=== PATIENT | female | born 1960 | race Hispanic/Latino ===

== ENCOUNTER 2017-04-22 12:45 | Inpatient (IN) | payer BC ==
--- NOTE | 2017-04-22 13:27 | ED PDOC ---
Arrival/HPI - General Chief Complaint: Cough, Cold, Congestion Time Seen by Provider: 04/22/17 13:17 Historian: Patient - History of Present Illness Narrative History of Present Illness (Text): 04/22/17 13:24 57yo female with no PMHx referred to ED from for abnormal EKG. Patient notes 3days history of brownish productive cough and nasal congestion. States she was taking OTC antitussive and had palpation last night. She went to today for her cold symptoms and EKG was abnormal. she however denies chest pain, SOB, diaphoresis, fever, chills, nausea, vomiting, LE edema, GARBER, PND, dizziness, any other complaint. Past Medical History - Provider Review Nursing Documentation Reviewed: Yes - Infectious Disease Hx of Infectious Diseases: None - Psychiatric Hx Substance Use: No - Anesthesia Hx Anesthesia: No Family/Social History - Physician Review Nursing Documentation Reviewed: Yes Family/Social History: Unknown Family HX Smoking Status: Never Smoked Hx Alcohol Use: No Hx Substance Use: No Allergies/Home Meds Allergies/Adverse Reactions: Allergies No Known Allergies Allergy (Verified 04/22/17 13:16) Home Medications: Home Meds Medication Instructions Recorded Confirmed No Known Home Med 04/22/17 04/22/17 Review of Systems - Physician Review All systems were reviewed & negative as marked: Yes - Review of Systems Constitutional: Normal Eyes: Normal ENT: Rhinorrhea, Sinus Congestion Respiratory: Cough, Sputum. absent: Wheezing Cardiovascular: Normal Gastrointestinal: Normal Genitourinary Female: Normal Musculoskeletal: Normal Skin: Normal Neurological: Normal Endocrine: Normal Hemo/Lymphatic: Normal Psychiatric: Normal Physical Exam Vital Signs Reviewed: Yes Vital Signs Temp Pulse Resp BP Pulse Ox 04/22/17 17:11 98.6 F 99 H 20 129/53 L 98 04/22/17 16:46 98 F 97 H 20 129/72 99 04/22/17 15:22 98 F 75 19 119/72 98 04/22/17 13:16 99.2 F 127 H 18 145/88 95 Temperature: Afebrile Blood Pressure: Normal Pulse: Tachycardic Respiratory Rate: Normal Appearance: Positive for: Well-Appearing, Non-Toxic, Comfortable Pain Distress: None Mental Status: Positive for: Alert and Oriented X 3 - Systems Exam Head: Present: Atraumatic, Normocephalic Pupils: Present: PERRL Extroacular Muscles: Present: EOMI Conjunctiva: Present: Normal Mouth: Present: Moist Mucous Membranes Neck: Present: Normal Range of Motion Respiratory/Chest: Present: Clear to Auscultation, Good Air Exchange, Rales. No : Respiratory Distress, Accessory Muscle Use, Decreased Breath Sounds, Retracting, Rhonchi, Tachypneic Cardiovascular: Present: Regular Rate and Rhythm, Normal S1, S2. No: Murmurs Abdomen: Present: Normal Bowel Sounds. No: Tenderness, Distention, Peritoneal Signs Back: Present: Normal Inspection Upper Extremity: Present: Normal Inspection. No: Cyanosis, Edema Lower Extremity: Present: Normal Inspection. No: Edema Neurological: Present: GCS=15, CN II-XII Intact, Speech Normal Skin: Present: Warm, Dry, Normal Color. No: Rashes Psychiatric: Present: Alert, Oriented x 3, Normal Insight, Normal Concentration Medical Decision Making ED Course and Treatment: 04/22/17 19:49 Pt presented for stated history. She was sinus tachy with PVC @121bpm on the EKG. She had leukocytosis. Increase BS was also noted. PT have not seen a doctor and likely a new onset Diabetics Chest xray IMPRESSION: The interstitial markings are increased and quite coarsened with scattered peribronchial cuffing changes. Changes exhibit more confluent appearance in the lower lung zones Findings could represent sequela of reactive/inflammatory airway disease, viral illness and/or interstitial pneumonia. Rule out developing pulmonary edema Cardiomegaly. Blood culutre pending. Zitho and Rocephine given Pt will be admitted for better induction of diabetes medications and education and IV abx. Case was DW Dr. Morgan and he accepted pt. Result and plan was DW the pt and she agreed. - Lab Interpretations Lab Results: 04/22/17 14:30 04/22/17 14:30 Lab Results 04/22/17 14:30: Influenza Typ A,B (EIA) Negative for flu a/b 04/22/17 14:30: Sodium 135, Potassium 4.0, Chloride 96 L, Carbon Dioxide 24, Anion Gap 19, BUN 9, Creatinine 0.6 L, Est GFR ( Amer) > 60, Est GFR (Non -Af Amer) > 60, Random Glucose 290 H, Calcium 9.5, Magnesium 1.9, Total Bilirubin 0.8, AST 27, ALT 32, Alkaline Phosphatase 112, Lactate Dehydrogenase 649, Total Creatine Kinase 62, Troponin I 0.03, Total Protein 8.4 H, Albumin 4.5 , Globulin 3.9, Albumin/Globulin Ratio 1.2 04/22/17 14:30: Urine Color Yellow, Urine Appearance Clear, Urine pH 6.0, Ur Specific [place] 1.020, Urine Protein 30 H, Urine Glucose (UA) >=1000, Urine Ketones Negative, Urine Blood Trace-intact H, Urine Nitrate Negative, Urine Bilirubin Negative, Urine Urobilinogen 0.2, Ur Leukocyte Esterase Negative, Urine RBC Negative, Urine WBC 1 - 3, Ur Epithelial Cells 1 - 3, Urine Bacteria Few 04/22/17 14:30: PT 13.9 H, INR 1.27 H, APTT 27.7 04/22/17 14:30: WBC 13.3 H, RBC 4.46, Hgb 14.2, Hct 41.5, MCV 93.0, MCH 31.8, MCHC 34.2, RDW 12.6, Plt Count 160, MPV 11.5 H, Gran % 78.5 H, Lymph % (Auto) 15.2 L, [place] % (Auto) 6.0, Eos % (Auto) 0.1 L, Baso % (Auto) 0.2, Gran # 10.42 H , Lymph # 2.0, [place] # 0.8 H, Eos # 0.0, Baso # 0.03 - RAD Interpretation Radiology Orders: 04/22/17 13:17 CHEST TWO VIEWS (PA/LAT) [RAD] Stat - Medication Orders Current Medication Orders: Acetaminophen (Tylenol 325mg Tab) 650 mg PO Q6H PRN PRN Reason: Fever >100.4 F Albuterol/Ipratropium (Duoneb 3 Mg/0.5 Mg (3 Ml) Ud) 3 ml IH QID [facility] Stop: 04/23/17 10:01 Doxycycline Hyclate (Doryx) 100 mg PO Q12 [facility] PRN Reason: Protocol Enoxaparin Sodium (Lovenox) 40 mg SC DAILY [facility] PRN Reason: Protocol Last Admin: 04/22/17 16:41 Dose: 40 mg MAR aPTT Document 04/22/17 16:41 GMI (Rec: 04/22/17 16:41 GMI [id number]) aPTT aPTT (secs) 27.7 Subcutaneous Administrations Document 04/22/17 16:41 GMI (Rec: 04/22/17 16:41 GMI [id number]) Injection Site MAR Injection Site Right Abdomen Charges for Administration # of Subcutaneous Administrations 1 Sodium Chloride (Sodium Chloride 0.45%) 1,000 mls @ 75 mls/hr IV .[id number] [facility] Ceftriaxone Sodium (Rocephin 1 Gram Ivpb) 1 gm in 100 mls @ 100 mls/hr IVPB 1600 [facility] PRN Reason: Protocol Azithromycin (Zithromax 500mg In Ns) 500 mg in 250 mls @ 167 mls/hr IVPB 1700 [facility] PRN Reason: Protocol Methylprednisolone (Solu-Medrol) 40 mg IVP Q8 [facility] Nicotine (Nicoderm Cq) 1 patch TD DAILY [facility] Pantoprazole Sodium (Protonix Ec Tab) 40 mg PO 0600 G[facility] Discontinued Medications Sodium Chloride (Sodium Chloride 0.9%) 1,000 mls @ 999 mls/hr IV .Q1H1M STA Stop: 04/22/17 15:09 Last Admin: 04/22/17 14:54 Dose: 999 mls/hr eMAR Start Stop Document 04/22/17 14:54 SE (Rec: 04/22/17 14:54 SE [id number]) Intravenous Solution Start Date 04/22/17 Start Time 14:54 End Date 04/22/17 End time 15:54 Total Infusion Time 60 Ceftriaxone Sodium (Rocephin 1 Gram Ivpb) 1 gm in 100 mls @ 200 mls/hr IVPB STAT STA PRN Reason: Protocol Stop: 04/22/17 16:13 Last Admin: 04/22/17 16:14 Dose: 200 mls/hr eMAR Start Stop Document 04/22/17 16:14 GMI (Rec: 04/22/17 16:16 GMI [id number]) Intravenous Solution Start Date 04/22/17 Start Time 15:30 End Date 04/22/17 End time 16:47 Total Infusion Time 77 Azithromycin (Zithromax 500mg In Ns) 500 mg in 250 mls @ 167 mls/hr IVPB STAT STA PRN Reason: Protocol Stop: 04/22/17 17:14 Last Admin: 04/22/17 16:48 Dose: 167 mls/hr eMAR Start Stop Document 04/22/17 16:48 GMI (Rec: 04/22/17 16:49 GMI [id number]) Intravenous Solution Start Date 04/22/17 Start Time 16:49 Promethazine HCl/Codeine (Phenergan/Codeine Oral Syrup) 5 ml PO STAT STA Stop: 04/22/17 16:53 Last Admin: 04/22/17 17:11 Dose: 5 ml Disposition/Present on Arrival - Present on Arrival Any Indicators Present on Arrival: No History of DVT/PE: No History of Uncontrolled Diabetes: No Urinary Catheter: No History of Decub. Ulcer: No History Surgical Site Infection Following: None - Disposition Have Diagnosis and Disposition been Completed?: Yes Diagnosis: New onset type 2 diabetes mellitus, Pneumonia Disposition: HOSPITALIZED Disposition Time: 16:10 Patient Plan: Admission Condition: FAIR
[2017-04-22] MEDS ORDERED: Sodium Chloride 0.9% 1,000 ML IV STA (14:09)
[2017-04-22 14:45] LABS: URINE BILIRUBIN NEGATIVE (NEGATIVE); URINE BLOOD TRACE-INTACT (NEGATIVE); URINE GLUCOSE (UA) >=1000 mg/dL (NEGATIVE); URINE LEUKOCYTE ESTERASE NEGATIVE Leu/uL (NEGATIVE); URINE NITRATE NEGATIVE (NEGATIVE); URINE PROTEIN 30 mg/dL (<30 mg/dL); URINE UROBILINOGEN 0.2 E.U./dL (<1 E.U./dL)
[2017-04-22 14:52] LABS: URINE APPEARANCE CLEAR (CLEAR); URINE COLOR YELLOW (YELLOW)
[2017-04-22 14:58] LABS: BASO # 0.03 K/mm3 (0.0-2.0); BASO % 0.2 % (0.0-3.0); EOS % 0.1 % (1.5-5.0); GRAN # 10.42 (1.4-6.5); GRAN % 78.5 % (50.0-68.0); HEMOGLOBIN 14.2 g/dL (12.0-16.0); LYMPH % 15.2 % (22.0-35.0); MEAN CORPUSCULAR HEMOGLOBIN 31.8 pg (25.0-35.0); MEAN CORPUSCULAR HGB CONC 34.2 g/dl (31.0-37.0); MEAN PLATELET VOLUME 11.5 fl (7.0-11.0); MONO # 0.8 (0.1-0.6); RBC 4.46 10^6/uL (3.5-6.1); RED CELL DISTRIBUTION WIDTH 12.6 % (11.5-14.5); WHITE BLOOD COUNT 13.3 10^3/ul (4.5-11.0)
[2017-04-22 15:05] LABS: URINE BACTERIA FEW (NEG); URINE RBC NEGATIVE /hpf (0-2)
[2017-04-22 15:12] LABS: INR 1.27 (0.93-1.08); PARTIAL THROMBOPLASTIN TIME 27.7 Seconds (25.1-36.5); PROTHROMBIN TIME 13.9 SECONDS (9.4-12.5)
[2017-04-22 15:18] LABS: TROPONIN I 0.03 ng/mL
--- NOTE | 2017-04-22 15:21 | CARD ---
APPROVED REPORT EKG Measurement Heart [id number] <Conclusion> Sinus tachycardia with frequent premature ventricular complexes Possible Inferior infarct, age undetermined Anterior infarct, age undetermined Abnormal ECG
[2017-04-22 15:26] LABS: ALB/GLOB RATIO 1.2 (1.1-1.8); ALBUMIN 4.5 g/dL (3.0-4.8); ALT/SGPT 32 U/L (7-56); AST/SGOT 27 U/L (14-36); BLOOD UREA NITROGEN 9 mg/dL (7-21); CALCIUM 9.5 mg/dL (8.4-10.5); GFR AFRICAN-AMERICAN > 60; GFR NON-AFRICAN AMERICAN > 60; MAGNESIUM 1.9 mg/dL (1.7-2.2)
[2017-04-22] MEDS ORDERED: cefTRIAXone 1 gm 1 GM/100 ML BAG IVPB STA (15:44)
[2017-04-22] MEDS ORDERED: Azithromycin 500MG/NS 250ml 500 MG/250 ML BAG IVPB STA (15:45)
[2017-04-22] MEDS: Enoxaparin 40 mg Syringe SC SCH (16:41)
[2017-04-22] MEDS ORDERED: Promethazine/Cod 6.25mg-10mg/5ml Syr UD PO STA (16:52)
--- NOTE | 2017-04-22 17:20 | RAD ---
HISTORY: cough COMPARISON: No prior. TECHNIQUE: Chest PA and lateral FINDINGS: LUNGS: The interstitial markings are increased and quite coarsened with scattered peribronchial cuffing changes. Changes exhibit more confluent appearance in the lower lung zones Findings could represent sequela of reactive/inflammatory airway disease, viral illness and/or interstitial pneumonia. Rule out developing pulmonary edema PLEURA: No significant pleural effusion identified. No pneumothorax apparent. CARDIOVASCULAR: Cardiomegaly. OSSEOUS STRUCTURES: Mild multilevel degenerative spondylosis of the thoracic spine. VISUALIZED UPPER ABDOMEN: Normal. OTHER FINDINGS: None. IMPRESSION: The interstitial markings are increased and quite coarsened with scattered peribronchial cuffing changes. Changes exhibit more confluent appearance in the lower lung zones Findings could represent sequela of reactive/inflammatory airway disease, viral illness and/or interstitial pneumonia. Rule out developing pulmonary edema Cardiomegaly. Note this report was placed in PA review folder for followup.
[2017-04-22] MEDS: Albuterol-Ipratrop 3 mg / 0.5 (3 ml) UD IH SCH (20:24)
[2017-04-22 21:36] VITALS: BMI 27.4
[2017-04-23] MEDS: Pantoprazole 40 mg EC Tab PO SCH (06:05)
[2017-04-23] MEDS: Sodium Chloride 0.45% 1,000 ML IV SCH (08:12)
[2017-04-23] MEDS: Albuterol-Ipratrop 3 mg / 0.5 (3 ml) UD IH SCH ×2 (09:15→19:30)
[2017-04-23] MEDS: Enoxaparin 40 mg Syringe SC SCH (09:40)
[2017-04-23] MEDS: cefTRIAXone 1 gm 1 GM/100 ML BAG IVPB SCH (15:56)
[2017-04-23] MEDS: Azithromycin 500MG/NS 250ml 500 MG/250 ML BAG IVPB SCH (17:17)
[2017-04-23] MEDS: Insulin Reg-LOW-Coverage SC SCH (17:18)
--- NOTE | 2017-04-23 19:57 | CON ---
DATE: 04/23/2017 The patient seen earlier today in 366, bed 3. CHIEF COMPLAINT: Cough times several days. HISTORY OF PRESENT ILLNESS: This is a 57-year-old female who has been having cough with nasal congestion. She states that she denies any chest pain. She is having fevers. No abdominal pain, diarrhea or constipation. No bright red blood per rectum. No headaches or blurred vision. PAST MEDICAL HISTORY: Significant for chronic obstructive lung disease. The patient is a longtime active smoker. She states she quit smoking yesterday and she is having fevers here. PAST SURGICAL HISTORY: Noncontributory. ALLERGIES: THE PATIENT HAS NO KNOWN ALLERGIES. SOCIAL HISTORY: She has no travel history. She does have cats and no associated tuberculosis. PHYSICAL EXAMINATION: GENERAL: The patient is in bed, appearing chronically ill. She appears much older than her stated age of 57. VITAL SIGNS: Temperature of 102.7, heart rate of 99 was up to 127, blood pressure is 120/50, respiratory rate of 20, oxygen saturation at 95%. HEENT: Unremarkable. NECK: Supple. LUNGS: Have decreased breath sounds. HEART: Normal S1, S2. ABDOMEN: Soft and nontender. LABORATORY EXAMINATION: Reveals a white count of 13,300, hemoglobin of 14, platelets of 160 and coagulation is noted. Chemistries reveals a BUN of 9, creatinine 0.6, glucose is 290 and urinalysis is noted 1 to 3 WBCs. The patient's influenza is negative. The patient had a chest x-ray, which showed a interstitial markings increased and Dr. Luke Leslie's reading may represent sequelae of reactive inflammatory airway disease and viral illness, interstitial pneumonia, inflammatory disease, reactive disease, rule out developing pulmonary edema. Her peribronchial cuffing is quite course and scattered interstitial markings. Review of the chest x-ray, the x-ray itself reveals significant lower lobe findings and the patient's EKG assessment reveals a QTC of 434, heart rate of 121, sinus tachycardia, premature ventricular complicated complexes and possible inferior infarct. ASSESSMENT AND PLAN: This is a 57-year-old female, long-time active smoker who is admitted with a fever of 102.7, heart rate of 127, positive infiltrate and continues to be a smoker with number one is sepsis with what appears to be a bilateral community-acquired pneumonia and order blood cultures x2, urine cultures, sputum culture, urine for Legionella antigen, HIV test, procalcitonin, hemoglobin A1c and the patient is on doxycycline by Dr. Denny. The patient is placed on azithromycin by Dr. Morgan. The patient is placed on ceftriaxone by Dr. Morgan. We will treat the patient with ceftriaxone and azithromycin, discontinue the doxycycline and pending yan-culture and initial workup results. We will follow with you. Bobo Bess MD
[2017-04-23 22:52] LABS: URINE BILIRUBIN NEGATIVE (NEGATIVE); URINE BLOOD TRACE-INTACT (NEGATIVE); URINE GLUCOSE (UA) >=1000 mg/dL (NEGATIVE); URINE LEUKOCYTE ESTERASE NEGATIVE Leu/uL (NEGATIVE); URINE NITRATE NEGATIVE (NEGATIVE); URINE PROTEIN NEGATIVE mg/dL (<30 mg/dL); URINE UROBILINOGEN 0.2 E.U./dL (<1 E.U./dL)
[2017-04-23 23:01] LABS: URINE APPEARANCE CLEAR (CLEAR); URINE COLOR YELLOW (YELLOW)
[2017-04-23 23:08] LABS: URINE BACTERIA NEG (NEG); URINE RBC 0 - 2 /hpf (0-2)
--- NOTE | 2017-04-23 23:44 | HP ---
The patient was seen in Emergency Room. REASON FOR COMING TO THE ER: Short of breath, coughing, and fever. HISTORY OF PRESENT ILLNESS: Kim is a 57-year-old female. She does not go to any doctor. She feels healthy, but she does smoke a pack a day; otherwise, there is no history of medical problem except what brought her here with coughing, phlegm, and not getting better for the last week or two or 10 days. She is not feeling well, she is short of breath, and she feels sick, and she came to the ER for evaluation. The patient denied any use of any medications. Denied any nausea, vomiting, or diarrhea. PAST MEDICAL HISTORY: As I mentioned negative; none. ALLERGIES: NO KNOWN ALLERGY. FAMILY HISTORY: Positive for CVA, stroke, cardiac events, coronary artery disease, and one person had a brain cancer uncle, otherwise negative. SOCIAL HISTORY: She smokes for years. Alcohol; none and substance abuse is none. PHYSICAL EXAMINATION: VITAL SIGNS: Temperature 102.7, heart rate is 113, respirations 18, cannula 2 L, blood pressure 148/82, and saturation is 98% on room air. HEAD AND NECK: Normal. No JVD. No thyromegaly. CHEST: Reveals a few crackles on the left base, clear right lung. CARDIAC: First sound and second sound normal. ABDOMEN: Soft and nontender. EXTREMITIES: No edema. NEUROLOGIC: Normal. LABORATORY DATA: White count 16.3, hemoglobin 14.2, hematocrit 41.5, and platelets 160. Chemistry noted for sodium 135, potassium 4, chloride 96, bicarbonate 24, BUN 9, and creatinine 0.6. Blood sugar 290. Liver enzymes are normal. Albumin and globulin is normal. Chest x-rays shows pneumonia. Chest x-ray on admission shows increased interstitial marking, scattered cuffing changes, more confluent in the left lower lung zone and pneumonia. IMPRESSION AND PLAN: 1. A 57-year-old female came in with respiratory symptoms, coughing, and short of breath. X-rays shows pneumonia. We will admit the patient with acute community-acquired pneumonia and put the patient on Rocephin and Zithromax. We will get a Pulmonary consult and ID consult. 2. Smoking, continue Nicoderm. 3. The patient seems having possible diabetes. We will give her insulin coverage plus we will get a hemoglobin A1c and we will follow up clinically. We will continue giving the IV fluids for now. DVT and GI prophylaxis. Follow up clinically. Luke Morgan MD
[2017-04-24] MEDS: Acetylcysteine 20% Inhal Soln (4ml) IH SCH ×3 (00:05→19:59)
[2017-04-24] MEDS: Insulin Reg-LOW-Coverage SC SCH ×5 (00:05→22:23)
[2017-04-24] MEDS: Albuterol-Ipratrop 3 mg / 0.5 (3 ml) UD IH SCH ×5 (00:07→20:00)
[2017-04-24] MEDS: Sodium Chloride 0.45% 1,000 ML IV SCH (00:07)
--- NOTE | 2017-04-24 00:18 | PN ---
DATE: 04/23/2017 PULMONARY PROGRESS NOTE REFERRING PHYSICIAN: Luke Morgan MD SUBJECTIVE: She is sitting up in a bed, feels better. Still cough and shortness of breath. No nausea. No vomiting, diarrhea, leg pain, or leg swelling. OBJECTIVE: GENERAL: In no acute distress. VITAL SIGNS: Temperature is 98, T-max was 102.7, heart rate is 102, respiratory rate is 20, blood pressure is 121/81, and pulse ox is 93% on 2 L nasal cannula. HEENT: Moist mucous membrane. Crowded airway. Mallampati score is IV. NECK: Supple. No JVD. LUNGS: Has a crackles and rhonchi. HEART: S1 and S2. ABDOMEN: Soft and nontender. No organomegaly. EXTREMITIES: There is no edema. NEUROLOGIC: Awake and alert, and follow simple commands. MEDICATIONS: She is on DuoNeb four times a day., Ecotrin 81 mg daily, insulin coverage, Januvia 100 mg daily, Lovenox 40 mg daily, Nicoderm patch daily, Protonix 40 mg daily, Ceftin 1 g daily, Solu-Medrol 40 mg q. 8 hours, Tylenol p.r.n., Zithromax 500 mg daily. LABORATORY DATA: Reviewed. Blood sugar this morning 276, hemoglobin A1c is 10.5, procalcitonin was 0.08. Influenza A and B is negative. IMPRESSION AND PLAN: Bilateral pulmonary infiltrate, chronic obstructive lung disease, still have a fever. The patient is urged to stop smoking. We will watch another day or so, if fever does not get better. We will need CT of the chest. Her procalcitonin is normal, something else happening in the lung parenchyma like interstitial disease. Human immunodeficiency virus antibodies already requested. Legionella antigen is ordered. Thank you and we will follow with you. Louie Denny MD
--- NOTE | 2017-04-24 01:16 | PN ---
DATE: SUBJECTIVE: A 57-year-old female came into the hospital with diagnosis of pneumonia. The patient feels better with nebulizer treatment. She feels better somehow from treatment given nebulizer. She was less dyspneic and less coughing. PHYSICAL EXAMINATION: VITAL SIGNS: As follows; temperature 97.8, heart rate 102, blood pressure 121/81, respirations 21, and saturation 93% on 2 L. HEAD AND NECK: Normal. No JVD. No thyromegaly. CHEST: There is basal crackles on both sides. CARDIAC: First sound and second sound normal. ABDOMEN: Soft and nontender. EXTREMITIES: No edema. NEUROLOGIC: Normal. IMPRESSION AND PLAN: 1. Acute community-acquired pneumonia. Continue IV Rocephin and Zithromax. 2. Chronic obstructive pulmonary disease exacerbation. Continue steroids as . We will continue nebulizer treatment and make it as four times daily and q.4 hours p.r.n. Continue current therapy. 3. Diabetes. Her sugar is elevated. We will repeat lab in the morning. We will do insulin coverage. Hemoglobin A1c came back to 10.5, which is elevated, diabetic education given and starting therapy. We will add metformin to diabetes and we will get a CT of the lung for further evaluation. Continue current therapy. Luke Morgan MD
[2017-04-24] MEDS: Pantoprazole 40 mg EC Tab PO SCH (06:33)
[2017-04-24 07:40] LABS: BLOOD UREA NITROGEN 16 mg/dL (7-21); CALCIUM 9.7 mg/dL (8.4-10.5); GFR AFRICAN-AMERICAN > 60; GFR NON-AFRICAN AMERICAN > 60; HDL CHOLESTEROL 28 mg/dL (29-60); LDL CHOLESTEROL 140 mg/dL (0-129)
[2017-04-24] MEDS ORDERED: Iohexol 350 MG/100 ML VIAL ONE (08:34)
--- NOTE | 2017-04-24 09:04 | CON ---
DATE: 04/22/2017 REFERRING PHYSICIAN: Luke Morgan MD REASON FOR CONSULT: Cough, shortness of breath. HISTORY OF PRESENT ILLNESS: This is a 57-year-old female with past medical history significant for probably chronic lung disease. She is active smoker. From the last few days has been having rhinitis, postnasal drip, cough, and shortness of breath. Failed over the counter medications, came into ER where she is admitted for further workup. She admitted to have snoring, daytime sleepy, and tired. There is no hemoptysis. No nausea, vomiting, diarrhea, leg pain, leg swelling. PAST MEDICAL HISTORY: There is suspected COPD. SOCIAL HISTORY: She is active smoker. No alcohol abuse. FAMILY HISTORY: Positive for sleep apnea syndrome. ALLERGIES: NONE KNOWN. MEDICATIONS: She received DuoNeb q.i.d., Lovenox 40 mg given, Rocephin 1 g IV was given, also Phenergan with Codeine one dose given. REVIEW OF SYSTEMS: Has some headache, facial discomfort, cough, shortness of breath. No chest pain, no nausea, no vomiting. No leg pain, leg swelling. PHYSICAL EXAMINATION: GENERAL: Lying in the bed, [id number] distress due to cough and shortness of breath. VITAL SIGNS: Temperature is 98, heart rate is 99, respiratory rate is 20, blood pressure 129/53, pulse ox 98% on room air. HEENT: Moist mucous membrane. Crowded airway. Mallampati score is 4. NECK: Supple. No JVD. LUNGS: Bilateral wheezing. HEART: S1 and S2. ABDOMEN: Soft, nontender. No organomegaly. EXTREMITIES: There is no edema. NEUROLOGIC: Awake and follows simple commands. LABORATORY DATA: Shows hemoglobin 14.2, hematocrit 41.5, WBC 13.3, platelet count is 160. INR 1.27, PTT is 28. Sodium 135, potassium 4.0, chloride 96, bicarbonate 24, BUN 9, creatinine 0.6, glucose of 290, calcium 9.5, magnesium 1.9. AST 27, ALT 32, alk phos is 112. LDH 649. Troponin 0.03, albumin 4.5. Urinalysis shows wbc 1 to 3, rbc 1 to 3. Influenza A and B negative. Chest x-ray done in ER shows bilateral interstitial infiltrate, peribronchial cuffing changes, also has cardiomegaly. IMPRESSION AND PLAN: Exacerbation of chronic obstructive lung disease, may have pneumonia. The patient urged to stop smoking. We will place her on Nicoderm patch, Solu-Medrol, doxycycline. We will get procalcitonin, ProBNP in the morning. Gastric prophylaxis, DVT prophylaxis. May have a component of sleep apnea syndrome. Avoid sedation. We will recommend sleep study upon discharge as outpatient. Thank you and we will follow with you. Louie Denny MD
--- NOTE | 2017-04-24 09:40 | CT ---
PROCEDURE: CT Chest with and without contrast HISTORY: pnemonia. COMPARISON: None. TECHNIQUE: Contiguous axial images were obtained through the chest with intravenous contrast enhancement. Sagittal and coronal reconstructions were performed. IV contrast: 100 cc of Omni 350 Radiation dose (DLP): 850 mGy-cm. This CT exam was performed using one or more of the following dose reduction techniques: Automated exposure control, adjustment of the mA and/or kV according to patient size, and/or use of iterative reconstruction technique. FINDINGS: LUNGS: There is a diffuse alveolar infiltrate with air bronchograms especially in the upper lobes and superior segments of the lower lobes. The findings are consistent with the clinical history of pneumonia. However pulmonary edema can have a similar appearance MEDIASTINUM: Unremarkable thoracic aorta. No aneurysm or dissection. Normal sized heart. Main pulmonary artery unremarkable. No vascular congestion. There are some enlarged mediastinal lymph nodes the largest measuring 12 x 30 mm in the anterior mediastinum. These could represent reactive nodes. PLEURA: Small left effusion BONES: No fracture. No destructive lesion. UPPER ABDOMEN: Multiple gallstones. The gallbladder is contracted. OTHER FINDINGS: None. IMPRESSION: There is a diffuse alveolar infiltrate with air bronchograms especially in the upper lobes and superior segments of the lower lobes. The findings are consistent with the clinical history of pneumonia. However pulmonary edema can have a similar appearance
[2017-04-24] MEDS: Enoxaparin 40 mg Syringe SC SCH (10:16)
--- NOTE | 2017-04-24 13:03 | CP.PCM.PN ---
Subjective - Date & Time of Evaluation Date of Evaluation: 04/24/17 Time of Evaluation: 10:55 - Subjective Subjective: Patient is feeling better, no fevers overnight, not in distress, breathing better. Objective - Vital Signs/Intake and Output Vital Signs (last 24 hours): Temp Pulse Resp BP Pulse Ox 97.8 F 102 H 20 124/86 93 L 04/24/17 08:21 04/24/17 08:21 04/24/17 08:21 04/24/17 08:21 04/23/17 16:30 Intake and Output: 04/24/17 04/24/17 06:59 18:59 Intake Total 420 Balance 420 - Medications Medications: Current Medications Acetaminophen (Tylenol 325mg Tab) 650 mg PO Q6H PRN PRN Reason: Fever >100.4 F Last Admin: 04/22/17 20:21 Dose: 650 mg Acetylcysteine (Acetylcysteine 20%) 3 ml IH BIDRESP [facility] Last Admin: 04/24/17 07:46 Dose: 3 ml Albuterol/Ipratropium (Duoneb 3 Mg/0.5 Mg (3 Ml) Ud) 3 ml IH QIDRESP [facility] Last Admin: 04/24/17 07:46 Dose: 3 ml Aspirin (Ecotrin) 81 mg PO DAILY [facility] Last Admin: 04/24/17 10:16 Dose: 81 mg Enoxaparin Sodium (Lovenox) 40 mg SC DAILY [facility] PRN Reason: Protocol Last Admin: 04/24/17 10:16 Dose: 40 mg Ceftriaxone Sodium (Rocephin 1 Gram Ivpb) 1 gm in 100 mls @ 100 mls/hr IVPB 1600 [facility] PRN Reason: Protocol Last Admin: 04/23/17 15:56 Dose: 100 mls/hr Azithromycin (Zithromax 500mg In Ns) 500 mg in 250 mls @ 167 mls/hr IVPB 1700 [facility] PRN Reason: Protocol Last Admin: 04/23/17 17:17 Dose: 167 mls/hr Insulin Human Regular (Humulin R Low) 0 units SC ACHS [facility] PRN Reason: Protocol Last Admin: 04/24/17 12:02 Dose: 4 units Metformin HCl (Glucophage) 500 mg PO BID [facility] Last Admin: 04/24/17 10:16 Dose: 500 mg Methylprednisolone (Solu-Medrol) 40 mg IVP Q8 [facility] Last Admin: 04/24/17 06:33 Dose: 40 mg Nicotine (Nicoderm Cq) 1 patch TD DAILY [facility] Last Admin: 04/24/17 10:24 Dose: Not Given Pantoprazole Sodium (Protonix Ec Tab) 40 mg PO 0600 [facility] Last Admin: 04/24/17 06:33 Dose: 40 mg Sitagliptin Phosphate (Januvia) 100 mg PO DAILY [facility] Last Admin: 04/24/17 10:16 Dose: 100 mg - Labs Labs: 04/24/17 06:30 PT 13.9 SECONDS (9.4-12.5) H 04/22/17 14:30 INR 1.27 (0.93-1.08) H 04/22/17 14:30 APTT 27.7 Seconds (25.1-36.5) 04/22/17 14:30 - Constitutional Appears: Non-toxic - Head Exam Head Exam: NORMAL INSPECTION - ENT Exam ENT Exam: Mucous Membranes Moist - Neck Exam Neck Exam: absent: Lymphadenopathy, Meningismus - Respiratory Exam Respiratory Exam: Decreased Breath Sounds, Rales (scattered) - Cardiovascular Exam Cardiovascular Exam: +S1, +S2 - GI/Abdominal Exam GI & Abdominal Exam: Soft. absent: Tenderness Assessment and Plan - Assessment and Plan (Free Text) Plan: Assessment Sepsis due to bilateral community-acquired pneumonia COPD significant smoking history Plan Continue Rocephin and Zithromax to complete 5-7 days of therapy will monitor clinically
[2017-04-24 13:57] LABS: HEMOGLOBIN 13.9 g/dL (12.0-16.0); MEAN CELL VOLUME 91.2 fl (80.0-105.0); MEAN CORPUSCULAR HEMOGLOBIN 31.4 pg (25.0-35.0); MEAN CORPUSCULAR HGB CONC 34.5 g/dl (31.0-37.0); MEAN PLATELET VOLUME 11.3 fl (7.0-11.0); RBC 4.42 10^6/uL (3.5-6.1); RED CELL DISTRIBUTION WIDTH 12.5 % (11.5-14.5); WHITE BLOOD COUNT 22.2 10^3/ul (4.5-11.0)
[2017-04-24] MEDS: cefTRIAXone 1 gm 1 GM/100 ML BAG IVPB SCH (15:33)
[2017-04-24] MEDS: Azithromycin 500MG/NS 250ml 500 MG/250 ML BAG IVPB SCH (19:08)
--- NOTE | 2017-04-24 19:47 | PN ---
PULMONARY PROGRESS NOTE DATE: 04/24/2017 REFERRING PHYSICIAN: Luke Morgan MD SUBJECTIVE: She is sitting up in a bed. Family is at bedside. Feels better. Still have cough and shortness of breath. No nausea. No vomiting, diarrhea, leg pain, or leg swelling. OBJECTIVE: GENERAL: In no acute distress. VITAL SIGNS: Temperature is 98, heart rate is 102, respiratory rate is 20, blood pressure is 132/86, and pulse ox is 93% on 2 L nasal cannula. HEENT: Moist mucous membrane. Crowded airway. NECK: Supple. No JVD. LUNGS: Has a crackles and rhonchi. HEART: S1 and S2. ABDOMEN: Soft and nontender. No organomegaly. EXTREMITIES: There is no edema. NEUROLOGIC: Awake and alert, and follow simple commands. MEDICATIONS: She is on Mucomyst 20% inhaled twice a day, DuoNeb q.6 hours, Ecotrin 81 mg daily, metformin 500 mg twice a day, insulin coverage, Januvia 100 mg daily, Lovenox 40 mg daily, Nicoderm patch daily, which she is taking it, Protonix 40 mg daily, Rocephin 1 g daily, Solu-Medrol 40 mg q.8 hours, Tylenol p.r.n., and Zithromax 500 mg daily. LABORATORY DATA: Shows hemoglobin 13.9, hematocrit 40.3, WBC 22,000, and platelet that is 194. Sodium 138, potassium 4.2, chloride 100, bicarbonate 24, BUN 16, creatinine 0.5, glucose of 296, calcium 9.7, proBNP is 1060, and cholesterol is 176. Has a CAT scan of the chest done yesterday evening, which shows diffuse alveolar infiltrate with air bronchogram especially in the upper lobe and superior segment of the lower lobe. The findings are consistent that there is clinical history of pneumonia; however, pulmonary edema cannot be excluded. IMPRESSION AND PLAN: Bilateral pulmonary infiltrate, chronic obstructive lung disease, active smoker, admitted with fever, most likely pneumonia, interstitial disease, but bothersome. Her procalcitonin is normal. We will continue antibiotics. Continue IV and inhaled bronchodilator. We will get echocardiogram to assess right ventricular and left ventricular function. Also being followed by Infectious Disease. Thank you and we will follow with you. Louie Denny MD [facility] # [id number]
[2017-04-25] MEDS: Pantoprazole 40 mg EC Tab PO SCH (05:35)
--- NOTE | 2017-04-25 06:00 | PN ---
DATE: 04/24/2017 SUBJECTIVE: The patient is feeling better. Less coughing. Less short of breath. The nebulizer treatment helped a lot. Blood sugars are being managed through his medications and insulin coverage. PHYSICAL EXAMINATION: VITAL SIGNS: Temperature 98, heart rate 102, blood pressure 124/86, and respirations 20, on 2 L of O2. HEAD AND NECK: Normal. No JVD. No thyromegaly. CHEST: Diminished breath sounds in the bases, associated with crepitation on both sides, and rhonchi. CARDIAC: First and second sounds are normal. ABDOMEN: Soft, nontender. EXTREMITIES: No edema. NEUROLOGIC: Normal. DIAGNOSTIC DATA: Blood cultures x2, negative. Gram stain was negative, and also, urine culture was negative. The patient also had a CT scan of her chest, which shows the following report: There were infiltrates with a bronchogram, consistent with pneumonia, in the upper lobes and superior segment of lower lobes. LABORATORY DATA: For 04/24/2017, white count 22.2, hemoglobin 16.9, hematocrit 48.3, and platelets 194. Chemistry: Blood sugar running in the 200-300 range, probably steroids-related. Sodium 138, potassium 4.2, chloride 100, bicarbonate 24, BUN 16, creatinine 0.5, blood sugar 296, calcium 9.7. Also noted, ProBNP is 1060. LDL is 140. HDL 28. IMPRESSION AND PLAN: 1. Multilobular pneumonia - community-acquired. Continue IV antibiotics. Dr. Bess and Dr. Guerrero - Infectious Disease consultation have seen the patient, and also Dr. Denny - Pulmonary consult has seen the patient. Currently, the patient is getting antibiotics which is Rocephin 1 g IV daily and Zithromax 500 mg IV daily. She was also given Solu-Medrol Plus inhaled bronchodilators. 2. Diabetes, new onset. Diabetic education, metformin, and Januvia. We will continue followup on that and we will follow up clinically. 3. We will add hypercholesterolemia medication Lipitor, and we will follow up. Continue current therapy. Luke Morgan MD
[2017-04-25] MEDS: Albuterol-Ipratrop 3 mg / 0.5 (3 ml) UD IH SCH ×4 (08:31→19:52)
[2017-04-25] MEDS: Acetylcysteine 20% Inhal Soln (4ml) IH SCH ×2 (08:31→19:52)
[2017-04-25] MEDS: Insulin Reg-LOW-Coverage SC SCH (08:55)
[2017-04-25] MEDS ORDERED: Insulin Detemir 100 units/ml Vial (Levemir) SC SCH (10:00)
[2017-04-25] MEDS: Enoxaparin 40 mg Syringe SC SCH (10:39)
[2017-04-25] MEDS: Insulin Reg-MEDIUM-Coverage SC SCH ×3 (12:51→22:07)
--- NOTE | 2017-04-25 15:08 | CARD ---
APPROVED REPORT EKG Measurement Heart [id number] <Conclusion> Sinus tachycardia Possible Inferior infarct, age undetermined Abnormal ECG
--- NOTE | 2017-04-25 16:34 | CP.PCM.PN ---
Subjective - Date & Time of Evaluation Date of Evaluation: 04/25/17 Time of Evaluation: 11:00 - Subjective Subjective: Patient still having bouts of hypoxia but is feeling better, less cough. No fevers. Objective - Vital Signs/Intake and Output Vital Signs (last 24 hours): Temp Pulse Resp BP Pulse Ox 98 F 127 H 22 132/86 90 L 04/24/17 16:00 04/24/17 16:00 04/24/17 16:00 04/24/17 16:00 04/24/17 16:00 Intake and Output: 04/25/17 04/25/17 06:59 18:59 Intake Total 600 Balance 600 - Medications Medications: Current Medications Acetaminophen (Tylenol 325mg Tab) 650 mg PO Q6H PRN PRN Reason: Fever >100.4 F Last Admin: 04/22/17 20:21 Dose: 650 mg Acetylcysteine (Acetylcysteine 20%) 3 ml IH BIDRESP [facility] Last Admin: 04/25/17 08:31 Dose: 3 ml Albuterol/Ipratropium (Duoneb 3 Mg/0.5 Mg (3 Ml) Ud) 3 ml IH QIDRESP [facility] Last Admin: 04/25/17 08:31 Dose: 3 ml Aspirin (Ecotrin) 81 mg PO DAILY [facility] Last Admin: 04/24/17 10:16 Dose: 81 mg Enoxaparin Sodium (Lovenox) 40 mg SC DAILY [facility] PRN Reason: Protocol Last Admin: 04/24/17 10:16 Dose: 40 mg Ceftriaxone Sodium (Rocephin 1 Gram Ivpb) 1 gm in 100 mls @ 100 mls/hr IVPB 1600 [facility] PRN Reason: Protocol Last Admin: 04/24/17 15:33 Dose: 100 mls/hr Azithromycin (Zithromax 500mg In Ns) 500 mg in 250 mls @ 167 mls/hr IVPB 1700 [facility] PRN Reason: Protocol Last Admin: 04/24/17 19:08 Dose: 167 mls/hr Insulin Detemir (Levemir) 10 unit SC QAM [facility] Insulin Human Regular (Humulin R Low) 0 units SC ACHS [facility] PRN Reason: Protocol Last Admin: 04/25/17 08:55 Dose: 3 units Metformin HCl (Glucophage) 500 mg PO BID [facility] Last Admin: 04/24/17 17:27 Dose: 500 mg Methylprednisolone (Solu-Medrol) 40 mg IVP Q8 [facility] Last Admin: 04/25/17 05:35 Dose: 40 mg Nicotine (Nicoderm Cq) 1 patch TD DAILY [facility] Last Admin: 04/24/17 10:24 Dose: Not Given Pantoprazole Sodium (Protonix Ec Tab) 40 mg PO 0600 [facility] Last Admin: 04/25/17 05:35 Dose: 40 mg Sitagliptin Phosphate (Januvia) 100 mg PO DAILY [facility] Last Admin: 04/24/17 10:16 Dose: 100 mg - Labs Labs: 04/24/17 13:45 04/24/17 06:30 PT 13.9 SECONDS (9.4-12.5) H 04/22/17 14:30 INR 1.27 (0.93-1.08) H 04/22/17 14:30 APTT 27.7 Seconds (25.1-36.5) 04/22/17 14:30 - Constitutional Appears: Chronically Ill - Head Exam Head Exam: NORMAL INSPECTION - Neck Exam Neck Exam: absent: Meningismus - Respiratory Exam Respiratory Exam: Decreased Breath Sounds - Cardiovascular Exam Cardiovascular Exam: +S1, +S2 - GI/Abdominal Exam GI & Abdominal Exam: Soft. absent: Tenderness Assessment and Plan - Assessment and Plan (Free Text) Plan: Assessment Sepsis due to bilateral community-acquired pneumonia COPD significant smoking history Plan Continue Rocephin and Zithromax to complete 5-7 days of therapy (Day 3 today) will continue to monitor clinically
[2017-04-25] MEDS: cefTRIAXone 1 gm 1 GM/100 ML BAG IVPB SCH (16:53)
[2017-04-25] MEDS: Azithromycin 500MG/NS 250ml 500 MG/250 ML BAG IVPB SCH (17:38)
--- NOTE | 2017-04-25 19:06 | CARD ---
APPROVED REPORT EXAM: Two-dimensional and M-mode echocardiogram with Doppler and color Doppler. INDICATION Congestive Heart Failure 2D DIMENSIONS Left Atrium (2D)4.3 (1.6-4.0cm)IVSd1.1 (0.7-1.1cm) LVDd5.6 (3.9-5.9cm)PWd1.1 (0.7-1.1cm) LVDs4.9 (2.5-4.0cm)FS (%) 13.4 % LVEF (%)27.9 (>50%) M-Mode DIMENSIONS Aortic Root2.70 (2.2-3.7cm)Aortic Cusp Exc.1.80 (1.5-2.0cm) Aortic Valve AoV Peak Fnugsaxp642.0cm/Bell Peak GR.8mmHg Mitral Valve E/A ratio0.0 TDI E/Lateral E'0.0E/Medial E'0.0 Tricuspid Valve TR Peak [id number] [id number] Peak Gr.34mmHg [id number] LEFT VENTRICLE The Left Ventricle is mildly dilated. There is normal left ventricular wall thickness. The systolic function is severely impaired.EF-25-30% There is normal LV segmental wall motion. The left ventricular diastolic function is normal. No left ventricle thrombus noted on this study. There is no ventricular septal defect visualized. There is no left ventricular aneurysm. There is no mass noted in the left ventricle. RIGHT VENTRICLE The right ventricle is normal size. There is normal right ventricular wall thickness. The right ventricular systolic function is normal. ATRIA The left atrium is mildly dilated. The right atrium size is normal. The interatrial septum is intact with no evidence for an atrial septal defect. AORTIC VALVE The aortic valve is normal in structure. No aortic regurgitation is present. There is no aortic valvular stenosis. There is no aortic valvular vegetation. MITRAL VALVE The mitral valve is thickened but opens well. Mitral regurgitation is severe. There is no mitral valve stenosis. There is no evidence of mitral valve prolapse. TRICUSPID VALVE The tricuspid valve leaflets are thickened , but open well. There is mild tricuspid regurgitation.RVSP-44 mmof Hg There is no tricuspid valve stenosis. There is no tricuspid valve prolapse or vegetation. PULMONIC VALVE The pulmonary valve is normal in structure. There is no pulmonic valvular regurgitation. There is no pulmonic valvular stenosis. GREAT VESSELS The aortic root is normal in size. The ascending aorta is normal in size. The pulmonary artery is normal. The IVC is dilated. PERICARDIAL EFFUSION There is no pleural effusion. There is no pericardial effusion. <Conclusion> The Left Ventricle is mildly dilated. There is normal left ventricular wall thickness. The systolic function is severely impaired.EF-25-30% Mitral regurgitation is severe. There is mild tricuspid regurgitation.RVSP-44 mmof Hg The IVC is dilated. There is no pericardial effusion.
--- NOTE | 2017-04-25 21:16 | CON ---
DATE: 04/25/2017 REASON FOR CONSULTATION: Cardiac evaluation, abnormal EKG, elevated BNP, admitted with pneumonia, bilateral. SUBJECTIVE: This is a 57 year old, nonsmoker, female, admitted here with bilateral pneumonia, complaining of shortness of breath after he go sick. Patient denies any episode of chest pain prior to this sickness episode of shortness of breath or dyspnea on exertion. PAST MEDICAL HISTORY: No history of hypertension or coronary artery disease. FAMILY HISTORY: Significant for coronary artery disease, one sister in a stent, secondary sister with congestive heart failure with 3 stents and ultimately she . Mother had a stent. ALLERGIES: NO KNOWN DRUG ALLERGIES. CURRENT MEDICATIONS: At home, none. SOCIAL HISTORY: Denies any history of alcohol abuse. Denies any history of substance abuse. PHYSICAL EXAMINATION VITAL SIGNS: As follows; temperature afebrile, heart rate 102, blood pressure 124/86. HEENT: PERRLA. Extraocular muscles intact. NECK: Supple. No carotid bruits or thyromegaly. CHEST: Clear to auscultation. HEART: S1 and S2, regular. ABDOMEN: Soft. EXTREMITIES: Clubbing and cyanosis negative. LABORATORY DATA: Blood workup as follows, WBC 22.2, hemoglobin 13.9, hematocrit 40.3, platelet count 194. Chemistry shows sodium 130, potassium 4.2, chloride 100, carbon dioxide 24, anion gap of 18, BUN 16, creatinine 0.5. Triglycerides 134, cholesterol 176, LDL 140, HDL 28, BNP 1060, hemoglobin A1c 10.6. IMPRESSION: This is a 57-year-old female with no significant past medical history admitted with pneumonia, elevated BNP, multilobar pneumonia, shortness of breath, elevated BNP. EKG showed normal sinus with deep Q wave in lead 3, possible inferior wall myocardial infarction of undetermined age. RECOMMENDATION: We will get echo to assess the LV function. Consider stress test because of strong family history of coronary artery disease and abnormal EKG and multiple risk factors including patient was diabetic, unaware of, hemoglobin A1C of 10.9, suggest stress test in 4 weeks'. Arrangements have been made as outpatient stress test in 4 weeks'. Interim, we will continue broad spectrum antibiotics. Continue gentle diuretics. Echo to assess LV function. Further recommendation after the echo. We will follow with you. We will get the DVT prophylaxis also. Continue baby aspirin. Repeat chest x-ray in the morning. We will get TSH also in the morning. Repeat CBC and complete profile. Thank you Dr. Morgan for providing us the opportunity in taking care of the patient Shaila. Louie Harding MD
--- NOTE | 2017-04-26 01:16 | PN ---
DATE: 04/25/2017 PULMONARY PROGRESS NOTE REFERRING PHYSICIAN: Luke Morgan MD SUBJECTIVE: She is sitting up in a bed, events noted and requiring higher concentration of oxygen. Clinically, she feels better. Still have a cough and shortness of breath. No nausea. No vomiting, diarrhea, leg pain, or leg swelling. OBJECTIVE: GENERAL: In no acute distress. VITAL SIGNS: Temperature is 98, heart rate 120, respiratory rate is 22, blood pressure is 138/88, and pulse oximetry is 90% on Venturi mask. HEENT: Moist mucous membrane. Crowded airway. NECK: Supple. No JVD. LUNGS: Have a crackles on the both lung hardin. HEART: S1 and S2. ABDOMEN: Soft and nontender. No organomegaly. EXTREMITIES: There is no edema. NEUROLOGIC: Awake and alert, and follow simple commands. MEDICATIONS: She is on Mucomyst 20% inhaled twice a day, Coreg 3.125 mg twice a day, DuoNeb q.i.d., Ecotrin 81 mg daily, metformin 500 mg twice a day, insulin coverage, Januvia 100 mg daily, Lasix 40 mg daily, Levemir 10 units subcutaneous a.m., Lovenox 40 mg daily, Nicoderm patch daily, which she refused, Protonix 40 mg daily, Rocephin 1 g daily, Solu-Medrol 40 mg q. 8 hours, Tylenol p.r.n., Zestril 2.5 mg daily, and Zithromax 500 mg daily. LABORATORY DATA: Shows blood sugar this morning 234. Urine legionella and pneumoniae antigen is negative. HIV is negative. Influenza antibody is negative. Microbiology: Blood culture and sputum culture is negative. Urine culture is negative. DIAGNOSTIC DATA: Echocardiogram done today which shows right ventricular systolic pressure is 44, left ventricle is mildly dilated, normal left ventricle wall thickness, diastolic function is severely reduced to 25% to 30%, and mild tricuspid regurgitation. IMPRESSION AND PLAN: Bilateral pulmonary infiltrate, chronic obstructive lung disease, and active smoker, so found to have a severe cardiomyopathy with left ventricular ejection fraction of 20%, so this probably is a pulmonary edema. I agree with diuretics and may need further cardiac workup. Can she benefit from pressor, for now cut down the steroids. Continue inhaled bronchodilator. Gastric prophylaxis and deep venous thrombosis prophylaxis. Thank you and we will follow with you. Louie Denny MD [facility] # [id number]
[2017-04-26] MEDS ORDERED: MethylPREDNISolone 40 mg Vial IVP SCH (06:00)
[2017-04-26] MEDS: Pantoprazole 40 mg EC Tab PO SCH (06:02)
[2017-04-26 06:33] LABS: BASO # 0.06 K/mm3 (0.0-2.0); BASO % 0.2 % (0.0-3.0); GRAN # 20.57 (1.4-6.5); GRAN % 84.2 % (50.0-68.0); HEMOGLOBIN 13.9 g/dL (12.0-16.0); LYMPH # 2.4 (1.2-3.4); MEAN CELL VOLUME 91.6 fl (80.0-105.0); MEAN CORPUSCULAR HEMOGLOBIN 31.7 pg (25.0-35.0); MEAN CORPUSCULAR HGB CONC 34.6 g/dl (31.0-37.0); MEAN PLATELET VOLUME 11.3 fl (7.0-11.0); MONO # 1.4 (0.1-0.6); MONO % 5.6 % (1.0-6.0); RBC 4.39 10^6/uL (3.5-6.1); RED CELL DISTRIBUTION WIDTH 12.6 % (11.5-14.5); WHITE BLOOD COUNT 24.4 10^3/ul (4.5-11.0)
[2017-04-26 07:27] LABS: ALBUMIN 3.9 g/dL (3.0-4.8); ALT/SGPT 55 U/L (7-56); AST/SGOT 87 U/L (14-36); BLOOD UREA NITROGEN 20 mg/dL (7-21); CALCIUM 9.5 mg/dL (8.4-10.5); GFR AFRICAN-AMERICAN > 60; GFR NON-AFRICAN AMERICAN > 60; MAGNESIUM 2.2 mg/dL (1.7-2.2)
[2017-04-26] MEDS: Acetylcysteine 20% Inhal Soln (4ml) IH SCH ×2 (07:36→21:30)
[2017-04-26] MEDS: Albuterol-Ipratrop 3 mg / 0.5 (3 ml) UD IH SCH ×3 (07:36→21:30)
[2017-04-26 07:54] LABS: TROPONIN I 2.58 ng/mL
[2017-04-26] MEDS: Insulin Reg-MEDIUM-Coverage SC SCH ×4 (08:13→22:10)
[2017-04-26] MEDS: Insulin Detemir 100 units/ml Vial (Levemir) SC SCH ×2 (09:13→17:29)
--- NOTE | 2017-04-26 09:32 | PN ---
DATE: 04/25/2017 SUBJECTIVE: The patient noted that she has some dyspnea overnight. Her oxygen saturation was down to 90%. We gave her Ventimask and nebulizer treatment and improved. The patient denied any chest pain. She feel better, but she is requiring more oxygen and clinically seems stable, but needs more work. PHYSICAL EXAMINATION: VITAL SIGNS: At the time, temperature is 98.1, heart rate 78, blood pressure 138/88, saturating on 50% was 86. HEAD AND NECK: Normal. No JVD. No thyromegaly. CHEST: Clear. Good air entry. LUNGS: Reveals bilateral crepitations, both lungs. CARDIAC: First and second sound normal. ABDOMEN: Soft, obese, nontender. EXTREMITIES: No edema. NEUROLOGIC: Normal. LABORATORY DATA: Her laboratory study shows her white count 22,000, hemoglobin 13.9, hematocrit 40, platelets 104. Chemistry; blood sugar running in the 300s. IMPRESSION AND PLAN: 1. Acute respiratory distress secondary to multilobular community-acquired pneumonia. 2. The patient has high BNP which raise suspicion of the left ventricular dysfunction. Echocardiogram was done, which shows decreased [id number] left ventricular dysfunction global with eccentric, pybzhmmf-bf-[id number] mitral regurgitation, with based on my readings to the echo and we will see Dr. Denny, give Lasix and Cardiology, Dr. Harding, seen the patient. He put on a small dose beta-braulio, SHAWNA inhibitors and maintain Lasix. We will continue current therapy. We will follow up clinically. The patient will need further workup including cardiac catheterization, when she is stabilized more. 3. Diabetes. The patient has uncontrolled diabetes secondary to insulin. We will increase her insulin medications and we will follow up clinically. 4. Obesity, possible obstructive sleep apnea. The patient needs further workup as an outpatient. The patient had never seen a doctor for almost 5-10 years. She is unaware of diabetes or any medical problems, but at this time continue current therapy. We will monitor her pulmonary status, cardiac status closely. Luke Morgan MD
--- NOTE | 2017-04-26 10:02 | RAD ---
HISTORY: pneumonia COMPARISON: 04/22/2017 TECHNIQUE: Chest PA and lateral FINDINGS: LUNGS: There is an increasing diffuse infiltrate. This is consistent with pneumonia. Pulmonary edema can have a similar appearance PLEURA: No significant pleural effusion identified. No pneumothorax apparent. CARDIOVASCULAR: Mild cardiomegaly OSSEOUS STRUCTURES: No significant abnormalities. VISUALIZED UPPER ABDOMEN: Normal. OTHER FINDINGS: None. IMPRESSION: There is an increasing diffuse infiltrate. This is consistent with pneumonia. Pulmonary edema can have a similar appearance
[2017-04-26] MEDS ORDERED: Lidocaine 2% Inj (20ml) ONE (11:36)
[2017-04-26] MEDS ORDERED: HEPARIN SODIUM/NS 2,000 ML IV ONE (11:37)
[2017-04-26] MEDS ORDERED: Iodixanol 320 MG/ML 200 ML BOTTLE IV ONE (11:37)
[2017-04-26] MEDS ORDERED: Nitroglycerin 50mg in D5W 50 MG/250 ML BOTTLE IV ONE (11:37)
[2017-04-26] MEDS ORDERED: Phenylephrine 10 mg/ml Inj ONE (11:48)
[2017-04-26] MEDS ORDERED: Midazolam 2 MG/2 ML VIAL ONE (12:24)
--- NOTE | 2017-04-26 12:48 | CP.PCM.PN ---
Subjective - Date & Time of Evaluation Date of Evaluation: 04/26/17 Time of Evaluation: 11:10 - Subjective Subjective: Patient still has occasional shortness of breath but no fevers overnight, less cough. Objective - Vital Signs/Intake and Output Vital Signs (last 24 hours): Temp Pulse Resp BP Pulse Ox 97.8 F 127 H 22 126/89 86 L 04/26/17 08:15 04/26/17 09:12 04/26/17 08:15 04/26/17 09:13 04/25/17 16:00 Intake and Output: 04/26/17 04/26/17 06:59 18:59 Intake Total 1020 Balance 1020 - Medications Medications: Current Medications Acetaminophen (Tylenol 325mg Tab) 650 mg PO Q6H PRN PRN Reason: Fever >100.4 F Last Admin: 04/25/17 10:48 Dose: 650 mg Acetylcysteine (Acetylcysteine 20%) 3 ml IH BIDRESP [facility] Last Admin: 04/26/17 07:36 Dose: 3 ml Albuterol/Ipratropium (Duoneb 3 Mg/0.5 Mg (3 Ml) Ud) 3 ml IH QIDRESP [facility] Last Admin: 04/26/17 07:36 Dose: 3 ml Aspirin (Ecotrin) 81 mg PO DAILY [facility] Last Admin: 04/26/17 09:12 Dose: 81 mg Carvedilol (Coreg) 3.125 mg PO BID [facility] Last Admin: 04/26/17 09:12 Dose: 3.125 mg Enoxaparin Sodium (Lovenox) 40 mg SC DAILY [facility] PRN Reason: Protocol Last Admin: 04/25/17 10:39 Dose: 40 mg Furosemide (Lasix) 40 mg IV DAILY [facility] Last Admin: 04/26/17 09:13 Dose: 40 mg Ceftriaxone Sodium (Rocephin 1 Gram Ivpb) 1 gm in 100 mls @ 100 mls/hr IVPB 1600 [facility] PRN Reason: Protocol Last Admin: 04/25/17 16:53 Dose: 100 mls/hr Azithromycin (Zithromax 500mg In Ns) 500 mg in 250 mls @ 167 mls/hr IVPB 1700 [facility] PRN Reason: Protocol Last Admin: 04/25/17 17:38 Dose: 167 mls/hr Insulin Detemir (Levemir) 15 unit SC BID [facility] Last Admin: 04/26/17 09:13 Dose: Not Given Insulin Human Regular (Humulin R Med) 0 units SC ACHS [facility] PRN Reason: Protocol Last Admin: 04/26/17 08:13 Dose: Not Given Lisinopril (Zestril) 2.5 mg PO DAILY [facility] Last Admin: 04/26/17 09:12 Dose: 2.5 mg Metformin HCl (Glucophage) 500 mg PO BID [facility] Last Admin: 04/25/17 17:28 Dose: 500 mg Methylprednisolone (Solu-Medrol) 20 mg IVP Q8 [facility] Last Admin: 04/26/17 06:02 Dose: 20 mg Nicotine (Nicoderm Cq) 1 patch TD DAILY [facility] Last Admin: 04/26/17 09:13 Dose: Not Given Pantoprazole Sodium (Protonix Ec Tab) 40 mg PO 0600 [facility] Last Admin: 04/26/17 06:02 Dose: 40 mg Sitagliptin Phosphate (Januvia) 100 mg PO DAILY [facility] Last Admin: 04/26/17 09:12 Dose: 100 mg - Labs Labs: 04/26/17 06:00 04/26/17 06:00 PT 13.9 SECONDS (9.4-12.5) H 04/22/17 14:30 INR 1.27 (0.93-1.08) H 04/22/17 14:30 APTT 27.7 Seconds (25.1-36.5) 04/22/17 14:30 - Constitutional Appears: Non-toxic - Head Exam Head Exam: NORMAL INSPECTION - ENT Exam ENT Exam: Mucous Membranes Moist - Neck Exam Neck Exam: absent: Meningismus - Respiratory Exam Respiratory Exam: Decreased Breath Sounds - Cardiovascular Exam Cardiovascular Exam: +S1, +S2 - GI/Abdominal Exam GI & Abdominal Exam: Soft. absent: Tenderness Assessment and Plan - Assessment and Plan (Free Text) Plan: Assessment Sepsis due to bilateral community-acquired pneumonia COPD significant smoking history Plan Continue Rocephin and Zithromax to complete 5-7 days of therapy (Day 4 today) will continue to monitor clinically
[2017-04-26] MEDS ORDERED: Eptifibatide 20 mg/10mL Inj IVP ONE (12:51)
[2017-04-26] MEDS ORDERED: HEPARIN SODIUM/NS 1,000 ML IV ONE ×2 (13:19→13:53)
[2017-04-26] MEDS ORDERED: Eptifibatide 0.75 mg/ml 75 MG/100 ML BOTTLE IV ONE (13:19)
[2017-04-26] MEDS ORDERED: Albuterol-Ipratrop 3 mg / 0.5 (3 ml) UD IH PRN (13:32)
[2017-04-26] MEDS ORDERED: Iodixanol 320 mg/ml 150 ml Bottle IV ONE (13:47)
[2017-04-26] MEDS ORDERED: DOPamine 400mg/250ml D5W 400 MG/250 ML BAG IV ONE (14:42)
[2017-04-26] MEDS ORDERED: Heparin25000 units/250ml 1/2NS 25,000 UNITS/250 ML BAG IV ONE (15:05)
[2017-04-26] MEDS: Eptifibatide 0.75 mg/ml 75 MG/100 ML BOTTLE IV SCH ×2 (16:00→21:23)
[2017-04-26] MEDS ORDERED: Sodium Chloride 0.9% 1,000 ML IV SCH (16:00)
[2017-04-26] MEDS ORDERED: Heparin25000 units/250ml 1/2NS 25,000 UNITS/250 ML BAG IV SCH ×2 (16:00→23:15)
[2017-04-26 16:43] LABS: BASO # 0.05 K/mm3 (0.0-2.0); BASO % 0.2 % (0.0-3.0); GRAN # 18.3 (1.4-6.5); GRAN % 83.9 % (50.0-68.0); HEMOGLOBIN 12.6 g/dL (12.0-16.0); LYMPH # 2.4 (1.2-3.4); LYMPH % 11.1 % (22.0-35.0); MEAN CELL VOLUME 92.8 fl (80.0-105.0); MEAN CORPUSCULAR HEMOGLOBIN 31.4 pg (25.0-35.0); MEAN CORPUSCULAR HGB CONC 33.9 g/dl (31.0-37.0); MEAN PLATELET VOLUME 11.2 fl (7.0-11.0); MONO % 4.8 % (1.0-6.0); RBC 4.01 10^6/uL (3.5-6.1); RED CELL DISTRIBUTION WIDTH 12.6 % (11.5-14.5); WHITE BLOOD COUNT 21.8 10^3/ul (4.5-11.0)
[2017-04-26] MEDS: cefTRIAXone 1 gm 1 GM/100 ML BAG IVPB SCH (16:57)
[2017-04-26] MEDS: Azithromycin 500MG/NS 250ml 500 MG/250 ML BAG IVPB SCH (16:58)
[2017-04-26 17:05] LABS: BLOOD UREA NITROGEN 22 mg/dL (7-21); GFR AFRICAN-AMERICAN > 60; GFR NON-AFRICAN AMERICAN > 60
--- NOTE | 2017-04-26 17:52 | PN ---
DATE: 04/26/2017 REASON FOR CONSULTATION: Cardiac evaluation, abnormal EKG, elevated BNP, possible [id number] myocardial infarction, troponin 2.58. SUBJECTIVE: The patient is complaining of shortness of breath sitting. OBJECTIVE: Mild respiratory distress. PHYSICAL EXAMINATION: VITAL SIGNS: Temperature afebrile, heart rate 100, blood pressure 126/89. HEENT: PERRLA intact. NECK: Supple. No carotid bruit or thyromegaly. CHEST: Clear to auscultation. HEART: S1 and S2 regular. ABDOMEN: Soft. EXTREMITIES: Clubbing and cyanosis negative. LABORATORY DATA: Blood workup as follows: WBC 24.4, hemoglobin 13.9, hematocrit 40.2, platelet count 228. Chemistry shows sodium 130, potassium 4.5, chloride 99, carbon dioxide is 25, anion gap of 19, BUN 20, creatinine 0.6. IMPRESSION: A 57-year-old female with no significant past medical history admitted with pneumonia bilaterally , elevated BNP. This morning troponin is 2.6. Echo yesterday shows significantly decreased left ventricular function, ejection fraction 25% to 30%, severe mitral regurgitation, mild tricuspid regurgitation, right ventricular systolic pressure of 44. RECOMMENDATIONS: In view of progressively worsening shortness of breath, troponin positive, MR, will benefit with cardiac catheterization. Risks, benefits, and alternatives were discussed with the patient. The patient agreed to proceed for cardiac catheterization. We will give 300 mg of Plavix and load with aspirin. Further recommendation after the cardiac catheterization. We will follow with you. Thank you Dr. Morgan for providing us the opportunity in taking care of the patient, Shaila Alvarez. Louei Harding MD
--- NOTE | 2017-04-26 18:02 | PN ---
DATE: 04/26/2017 PULMONARY PROGRESS NOTE REFERRING PHYSICIAN: SUBJECTIVE: She is sitting up in bed on Venturi mask. Feels a little better than last night. Breathing is well improved. Still has a cough. No nausea, vomiting, diarrhea, leg pain, or leg swelling. OBJECTIVE: GENERAL: In no acute distress. VITAL SIGNS: Temperature is 98, heart rate is 120 to 127, respiratory rate is 20, blood pressure 126/89, and pulse ox is 90% on Venturi mask. HEENT: Moist mucous membranes. No ulcer or thrush noted. NECK: Supple. No JVD. LUNGS: Has a bilateral crackles and rhonchi. HEART: S1 and S2. ABDOMEN: Soft and nontender. No organomegaly. EXTREMITIES: There is no edema. NEUROLOGIC: Awake and alert. Follows simple commands. MEDICATIONS: Mucomyst 20% inhaled twice a day, Coreg 3.125 mg twice a day, DuoNeb q.i.d., Ecotrin 81 mg daily, metformin has been on hold, insulin coverage, Januvia 100 mg daily, Lasix 40 mg IV daily, Levemir 15 unit twice a day, Lovenox 40 mg daily, Nicoderm patch daily, Protonix 40 mg daily, Rocephin 1 gm daily, Solu-Medrol 20 mg q.8 hours, Tylenol p.r.n., Zestril 2.5 mg daily, and Zithromax 500 mg daily. LABORATORY DATA: Shows hemoglobin 13.9, hematocrit 40.2, WBC 24,000, and platelet is 228. Sodium 138, potassium 4.5, chloride 99, bicarbonate 25, BUN 20, creatinine 0.6, glucose is 251, calcium 9.5, phosphorus 4.0, magnesium 2.2, AST 87, ALT 55, alkaline phosphatase is 124, troponin is 2.58, albumin is 3.9. Microbiology, blood culture, urine culture, and sputum culture all are negative. Chest x-ray done this morning shows an increased diffuse infiltrate. IMPRESSION AND PLAN: Cardiomyopathy with pulmonary edema, also a component of chronic obstructive lung disease. The patient has negative procalcitonin. Scheduled for cardiac catheterization. Received diuretics and beta-braulio last night. We will decrease inhaled bronchodilator. Need EKG to assure there is no atrial fibrillation. Continue gastric prophylaxis and Cardiology follow up. Thank you and we will follow with you. Louie Denny MD
[2017-04-26 18:50] LABS: ARTERIAL BLOOD GAS O2 SAT 87.2 % (95-98); ARTERIAL BLOOD GAS PCO2 43 mm/Hg (35-45); ARTERIAL BLOOD GAS PH 7.39 (7.35-7.45); ARTERIAL BLOOD GAS TCO2 27.3 mmol.L (22-28)
[2017-04-26] MEDS ORDERED: NOREPINEPHRINE BIT/0.9 % NACL 4 MG/250 ML BAG IV PRN (19:21)
--- NOTE | 2017-04-26 19:41 | CARD ---
APPROVED REPORT Procedure(s) performed: Left Heart Catheterization IABP PTCA with Stenting of proximal and Distal RCA with LUIS ALBERTO PTCA with Stenting of proximal and Mid LAD with LUIS ALBERTO HISTORY 30%. (EF Method: Echocardiogram), chronic lung disease, tobacco history() : The patient is a current smoker . INDICATION The indication(s) include : non-STEMI , Cardiogenic Shock. CASE TECHNIQUE The left wrist was infiltrated with 2% Lidocaine subcutaneous anesthesia. A 6FR GLIDESHEATH ACCESS KIT sheath was inserted into the without difficulty. Coronary angiography was performed using coronary diagnostic catheters. The left coronary system was accessed and visualized with a Diagnostic ,5 Fr JL 4 catheter. The right coronary system was accessed and visualized with a Diagnostic ,5 Fr JR 4 catheter. The left ventricle was accessed and visualized with a 5 Fr Pigtail 145 (Angled) catheter. Left ventricular/Aortic Valve gradient assessed on pullback. Left ventriculogram was performed in MELARA projection. Closure device was deployed with a Fr TR Band (Regular) without any complications. The patient tolerated the procedure well and there were no complications associated with the procedure. Vessel Analysis The patient's coronary anatomy is right dominant. The left main coronary artery is a large size vessel without significant stenosis. The left main trifurcates to the left anterior descending, circumflex, and ramus. The left anterior descending artery is a large size vessel with diffuse calcification noted throughout this vessel and with significant stenosis. There is a 100% stenosis in the ostial segment. The circumflex artery is a medium size vessel with diffuse calcification noted throughout this vessel and with significant stenosis. There is a 99% stenosis in the distal segment. The first obtuse marginal branch is a medium size vessel with diffuse calcification noted throughout this vessel and without significant stenosis. The ramus intermedius artery is a medium size vessel with diffuse calcification noted throughout this vessel and without significant stenosis. The right coronary artery is a medium size vessel with diffuse calcification noted throughout this vessel and with significant stenosis. There is a 90% stenosis in the proximal segment. another 905stenosis in distal segment The right posterior descending artery is a medium size vessel with diffuse calcification noted throughout this vessel and without significant stenosis. Left Ventricle The left ventricle is moderately enlarged in size with moderately decreased contractility. The left ventricular ejection fraction is estimated to be 25%. PCI Technique Lesion Anticoagulation was achieved with Heparin. Percutaneous coronary intervention was performed on the distal right coronary artery. The lesion stenosis prior to intervention was 90% with FERNANDO 1 flow. A 6 Fr JR 3.5 Guide Catheter was used to engage the ostium. BALLOON DILATION A Balloon catheter 2.0 x 10 mm Sprinter RX was inserted and inflated up to 9.00atm for 13seconds. STENT DEPLOYMENT A drug-eluting stent 2.5 x 14 mm Resolute LUIS ALBERTO was inserted and inflated up to 12atm for 15seconds. Final angiography reveals 0 % stenosis with FERNANDO 3 flow. PCI Technique Lesion 2 Percutaneous Coronary Intervention was performed on the proximal right coronary artery. The lesion stenosis prior to intervention was 90% with FERNANDO 1 flow. A 6 Fr JR 3.5 Guide Catheter was used to engage the ostium. BALLOON DILATION A Balloon catheter 2.0 x 10 mm Sprinter RX was inserted and inflated up to 9.00atm for 9seconds. STENT DEPLOYMENT A drug-eluting stent 2.75 x 12 mm Resolute LUIS ALBERTO was inserted and inflated up to 14.00atm for 20seconds. Final angiography reveals 0 % stenosis with FERNANDO 3 flow. PCI Technique Lesion 3 Percutaneous Coronary Intervention was performed on the proximal left anterior descending artery segment. The lesion stenosis prior to intervention was 100% with FERNANDO 0 flow. A 6 Fr XB 3.5 Guide Catheter was used to engage the ostium. BALLOON DILATION A Balloon catheter 2.0 x 10 mm Sprinter RX was inserted and inflated up to 7.00atm for 18seconds. STENT DEPLOYMENT A drug-eluting stent 3.0 x 18 mm Resolute LUIS ALBERTO was inserted and inflated up to 14atm for 20seconds. POST STENT DEPLOYMENT BALLOON DILATION A Balloon catheter 3.5 x 12 mm Trek RX NC was inserted and inflated up to 14atm for 20seconds. Final angiography reveals 0 % stenosis with FERNANDO 3 flow. PCI Technique Lesion 4 Percutaneous Coronary Intervention was performed on the mid left anterior descending artery segment. The lesion stenosis prior to intervention was 95% with FERNANDO 0 flow. A 6 Fr XB 3.5 Guide Catheter was used to engage the ostium. BALLOON DILATION A Balloon catheter 2.0 x 10 mm Sprinter RX was inserted and inflated up to 8.00atm for 9seconds. STENT DEPLOYMENT A drug-eluting stent 2.75 x 26 mm Resolute LUIS ALBERTO was inserted and inflated up to 12atm for 20seconds. Final angiography reveals 0 % stenosis with FERNANDO 3 flow. Conclusion Severe triple Vessel CAD Cardiogenic Shock Successful PTCA with Luis Alberto Of LAD/RCA done Ideally Pt Could have gone for CABG but B/c Dayan Horvath and pt was melissa cardiogenic shock, opted to do Multivessel PTCA to save her life as a last ditch effort after putting her on IABP. during PTCA mechanoical failure of rn l and d room so rest of PTCA was done with Portale C arm. please see detailed dictated report. Recommendations Daily ASA with Plavix for at least one year Aggressive Medical Therapy Weight Loss Reduction Program continue IABP, integrellin, heparin, SHAWNA, Coreg Stage PTCA of Cx in 2-4 weeks as per clinical course. Please see detailed dictated report. CC; Dotty Robertson
--- NOTE | 2017-04-26 21:29 | PN ---
DATE: 04/26/2017 REASON FOR DICTATION: The patient underwent cardiac catheterization, found to be in cardiogenic shock, multivessel PTCA was done with intra-aortic balloon pump. After the catheterization, the patient was in shock and decreased LV function, systolic blood pressure was in the 80s, so intraaortic balloon pump was placed. Heavy snowing today, so unable to take the patient to [facility] for open heart surgery because of the road condition. We started to call the code STEMI and cardiogenic shock. In the view of the Cardiogenic shock, intra-aortic balloon pump was placed and multivessel angioplasty was done. Successfully PTCA with two drug-eluting stent and RCA was done, then LAD was total proximal, then rest of the PTCA was completed with C-arm portable. The patient tolerated the procedure well and returned to the floor in stable condition. PLAN: Plan is to continue intra-aortic balloon pump 24 to 48 hours depending upon the clinical situation. Continue IV heparin 1000 units an hour, continue Integrilin for 18 hours and then continue SHAWNA inhibitor, Coreg, clinical course. The patient made the PTCA of circumflex in a month. We will follow with you. Thank you Cathy for providing us the opportunity in taking care of the patient, Kim Linton. Louie Harding MD
[2017-04-26] MEDS: MethylPREDNISolone 40 mg Vial IVP SCH (22:11)
--- NOTE | 2017-04-27 00:28 | PN ---
DATE: 04/26/2017 SUBJECTIVE: The patient today had a cardiac cath, which showed triple vessel disease. Dr. Harding was able to do an LAD and right coronary with some improvement in her functions. She had a balloon angioplasty and four stents placed. 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 The patient was transferred to ICU for monitoring, stable. At this time, the patient had . PHYSICAL EXAMINATION: VITAL SIGNS: Temperature 97.6, heart rate 98, blood pressure 130/65, respiratory rate 25, saturating 94% on high flow. HEAD AND NECK: Normal. CHEST: Bilateral rales. CARDIAC: First and second sounds are normal. ABDOMEN: Soft and nontender. EXTREMITIES: No edema. NEUROLOGIC: Normal. LABORATORY DATA: White count is 24,400, hemoglobin 13.9, hematocrit 40.2, platelets 228. Chemistry: Sodium 138, potassium 4.5, chloride 99, bicarbonate 25, BUN 20, creatinine 0.6. Her calcium, phosphorus, magnesium is normal. Her blood sugar is running 200-300. IMPRESSION: 1. Acute congestive heart failure. Continue intravenous Lasix. We do not know how long the patient really does have the heart failure. Echocardiogram shows ischemic cardiomyopathy, ejection fraction 20%-30%. The patient also had severe mitral regurgitation. It was eccentric, although ischemic in nature, status post cardiac cath with angioplasty. We will keep the patient in intensive care unit till becomes more stabilized. 2. Bilateral pneumonia. Continue intravenous antibiotics. 3. Leukocytosis, probably steroid-related. 4. Diabetes, uncontrolled. Continue Levemir. Continue insulin coverage, moderate scale. We will hold on metformin. 5. Chronic obstructive pulmonary disease. Continue nebulizer treatment, Mucomyst. We will follow up with the manager content. CURRENT MEDICATIONS: Right now, she has Mucomyst, Altace 1.25 mg daily, Coreg 3.125 mg b.i.d., nebulizer treatment, DuoNeb, metformin on hold, heparin, was given insulin medium coverage, Integrilin 75 in 100 mL, continue infusion, Januvia 100 mg p.o. daily, Lasix 40 mg IV daily, Levemir 15 units b.i.d. The patient also had Levophed initially, but seems better now, Nicoderm one patch daily, Plavix 75 mg daily, Protonix 40 mg daily, Rocephin 1 g daily, IV fluids 50 mL per hour, Solu-Medrol 20 IV b.i.d., Tylenol, and Zithromax 500 IV daily. We will discontinue Zithromax. We will put doxycycline because of the associated cardiomyopathy. Continue current therapy. Thank you. Luke Morgan MD
[2017-04-27] MEDS: Albuterol-Ipratrop 3 mg / 0.5 (3 ml) UD IH SCH ×3 (02:57→20:20)
--- NOTE | 2017-04-27 05:02 | CARDCATH ---
PROCEDURE DATE: 04/25/2017 CARDIAC CATH LABORATORY/ANGIOPLASTY PROCEDURES PERFORMED: 1. Complete left heart catheterization from the left radial approach. 2. Intraaortic balloon pump, right femoral artery. 3. Percutaneous transluminal coronary angioplasty with 2 drug-eluting stents in the proximal and distal right coronary artery. 4. Percutaneous transluminal coronary angioplasty with drug-eluting stent of totally occluded left anterior descending artery, proximal and mid 2 drug-eluting stents. BRIEF CLINICAL HISTORY: This is a 57-year-old female, nonsmoker, admitted with bilateral pneumonia, very short of breath. Echo showed significantly decreased LV function, ejection fraction 25%. This morning, troponin showed 2.48, so the patient was decided to take to the labour market economist. While the patient was in the labour market economist, she remained more hypotensive and found to be multivessel coronary artery disease and the patient was in cardiogenic shock. Also, it is heavy snowing outside, 6-8 inches, and very dangerous travel condition, and emergency state was declared. So, in view of above, it was decided to call the code STEMI, and because the patient is in cardiogenic shock, an intraaortic balloon pump was placed and then multivessel angioplasty was performed. CARDIAC CATHETERIZATION FINDINGS: The patient was brought to the labour market economist, prepped and draped in standard sterile fashion. Left radial approach was done, and with a Seldinger technique, a 6-Yakut arterial sheath was placed. Then left and right Beth catheter and pigtail catheter used for coronary angiography with findings as follows: Left main essentially free of significant disease. Trifurcating LAD circumflex and ramus intermedius. LAD is proximally totally occluded at the ostium and circumflex was very distally occluded, ramus intermedius, moderate caliber vessel, diffuse disease. Right coronary artery, dominant vessels, ostium, proximal, and 90% stenosis. Distally 90% stenosis noted. LV gram showed a large ventricle with ejection fraction 25%. Aortic pressure 80/60, LV 80/20. In view of the severely decreased LV function and triple vessel disease, open heart surgery was recommended. But because of heavy snow outside and a very dangerous traveling condition, the State of emergency, since the patient was in cardiogenic shock, decided to call the code STEMI, and intraaortic balloon was placed and then multivessel angioplasty was performed. First, RCA was handled; first 2500 units heparin was given at the beginning after the access of the left radial. Then 2000 more heparin was given. ACT was found to be 212 seconds. Then PTCA was done with RCA, and Beth right catheter was taken to engage the RCA and lesion was crossed with loose wire. 2.0 x 10 balloon was taken, and inflation was done at proximal and distal. After the patient dropped to 60, Yoandy-Synephrine was given and 2 drug-eluting stents were placed; distal 2.5 x 14 mm TOMASA and proximal 2.75 mm stent, and 12-mm in length was done. After that, LAD was handled and lesion crossed with loose wire in the diagonal, and then with [id number] balloon, injection was done, found to the LAD, and then LAD was crossed. Then, suction catheter was used to suck the blood clot. At that time, the camera broke and then the rest of the PTCA was done with the portable C-arm. Then 2.5 mm balloon, 15 mm in length multiple inflations were done in the LAD, and then a 2.75 mm x 26 mm stent was taken and deployed in mid-LAD, and another stent 3 mm in length and 15 mm was taken and deployed in the proximal ostial LAD. Then post coronary dilatation, 3.5 mm catheter was taken and inflated at 18 atmosphere with reduction of the stenosis from 100% to 0. FINDINGS: As follows: Pre-procedure RCA was 90% proximal, distal 90% with FERNANDO 1-2 flow. Postprocedure, reduction of stenosis to 0%, both proximal and distal, with FERNANDO-3 flow. Pre-procedure LAD, 100% stenosis, zero flow. Postprocedure, no residual stenosis, 0% stenosis, and FERNANDO-3 flow noted. The patient tolerated the procedure well, returned to floor in stable condition. PLAN: Plan is to continue intraaortic balloon pump for 24-48 hours. Continue Integrilin for 18 hours. Continue heparin until the patient's balloon pump, start SHAWNA inhibitor, Coreg, Lasix, and monitor closely. The patient may need PTCA of circumflex in [address] Morgan for providing us the opportunity in taking care of the patient, Kim Linton. Louie Harding MD cc: Luke Morgan MD [id number]
[2017-04-27] MEDS: Eptifibatide 0.75 mg/ml 75 MG/100 ML BOTTLE IV SCH (05:06)
[2017-04-27 07:05] LABS: HEMOGLOBIN 12.1 g/dL (12.0-16.0); MEAN CELL VOLUME 93.1 fl (80.0-105.0); MEAN CORPUSCULAR HEMOGLOBIN 31.1 pg (25.0-35.0); MEAN CORPUSCULAR HGB CONC 33.4 g/dl (31.0-37.0); MEAN PLATELET VOLUME 11.5 fl (7.0-11.0); RBC 3.89 10^6/uL (3.5-6.1); RED CELL DISTRIBUTION WIDTH 12.8 % (11.5-14.5); WHITE BLOOD COUNT 16.4 10^3/ul (4.5-11.0)
[2017-04-27 07:43] LABS: ALBUMIN 3.2 g/dL (3.0-4.8); ALT/SGPT 78 U/L (7-56); AST/SGOT 117 U/L (14-36); BLOOD UREA NITROGEN 23 mg/dL (7-21); CALCIUM 8.6 mg/dL (8.4-10.5); GFR AFRICAN-AMERICAN > 60; GFR NON-AFRICAN AMERICAN > 60; MAGNESIUM 2.1 mg/dL (1.7-2.2)
[2017-04-27] MEDS: Insulin Reg-MEDIUM-Coverage SC SCH ×4 (08:23→22:25)
[2017-04-27] MEDS: Acetylcysteine 20% Inhal Soln (4ml) IH SCH ×2 (09:00→20:19)
[2017-04-27] MEDS: Insulin Detemir 100 units/ml Vial (Levemir) SC SCH ×2 (09:53→18:26)
[2017-04-27] MEDS: Pantoprazole 40 mg EC Tab PO SCH (09:55)
[2017-04-27] MEDS: MethylPREDNISolone 40 mg Vial IVP SCH ×2 (09:56→22:37)
[2017-04-27 09:58] LABS: TROPONIN I 12.7 ng/mL
--- NOTE | 2017-04-27 09:59 | CARD ---
APPROVED REPORT EKG Measurement Heart [id number] <Conclusion> Normal sinus rhythm Nonspecific ST and T wave abnormality Prolonged QT Abnormal ECG
[2017-04-27 10:34] LABS: CK-MB 36.2 ng/mL (0.0-3.6)
--- NOTE | 2017-04-27 11:10 | CP.PCM.PN ---
Subjective - Date & Time of Evaluation Date of Evaluation: 04/27/17 Time of Evaluation: 10:20 - Subjective Subjective: Patient underwent cardiac cath yesterday with balloon angioplasty, no fevers overnight, breathing better. Objective - Vital Signs/Intake and Output Vital Signs (last 24 hours): Temp Pulse Resp BP Pulse Ox 98 F 79 20 136/60 95 04/26/17 23:00 04/27/17 09:51 04/27/17 06:00 04/27/17 09:52 04/27/17 06:00 Intake and Output: 04/27/17 04/27/17 06:59 18:59 Intake Total 1026 Output Total 1999 Balance -974 - Medications Medications: Current Medications Acetaminophen (Tylenol 325mg Tab) 650 mg PO Q6H PRN PRN Reason: Fever >100.4 F Last Admin: 04/25/17 10:48 Dose: 650 mg Acetylcysteine (Acetylcysteine 20%) 4 ml IH Q12 [facility] Last Admin: 04/26/17 21:30 Dose: 4 ml Albuterol/Ipratropium (Duoneb 3 Mg/0.5 Mg (3 Ml) Ud) 3 ml IH [id number] [facility] Last Admin: 04/27/17 02:57 Dose: 3 ml Albuterol/Ipratropium (Duoneb 3 Mg/0.5 Mg (3 Ml) Ud) 3 ml IH Q2H PRN PRN Reason: Shortness of Breath Aspirin (Ecotrin) 81 mg PO DAILY [facility] Last Admin: 04/27/17 09:51 Dose: 81 mg Atorvastatin Calcium (Lipitor) 80 mg PO DIN [facility] Carvedilol (Coreg) 3.125 mg PO BID [facility] Last Admin: 04/27/17 09:51 Dose: 3.125 mg Clopidogrel Bisulfate (Plavix) 75 mg PO DAILY [facility] Last Admin: 04/27/17 09:54 Dose: 75 mg Furosemide (Lasix) 40 mg IV DAILY [facility] Last Admin: 04/27/17 09:52 Dose: 40 mg Ceftriaxone Sodium (Rocephin 1 Gram Ivpb) 1 gm in 100 mls @ 100 mls/hr IVPB 1600 GADIEL PRN Reason: Protocol Last Admin: 04/26/17 16:57 Dose: 100 mls/hr Eptifibatide (Integrilin) 75 mg in 100 mls @ 12.338 mls/hr IV .Q8H7M GADIEL; 2 MCG /KG/MIN PRN Reason: Protocol Stop: 04/27/17 11:00 Last Admin: 04/27/17 05:06 Dose: 12.338 mls/hr NOREPINEPHRINE BIT/0.9 % NACL (Levophed 4 Mg/ 250 Ml Ns Premixed) 4 mg in 250 mls @ 15 mls/hr IV .[id number] PRN; Protocol; 4 MCG/MIN PRN Reason: TITRATE PER MD ORDER Doxycycline Hyclate 100 mg/ (Sodium Chloride) 100 mls @ 100 mls/hr IVPB Q12 GADIEL PRN Reason: Protocol Last Admin: 04/27/17 09:59 Dose: 100 mls/hr Heparin Sodium/Sodium Chloride (Heparin 44694 Units/250ml 1/2 Normal Saline) 25 ,000 units in 250 mls @ 9.253 mls/hr IV .Q24H GADIEL; 12 UNITS/KG/HR PRN Reason: Protocol Last Admin: 04/26/17 23:13 Dose: 14.97 units/kg/hr, 11.544 mls/hr Insulin Detemir (Levemir) 15 unit SC BID [facility] Last Admin: 04/27/17 09:53 Dose: 15 unit Insulin Human Regular (Humulin R Med) 0 units SC ACHS GADIEL PRN Reason: Protocol Last Admin: 04/27/17 08:23 Dose: 3 units Metformin HCl (Glucophage) 500 mg PO BID [facility] Last Admin: 04/25/17 17:28 Dose: 500 mg Methylprednisolone (Solu-Medrol) 20 mg IVP Q12 [facility] Last Admin: 04/27/17 09:56 Dose: 20 mg Nicotine (Nicoderm Cq) 1 patch TD DAILY [facility] Last Admin: 04/27/17 09:54 Dose: 1 patch Pantoprazole Sodium (Protonix Ec Tab) 40 mg PO 0600 [facility] Last Admin: 04/27/17 09:55 Dose: 40 mg Ramipril (Altace) 1.25 mg PO DAILY [facility] Sitagliptin Phosphate (Januvia) 100 mg PO DAILY [facility] Last Admin: 04/27/17 09:52 Dose: 100 mg - Labs Labs: 04/27/17 06:30 04/27/17 06:30 PT 13.9 SECONDS (9.4-12.5) H 04/22/17 14:30 INR 1.27 (0.93-1.08) H 04/22/17 14:30 APTT 44.7 Seconds (25.1-36.5) H 04/27/17 06:30 - Constitutional Appears: Chronically Ill - Head Exam Head Exam: NORMAL INSPECTION - ENT Exam ENT Exam: Mucous Membranes Moist - Neck Exam Neck Exam: absent: Meningismus - Respiratory Exam Respiratory Exam: Decreased Breath Sounds - Cardiovascular Exam Cardiovascular Exam: +S1, +S2 - GI/Abdominal Exam GI & Abdominal Exam: Soft. absent: Tenderness Assessment and Plan - Assessment and Plan (Free Text) Plan: Assessment Sepsis due to bilateral community-acquired pneumonia NSTEMI with CAD S/P PCI x 4 yesterday with intra-aortic balloon pump placement COPD significant smoking history Plan Continue Rocephin and Zithromax to complete 5-7 days of therapy (Day 5 today) will continue to monitor clinically follow up further recommendations of Cardiology
--- NOTE | 2017-04-27 13:25 | RAD ---
HISTORY: IABP check COMPARISON: 04/26/2017 FINDINGS: LUNGS: Interstitial congestion slightly improved PLEURA: No significant pleural effusion identified, no pneumothorax apparent. CARDIOVASCULAR: Mild cardiomegaly. The balloon tipped marker is seen just beneath the aortic arch. There are multiple overlying EKG leads. OSSEOUS STRUCTURES: No significant abnormalities. VISUALIZED UPPER ABDOMEN: Normal. OTHER FINDINGS: None. IMPRESSION: Mild cardiomegaly. The balloon tipped marker is seen just beneath the aortic arch. There are multiple overlying EKG leads.
[2017-04-27] MEDS ORDERED: Heparin25000 units/250ml 1/2NS 25,000 UNITS/250 ML BAG IV SCH (13:36)
--- NOTE | 2017-04-27 14:07 | PN ---
DATE: 04/27/2017 REASON FOR CONSULTATION AND FOLLOWUP: Bilateral pneumonia, non-STEMI, cardiogenic shock, multivessel PTCA. SUBJECTIVE: The patient denies any chest pain, feels a lot better, lying flat in the bed. Intraaortic balloon pump in place, on IV Integrilin, IV heparin and IV fluid. OBJECTIVE: GENERAL: Not in apparent distress, lying flat in the bed. VITAL SIGNS: As follows; temperature is afebrile, heart rate 70, and blood pressure 129/85. HEENT: PERRLA. Extraocular muscles intact. NECK: Supple. No carotid bruits or thyromegaly. CHEST: Clear to auscultation. HEART: S1 and S2, regular. ABDOMEN: Soft. EXTREMITIES: Clubbing and cyanosis negative. LABORATORY DATA: Blood workup as follows; WBC 16.4, hemoglobin 12.8, hematocrit 36.2, platelet count 200. Chemistry shows sodium 140, potassium 4.2, chloride 102, carbon dioxide 29, anion gap of 13, BUN of 23, and creatinine 0.5. Total protein 6.2, albumin 3.2, and albumin-globulin ratio 1. IMPRESSION: Poorly controlled diabetes, hyperlipidemia, hypertension, severe cardiomyopathy, ischemic triple vessel disease, status post cardiogenic shock, status post multivessel angioplasty of left anterior descending and right coronary artery, on intraaortic balloon pump. RECOMMENDATION: Continue balloon pump for next 24 to 48 hours depend upon the clinical situation. Continue heart failure therapy including SHAWNA inhibitors, Coreg, aspirin, Plavix, resume back metformin, broad spectrum antibiotics as per ID and Pulmonary. Continue gentle diuretics. Monitored strictly I's and O's. Integrilin to be finished at 11 a.m., then continue heparin for next 24 hours until the patient is on balloon pump. Continue gentle hydration, supplement electrolytes and monitor closely. We will follow with you. We will give high doses of atorvastatin. Overall, the patient's condition is critical. Prognosis is guarded, but trend of the patient improving significantly high, and the patient appears much better after the revascularization. We will follow with you. We will get ECG. Thank you Dr. Morgan for providing us the opportunity in taking care of the patient, Kim Linton. Louie Harding MD [facility] # [id number]
--- NOTE | 2017-04-27 15:14 | PN ---
DATE: 04/27/2017 SUBJECTIVE: The patient is seen and examined at bedside. She is comfortable. She talks in full sentences. She is not in respiratory or otherwise distress. She is on high-flow with FiO2 of 50% and f per minute flow with oxygen saturation 91%. She reports that her shortness of breath has substantially improved. OBJECTIVE: VITAL SIGNS: Heart rate 86, respiratory rate 28, oxygen saturation 91% to 93% on high flow oxygen, and blood pressure 132/102. ENT: Head and neck atraumatic. LUNGS: Clear to auscultation bilaterally. Few crackles bilaterally. HEART: Regular rate and rhythm. S1 and S2 normal. ABDOMEN: Soft, nontender, and nondistended. MUSCULOSKELETAL: Trace bilateral pedal and ankle edema. There is a 2+ palpable pulse on DP on the left side and 1+ palpable pulse on DP on the right side. There is no expanding hematoma in the groin area where at the site of balloon pump. There is mild oozing. Both lower extremities/feet are warm. No paresthesia. No neurological deficit. SKIN: Moist. PSYCHIATRIC: The patient is alert and oriented x3. LABORATORY DATA: WBC 16.4, hemoglobin 12.1, and platelet count 200. Sodium 140, potassium 4.2, chloride 102, carbon dioxide 29, BUN 23, creatinine 0.5, glucose 228, AST 117, ALT 78, and total bilirubin 0.8. PTT 44.7. MEDICATIONS: Tylenol p.r.n., acetylcysteine, albuterol/ipratropium p.r.n., DuoNeb every 6 hours, Xanax 0.5 mg p.o. at bedtime p.r.n., aspirin, Lipitor, Coreg, Plavix, doxycycline, Lasix 40 mg IV daily, heparin drip, Levemir, Solu-Medrol 20 mg IV q.12 hours, nicotine patch, Protonix, ramipril, and Januvia. Chest x-ray is pending. ASSESSMENT AND PLAN: This is a 57-year-old lady who presented to ICU with cardiogenic shock, which appears to be resolved now. At present time, the patient is hemodynamically and respiratory marvin stable. Intra-aortic balloon pump hopefully will be removed tomorrow morning as per Cardiology Service. She does not require any medicamentose ionotropic support. We will continue with conservative fluid management with gentle diuresis. We will continue with afterload reduction with SHAWNA inhibitors. The patient is on aspirin, Plavix, therapeutic anticoagulation with heparin and beta-blockers. We will continue to target euvolemia, euglycemia, normothermia and oxygen saturation more than 90%. We will continue with GI prophylaxis. ccm time 40 min Easton Pantoja MD [facility]
--- NOTE | 2017-04-27 15:39 | CARD ---
APPROVED REPORT EKG Measurement Heart [id number] <Conclusion> Sinus tachycardia Cannot rule out Inferior infarct, age undetermined T wave abnormality, consider anterior ischemia Abnormal ECG
[2017-04-27] MEDS: cefTRIAXone 1 gm 1 GM/100 ML BAG IVPB SCH (18:29)
--- NOTE | 2017-04-27 19:08 | PN ---
DATE: 04/27/2017 REFERRING PHYSICIAN: Luke Morgan MD. SUBJECTIVE: She is lying in the bed, has a right lower extremity approach of intraaortic balloon. Yesterday events noted, had a cardiac cath, multivessel disease requiring multiple stents. Feels better, she is on high-flow nasal cannula oxygen in the Intensive Care Unit, not much cough, no sputum production. No nausea. No vomiting. No diarrhea. PHYSICAL EXAMINATION: GENERAL: No acute distress. VITAL SIGNS: Temperature is 98, heart rate is 86, respiratory rate is 28, blood pressure 116/46, pulse 73% on high-flow nasal cannula. HEENT: Moist mucous membranes. Crowded airway. Mallampati score is IV. NECK: Supple. No JVD. LUNGS: Have bilateral crackles. HEART: S1 and S2. ABDOMEN: Soft and nontender. No organomegaly. EXTREMITIES: No edema. NEUROLOGIC: Awake and alert. Follow simple commands. MEDICATIONS: She is on Mucomyst 4 mL q. 12 hours, Altace 1.25 mg daily, Coreg 3.125 mg twice a day, doxycycline 100 mg twice a day, DuoNeb q.6 hours, Ecotrin 81 mg daily, metformin 500 mg twice a day, IV heparin weight-based protocol, Januvia 100 mg daily, Lasix 40 mg daily, Levemir 50 units subcu twice a day, she is on Levophed, Lipitor 80 mg daily, Nicoderm patch daily, Plavix 75 mg daily, Protonix 40 mg daily, Rocephin 1 g IV daily, Solu-Medrol 20 mg q. 12 hours, Tylenol p.r.n., Xanax 0.5 mg at bedtime p.r.n. LABORATORY DATA: Shows hemoglobin 12.1, hematocrit 36.2, WBC 16.4, and platelet is 200. PTT is 45. Sodium 140, potassium 4.2, chloride 102, bicarbonate 29, BUN 23, creatinine 0.5, glucose 228, calcium 8.6, magnesium 2.1, AST is 117, ALT 78, alkaline phosphatase is 104, LDH is 3139, troponin 12.7. Chest x-ray done today shows cardiomegaly, intraaortic balloon tip brandie is seen just beneath the aortic arch. IMPRESSION AND PLAN: Chronic obstructive lung disease, diffuse pulmonary infiltrate, multivessel coronary artery disease, cardiomyopathy, status post multiple coronary stents, has intraaortic balloon pump at present time, respiratory failure requiring high-flow nasal cannula oxygen. Case discussed with the patient and family at bedside. All the questions answered. Continue p.o. IV, and inhaled bronchodilator. Continue high-flow oxygen, anticoagulation, antiplatelet. Cardiology followup. Critical care time more than 35 minutes. Thank you and we will follow with you. Louie Denny MD
--- NOTE | 2017-04-27 22:32 | CON ---
DATE: 04/26/2017 HISTORY OF PRESENT ILLNESS: This is a 57-year-old lady, who initially presented to [facility] on 04/22/2017 with complaints suggestive of community-acquired pneumonia. The patient had shortness of breath, infiltrate on CAT scan and chest x-ray, and was treated accordingly. At some point, echocardiogram was done which revealed moderate left ventricular systolic function and despite initial negative troponin, subsequent cardiac workup revealed acute TX when the second troponin came back elevated. The patient had coronary angiography/PCI performed on 04/26 which revealed atherosclerotic coronary disease necessitating stent placement which was done. Unfortunately, during the procedure, the patient developed cardiogenic shock and intraaortic balloon pump had to be placed. The patient regained hemodynamic stability and was transferred to ICU for further management and monitoring while on therapeutic anticoagulation with heparin and Integrilin. No fever. No chills. No sweats. No nausea. No vomiting. No diarrhea. No constipation. PAST MEDICAL HISTORY: Coronary artery disease, left ventricular systolic dysfunction. ALLERGIES: NKDA. FAMILY HISTORY: Noncontributory. SOCIAL HISTORY: The patient is active smoker and has been smoking for years. No alcohol or illicit drug abuse. REVIEW OF SYSTEMS: Review of 12-organ system other than mentioned in history of present illness is negative. PHYSICAL EXAMINATION: VITAL SIGNS: Heart rate 100, blood pressure 139/76, respiratory rate 30, and oxygen saturation 93% on partial nonrebreather. HEENT: Head and neck atraumatic. LUNGS: Few crackles bilaterally. HEART: Regular rate and rhythm. S1, S2 normal. ABDOMEN: Soft, nontender, nondistended. MUSCULOSKELETAL: Trace bilateral pedal and ankle edema. Both lower extremities are warm without paresthesia, without neurological deficit. 2+ palpable pulses on both DPA. SKIN: Moist. PSYCH: The patient is alert and oriented x3. LABORATORY DATA: Sodium 138, potassium 4.6, chloride 104, carbon dioxide 25, BUN 22, creatinine 0.5, glucose 249. WBC 21.8, hemoglobin 12.6, platelet count 215. MEDICATIONS: Mucomyst, DuoNeb every 6 hours, aspirin, Lipitor, Coreg, Plavix, doxycycline, Lasix, heparin drip, Levemir 15 units subcu b.i.d., Solu-Medrol 20 mg IV q.12, Protonix, ramipril, ceftriaxone, Januvia. ASSESSMENT AND PLAN: This is a 57-year-old lady, who presented to ICU with cardiogenic shock, status post intraaortic balloon pump, percutaneous coronary intervention with 2 stents placed. At the present time, the patient is alert, awake, oriented. She is hemodynamically stable. No avert complications related to aortic balloon pump. The patient is continued to be on antibiotics, low-dose steroids and bronchodilator. We will try high-flow oxygen to maintain oxygen saturation more than 92%. We will continue with conservative fluid and oxygen management. We will continue with deep venous thrombosis prophylaxis. The patient will be on Integrilin and therapeutic anticoagulation with heparin. We will continue with aspirin, Plavix,beta-braulio, statins. We will continue with n.p.o. for now, gastrointestinal prophylaxis. Integrilin will be weaned off within 18 hours. Balloon pump will be weaned off within in a day or two, the present time is one to one. ccm time 40 min Easton Pantoja MD [facility]
[2017-04-28] MEDS: Albuterol-Ipratrop 3 mg / 0.5 (3 ml) UD IH SCH ×5 (01:27→20:15)
--- NOTE | 2017-04-28 03:53 | PN ---
DATE: SUBJECTIVE: The patient in ICU, comfortable. She has still has a balloon pump. Blood pressure is stable. No respiratory distress. PHYSICAL EXAMINATION: VITAL SIGNS: Temperature 98, heart rate 86, blood pressure 116/46, and respirations 20, saturating 96%. HEAD AND NECK: Normal. No JVD. CHEST: Few crackles in the base. CARDIAC: First sound and second sound normal. Balloon pump sounding. ABDOMEN: Soft, nontender. EXTREMITIES: No edema. NEUROLOGIC: Normal. LABORATORY DATA: White count 16.4, hemoglobin 12.1, hematocrit 36.2, platelets 200. Chemistry noted for sodium 140, potassium 4.2, chloride 102, bicarb 29. BUN 23, creatinine 0.5, blood sugar 228. Liver enzymes normal. AST is 117, ALT 78. Patient also had troponin, which is elevated 2.5 and then 12.7. IMPRESSION AND PLAN: 1. Bilateral multilobar pneumonia, upper and lower lobes. Continue intravenous therapy. Continue doxycycline intravenous and Rocephin intravenous also for pneumonia, 1 g intravenous daily. 2. Chronic obstructive pulmonary disease, history of smoking. Continue Solu-Medrol, inhaled bronchodilator. 3. Status post cardiac catheterization. Patient has a Code Heart. Patient had balloon pump inserted in two vessels according to Dr. Harding done with four stents. Patient has also positive troponin. Continue current therapy. Follow up clinically. 4. Diabetes type 2. Continue Levemir, continue Januvia. Patient has new-onset diabetes. We will monitor her clinically. She got diabetic education. She is probably going to need more followup on the diabetes and all other medical conditions. Here hemoglobin A1c 10.5. 5. Continue current therapy. Continue intravenous heparin, aspirin. Probably, she will be off the pump. Her blood pressure seems stable. Patient clinically seems stable. Luke Morgan MD
[2017-04-28 05:23] LABS: BASO # 0.02 K/mm3 (0.0-2.0); BASO % 0.1 % (0.0-3.0); EOS # 0.2 (0.0-0.7); EOS % 1.3 % (1.5-5.0); GRAN # 13.68 (1.4-6.5); GRAN % 79.7 % (50.0-68.0); HEMOGLOBIN 12.5 g/dL (12.0-16.0); LYMPH # 2.7 (1.2-3.4); LYMPH % 15.8 % (22.0-35.0); MEAN CELL VOLUME 94.6 fl (80.0-105.0); MEAN CORPUSCULAR HEMOGLOBIN 30.7 pg (25.0-35.0); MEAN CORPUSCULAR HGB CONC 32.5 g/dl (31.0-37.0); MEAN PLATELET VOLUME 12.3 fl (7.0-11.0); MONO # 0.5 (0.1-0.6); MONO % 3.1 % (1.0-6.0); RBC 4.07 10^6/uL (3.5-6.1); RED CELL DISTRIBUTION WIDTH 12.8 % (11.5-14.5); WHITE BLOOD COUNT 17.2 10^3/ul (4.5-11.0)
[2017-04-28 06:19] LABS: ALB/GLOB RATIO 0.9 (1.1-1.8); ALBUMIN 3.3 g/dL (3.0-4.8); ALT/SGPT 69 U/L (7-56); AST/SGOT 67 U/L (14-36); BLOOD UREA NITROGEN 17 mg/dL (7-21); CALCIUM 9.2 mg/dL (8.4-10.5); GFR AFRICAN-AMERICAN > 60; GFR NON-AFRICAN AMERICAN > 60; MAGNESIUM 2.2 mg/dL (1.7-2.2); TROPONIN I 6.54 ng/mL
[2017-04-28] MEDS: Pantoprazole 40 mg EC Tab PO SCH (06:30)
[2017-04-28 07:02] LABS: CK MB% 2.5 % (2.5-3.0); CK-MB 13.9 ng/mL (0.0-3.6)
[2017-04-28] MEDS: Acetylcysteine 20% Inhal Soln (4ml) IH SCH ×2 (08:31→20:15)
[2017-04-28] MEDS: MethylPREDNISolone 40 mg Vial IVP SCH ×2 (10:41→23:00)
[2017-04-28] MEDS: Insulin Detemir 100 units/ml Vial (Levemir) SC SCH ×2 (10:46→17:51)
[2017-04-28] MEDS: Insulin Reg-MEDIUM-Coverage SC SCH ×4 (10:54→22:59)
--- NOTE | 2017-04-28 11:08 | CP.PCM.PN ---
Subjective - Date & Time of Evaluation Date of Evaluation: 04/28/17 Time of Evaluation: 10:10 - Subjective Subjective: Comfortable in bed, no fevers overnight, still with IABP but will be removed today. Objective - Vital Signs/Intake and Output Vital Signs (last 24 hours): Temp Pulse Resp BP Pulse Ox 98.3 F 75 20 126/46 L 96 04/28/17 00:00 04/28/17 05:00 04/28/17 05:00 04/28/17 05:00 04/28/17 05:00 - Medications Medications: Current Medications Acetaminophen (Tylenol 325mg Tab) 650 mg PO Q6H PRN PRN Reason: Fever >100.4 F Last Admin: 04/25/17 10:48 Dose: 650 mg Acetylcysteine (Acetylcysteine 20%) 4 ml IH Q12 ON LICENSE OF [facility] Last Admin: 04/27/17 20:19 Dose: 4 ml Albuterol/Ipratropium (Duoneb 3 Mg/0.5 Mg (3 Ml) Ud) 3 ml IH [id number] ON LICENSE OF [facility] Last Admin: 04/28/17 01:27 Dose: 3 ml Albuterol/Ipratropium (Duoneb 3 Mg/0.5 Mg (3 Ml) Ud) 3 ml IH Q2H PRN PRN Reason: Shortness of Breath Alprazolam (Xanax) 0.5 mg PO HS PRN; Protocol PRN Reason: Anxiety Aspirin (Ecotrin) 81 mg PO DAILY ON LICENSE OF [facility] Last Admin: 04/27/17 09:51 Dose: 81 mg Atorvastatin Calcium (Lipitor) 80 mg PO DIN ON LICENSE OF [facility] Last Admin: 04/27/17 18:28 Dose: 80 mg Carvedilol (Coreg) 3.125 mg PO BID ON LICENSE OF [facility] Last Admin: 04/27/17 18:27 Dose: 3.125 mg Clopidogrel Bisulfate (Plavix) 75 mg PO DAILY ON LICENSE OF [facility] Last Admin: 04/27/17 09:54 Dose: 75 mg Furosemide (Lasix) 40 mg IV DAILY ON LICENSE OF [facility] Last Admin: 04/27/17 09:52 Dose: 40 mg Ceftriaxone Sodium (Rocephin 1 Gram Ivpb) 1 gm in 100 mls @ 100 mls/hr IVPB 1600 GADIEL PRN Reason: Protocol Last Admin: 04/27/17 18:29 Dose: 100 mls/hr NOREPINEPHRINE BIT/0.9 % NACL (Levophed 4 Mg/ 250 Ml Ns Premixed) 4 mg in 250 mls @ 15 mls/hr IV .[id number] PRN; Protocol; 4 MCG/MIN PRN Reason: TITRATE PER MD ORDER Doxycycline Hyclate 100 mg/ (Sodium Chloride) 100 mls @ 100 mls/hr IVPB Q12 GADIEL PRN Reason: Protocol Last Admin: 04/27/17 22:45 Dose: 100 mls/hr Heparin Sodium/Sodium Chloride (Heparin 51596 Units/250ml 1/2 Normal Saline) 25 ,000 units in 250 mls @ 12.338 mls/hr IV .[id number] GADIEL; 16 UNITS/KG/HR PRN Reason: Protocol Last Admin: 04/27/17 13:50 Dose: 16 units/kg/hr, 12.338 mls/hr Insulin Detemir (Levemir) 15 unit SC BID ON LICENSE OF [facility] Last Admin: 04/27/17 18:26 Dose: 15 unit Insulin Human Regular (Humulin R Med) 0 units SC ACHS GADIEL PRN Reason: Protocol Last Admin: 04/27/17 22:25 Dose: Not Given Metformin HCl (Glucophage) 500 mg PO BID ON LICENSE OF [facility] Last Admin: 04/25/17 17:28 Dose: 500 mg Methylprednisolone (Solu-Medrol) 20 mg IVP Q12 ON LICENSE OF [facility] Last Admin: 04/27/17 22:37 Dose: 20 mg Nicotine (Nicoderm Cq) 1 patch TD DAILY ON LICENSE OF [facility] Last Admin: 04/27/17 09:54 Dose: 1 patch Pantoprazole Sodium (Protonix Ec Tab) 40 mg PO 0600 ON LICENSE OF [facility] Last Admin: 04/28/17 06:30 Dose: 40 mg Ramipril (Altace) 1.25 mg PO DAILY ON LICENSE OF [facility] Last Admin: 04/27/17 12:25 Dose: 1.25 mg Sitagliptin Phosphate (Januvia) 100 mg PO DAILY ON LICENSE OF [facility] Last Admin: 04/27/17 09:52 Dose: 100 mg - Labs Labs: 04/28/17 05:00 04/28/17 05:00 PT 13.9 SECONDS (9.4-12.5) H 04/22/17 14:30 INR 1.27 (0.93-1.08) H 04/22/17 14:30 APTT 71.9 Seconds (25.1-36.5) H 04/28/17 02:20 - Constitutional Appears: Chronically Ill - Head Exam Head Exam: NORMAL INSPECTION - Neck Exam Neck Exam: absent: Meningismus - Respiratory Exam Respiratory Exam: Decreased Breath Sounds - Cardiovascular Exam Cardiovascular Exam: +S1, +S2 - GI/Abdominal Exam GI & Abdominal Exam: Soft. absent: Tenderness Assessment and Plan - Assessment and Plan (Free Text) Plan: Assessment Sepsis due to bilateral community-acquired pneumonia NSTEMI with CAD S/P PCI x 4 yesterday with intra-aortic balloon pump placement COPD significant smoking history Plan Continue Rocephin and Zithromax to complete 5-7 days of therapy (Day 6 today) - will d/c antibiotics tomorrow will continue to monitor clinically
--- NOTE | 2017-04-28 11:50 | CARD ---
APPROVED REPORT EKG Measurement Heart [id number] [id number] <Conclusion> Normal sinus rhythm Inferior infarct, age undetermined Abnormal ECG
[2017-04-28] MEDS: cefTRIAXone 1 gm 1 GM/100 ML BAG IVPB SCH (16:14)
--- NOTE | 2017-04-28 16:45 | PN ---
DATE: REASON FOR CONSULTATION AND FOLLOWUP: Bilateral pneumonia, non-STEMI, cardiogenic shock, multivessel PTCA on intraaortic balloon pump. SUBJECTIVE: Patient denies any chest pain, shortness of breath, any palpitation on intraaortic balloon pump. Heparin was stopped at 7 a.m. for preparation to discontinue balloon pump. Hemodynamically stable. PHYSICAL EXAMINATION GENERAL: Not in apparent distress, lying flat in the bed, feels a lot better. VITAL SIGNS: As follows, temperature afebrile, heart rate 87, blood pressure 133/79. HEENT: PERRLA intact. NECK: Supple. No carotid bruit or thyromegaly. CHEST: Clear to auscultation. HEART: S1 and S2, regular. ABDOMEN: Soft. EXTREMITIES: Clubbing and cyanosis negative. LABORATORY DATA: WBC 17.8, hemoglobin 12.5, hematocrit 38.5, platelet count 171. Chemistry shows sodium 130, potassium 4.4, chloride 99, carbon dioxide 32, anion gap of 30, BUN 17, creatinine of 0.7. Troponin 6.57, maximum troponin was 12.7, it was yesterday. IMPRESSION: Cardiogenic shock, multivessel coronary artery disease, decreased left ventricular function, multilobar pneumonia. She is status post complex percutaneous transluminal coronary angioplasty of right coronary artery proximal and distal, is status post complex percutaneous transluminal coronary angioplasty of totally occluded left anterior descending. Cardiogenic shock, intraaortic balloon pump. RECOMMENDATION: Off heparin since 7 a.m. We will repeat stat ACT. If ACT is below 150, we will discontinue balloon pump, put the balloon pump 1:1. Continue aspirin, Plavix, Lasix. Further recommendation after discontinuing the balloon pump. Discussed with the patient, patient is comfortable. Further recommendation depending upon discontinuing the balloon pump. Louie Harding MD
--- NOTE | 2017-04-28 18:44 | PN ---
DATE: 04/28/2017 SUBJECTIVE: The patient seen and examined at bedside. She is subjectively and objectively substantially improved. Aortic balloon pump was removed. She is on 40% FIO2 with oxygen saturation varies between 97-98%. She talks full sentences. She is definitely not in respiratory or otherwise distress. PHYSICAL EXAMINATION VITAL SIGNS: Heart rate 86 blood pressure 134/86, respiratory rate 19, oxygen saturation 98% on 40% FIO2. ENT: Head and neck atraumatic. LUNGS: Clear auscultation bilaterally. HEART: Regular rate and rhythm, S1 and S2 normal. ABDOMEN: Soft, nontender, nondistended. MUSCULOSKELETAL: No C/C/C. There is a palpable 2+ pulses on both DP. NEUROLOGIC: The patient moves all extremities spontaneously. SKIN: Moist. PSYCH: The patient is alert and oriented x3. LABORATORY DATA: WBC 17.2, hemoglobin 12.5, platelet count 171. Sodium 139, potassium 4.4, chloride 99, carbon dioxide 32, BUN 17, creatinine 0.6, glucose 116, troponin 6.54, AST 67, ALT 69, lactate dehydrogenase is 2178. MEDICATIONS: Tylenol p.r.n., acetylcysteine inhaled, DuoNeb every 6 hours, Xanax p.r.n., aspirin, Lipitor, Coreg, Plavix, doxycycline, Lasix daily, Levemir, metformin, Solu-Medrol 20 mg IV q. 12, Nicotine patch, Protonix, ramipril Januvia and ceftriaxone. ASSESSMENT: This is 57-year-old lady who presented to ICU with cardiogenic shock necessitating aortic balloon pump placement. At present time, she is hemodynamically stable. Her respiratory status substantially improved. Her FIO2 requirement decreased. She is not in respiratory or otherwise distress. She has an aortic balloon pump removed. In 6 hours, she will be allowed to sit down in the chair as per Cardiology service. If she tolerates out of bed to chair well and oral nutrition she will be transferred to telemetry. We will continue target euvolemia, euglycemia, normothermia and oxygen saturation of more than 90%. We will continue cardiac regimen according to Cardiology service., ccm time 40 min Easton Pantoja MD [facility]
--- NOTE | 2017-04-29 01:43 | PN ---
PULMONARY PROGRESS NOTE DATE: 04/28/2017 REFERRING PHYSICIAN: Luke Morgan MD SUBJECTIVE: She is lying in the bed, family is at bedside. Feels better. Still on high-flow nasal cannula oxygen. Intraaortic balloon being removed. Cough and shortness of breath is better. No nausea. No vomiting. No diarrhea. OBJECTIVE: GENERAL: No acute distress. VITAL SIGNS: Temperature is 98, heart rate 90, respiratory rate is 12, pulse oximetry 100% on high-flow nasal cannula, and blood pressure 103/69. HEENT: Moist mucous membranes. No ulcer or thrush. NECK: Supple. No JVD. LUNGS: Has a crackles in both lung hardin. HEART: S1 and S2. ABDOMEN: Soft and nontender. No organomegaly. EXTREMITIES: There is no edema. NEUROLOGIC: Awake and alert. Follow simple commands. MEDICATIONS: She is on Mucomyst 20% inhaled twice a day, Altace 1.25 mg daily, Coreg 3.125 mg twice a day, doxycycline 100 mg twice a day, DuoNeb q. 2 hours p.r.n. and q. 6 hours around the clock, Ecotrin 81 mg daily, metformin 500 mg twice a day which is on hold, insulin coverage, Januvia 100 mg daily, Lasix 40 mg daily, Levemir units subcu twice a day, she is on Levophed, Lipitor 80 mg daily, Nicoderm patch daily, Plavix 75 mg daily, Protonix 40 mg daily, Rocephin 1 g IV daily, Solu-Medrol 20 mg q. 12 hours, Tylenol p.r.n., and Xanax 0.5 mg at bedtime p.r.n. LABORATORY DATA: Shows hemoglobin 12.5, hematocrit 38.5, WBC 17.2, and platelet is 171. PTT is 72. Sodium 139, potassium 4.4, chloride 99, bicarbonate 32, BUN 17, creatinine 0.6, glucose 116, calcium 9.2, phosphorous 3.5, magnesium 2.2, AST 67, ALT 69, alkaline phosphatase is 107, troponin 6.54 and albumin is 3.3. IMPRESSION AND PLAN: Cardiomyopathy and multivessel coronary artery disease, status post coronary stent, pulmonary edema, chronic obstructive lung disease. Case discussed with nursing staff. Spoke to family, all the questions answered. May wean off high-flow oxygen to nasal cannula. Keep pulse oximetry 92% and better. Continue IV steroids, bronchodilator, antibiotics, beta-braulio afterload can inspector. Follow up CBC, CMP and chest x-ray in the morning. Thank you and we will follow with you. oLuie Denny MD
[2017-04-29 05:47] LABS: BASO # 0.01 K/mm3 (0.0-2.0); BASO % 0.1 % (0.0-3.0); EOS % 0.1 % (1.5-5.0); GRAN # 14.91 (1.4-6.5); GRAN % 85.2 % (50.0-68.0); HEMOGLOBIN 13.3 g/dL (12.0-16.0); LYMPH # 1.8 (1.2-3.4); LYMPH % 10.5 % (22.0-35.0); MEAN CELL VOLUME 91.8 fl (80.0-105.0); MEAN CORPUSCULAR HEMOGLOBIN 31.3 pg (25.0-35.0); MEAN CORPUSCULAR HGB CONC 34.1 g/dl (31.0-37.0); MONO # 0.7 (0.1-0.6); MONO % 4.1 % (1.0-6.0); RBC 4.25 10^6/uL (3.5-6.1); RED CELL DISTRIBUTION WIDTH 12.6 % (11.5-14.5); WHITE BLOOD COUNT 17.5 10^3/ul (4.5-11.0)
[2017-04-29 06:19] LABS: ALB/GLOB RATIO 0.9 (1.1-1.8); ALBUMIN 3.2 g/dL (3.0-4.8); ALT/SGPT 60 U/L (7-56); AST/SGOT 45 U/L (14-36); BLOOD UREA NITROGEN 16 mg/dL (7-21); CALCIUM 8.9 mg/dL (8.4-10.5); GFR AFRICAN-AMERICAN > 60; GFR NON-AFRICAN AMERICAN > 60
[2017-04-29 06:54] LABS: CK MB% 1.3 % (2.5-3.0); CK-MB 5.5 ng/mL (0.0-3.6); TROPONIN I 2.79 ng/mL
[2017-04-29] MEDS: Pantoprazole 40 mg EC Tab PO SCH (07:04)
[2017-04-29] MEDS: Acetylcysteine 20% Inhal Soln (4ml) IH SCH ×2 (07:10→21:15)
[2017-04-29] MEDS: Albuterol-Ipratrop 3 mg / 0.5 (3 ml) UD IH SCH (07:10)
--- NOTE | 2017-04-29 08:31 | RAD ---
PROCEDURE: CHEST RADIOGRAPH, 1 VIEW HISTORY: infiltrate COMPARISON: None available. FINDINGS: LUNGS: Bilateral interstitial changes. PLEURA: No pneumothorax or pleural fluid seen. CARDIOVASCULAR: Normal. OSSEOUS STRUCTURES: No significant abnormalities. VISUALIZED UPPER ABDOMEN: Normal. OTHER FINDINGS: None. IMPRESSION: Bilateral interstitial changes.
[2017-04-29] MEDS: MethylPREDNISolone 40 mg Vial IVP SCH ×2 (09:18→22:54)
[2017-04-29] MEDS: Insulin Detemir 100 units/ml Vial (Levemir) SC SCH ×2 (09:19→18:14)
[2017-04-29] MEDS: Insulin Reg-MEDIUM-Coverage SC SCH ×3 (09:19→22:52)
--- NOTE | 2017-04-29 10:31 | CP.PCM.PN ---
Subjective - Date & Time of Evaluation Date of Evaluation: 04/29/17 Time of Evaluation: 09:30 - Subjective Subjective: IABP has been removed, breathing better, less cough, no fevers overnight. Objective - Vital Signs/Intake and Output Vital Signs (last 24 hours): Temp Pulse Resp BP Pulse Ox 97.4 F L 92 H 21 108/70 100 04/29/17 00:01 04/29/17 07:20 04/29/17 07:20 04/29/17 07:00 04/29/17 07:20 - Medications Medications: Current Medications Acetaminophen (Tylenol 325mg Tab) 650 mg PO Q6H PRN PRN Reason: Fever >100.4 F Last Admin: 04/25/17 10:48 Dose: 650 mg Acetylcysteine (Acetylcysteine 20%) 4 ml IH Q12 [facility] Last Admin: 04/29/17 07:10 Dose: 4 ml Albuterol/Ipratropium (Duoneb 3 Mg/0.5 Mg (3 Ml) Ud) 3 ml IH [id number] [facility] Last Admin: 04/29/17 07:10 Dose: 3 ml Albuterol/Ipratropium (Duoneb 3 Mg/0.5 Mg (3 Ml) Ud) 3 ml IH Q2H PRN PRN Reason: Shortness of Breath Alprazolam (Xanax) 0.5 mg PO HS PRN; Protocol PRN Reason: Anxiety Aspirin (Ecotrin) 81 mg PO DAILY [facility] Last Admin: 04/27/17 09:51 Dose: 81 mg Atorvastatin Calcium (Lipitor) 80 mg PO DIN [facility] Last Admin: 04/28/17 17:50 Dose: 80 mg Carvedilol (Coreg) 3.125 mg PO BID [facility] Last Admin: 04/28/17 17:51 Dose: 3.125 mg Clopidogrel Bisulfate (Plavix) 75 mg PO DAILY [facility] Last Admin: 04/28/17 11:35 Dose: 75 mg Furosemide (Lasix) 40 mg IV DAILY [facility] Stop: 04/29/17 23:59 Last Admin: 04/28/17 11:34 Dose: 40 mg Furosemide (Lasix) 40 mg PO DAILY [facility] Ceftriaxone Sodium (Rocephin 1 Gram Ivpb) 1 gm in 100 mls @ 100 mls/hr IVPB 1600 GADIEL PRN Reason: Protocol Last Admin: 04/28/17 16:14 Dose: 100 mls/hr NOREPINEPHRINE BIT/0.9 % NACL (Levophed 4 Mg/ 250 Ml Ns Premixed) 4 mg in 250 mls @ 15 mls/hr IV .[id number] PRN; Protocol; 4 MCG/MIN PRN Reason: TITRATE PER MD ORDER Doxycycline Hyclate 100 mg/ (Sodium Chloride) 100 mls @ 100 mls/hr IVPB Q12 GADIEL PRN Reason: Protocol Last Admin: 04/28/17 23:00 Dose: 100 mls/hr Insulin Detemir (Levemir) 15 unit SC BID [facility] Last Admin: 04/28/17 17:51 Dose: 15 unit Insulin Human Regular (Humulin R Med) 0 units SC ACHS GADIEL PRN Reason: Protocol Last Admin: 04/28/17 22:59 Dose: Not Given Metformin HCl (Glucophage) 500 mg PO BID [facility] Last Admin: 04/25/17 17:28 Dose: 500 mg Methylprednisolone (Solu-Medrol) 20 mg IVP Q12 [facility] Last Admin: 04/28/17 23:00 Dose: 20 mg Nicotine (Nicoderm Cq) 1 patch TD DAILY [facility] Last Admin: 04/28/17 10:55 Dose: Not Given Pantoprazole Sodium (Protonix Ec Tab) 40 mg PO 0600 [facility] Last Admin: 04/29/17 07:04 Dose: 40 mg Ramipril (Altace) 1.25 mg PO DAILY [facility] Last Admin: 04/28/17 11:35 Dose: 1.25 mg Sitagliptin Phosphate (Januvia) 100 mg PO DAILY [facility] Last Admin: 04/28/17 10:47 Dose: 100 mg - Labs Labs: 04/29/17 05:30 04/29/17 05:30 PT 13.9 SECONDS (9.4-12.5) H 04/22/17 14:30 INR 1.27 (0.93-1.08) H 04/22/17 14:30 APTT 71.9 Seconds (25.1-36.5) H 04/28/17 02:20 - Constitutional Appears: Chronically Ill - Head Exam Head Exam: NORMAL INSPECTION - ENT Exam ENT Exam: Normal Oropharynx - Neck Exam Neck Exam: absent: Meningismus - Respiratory Exam Respiratory Exam: Decreased Breath Sounds, Rales (scattered) - Cardiovascular Exam Cardiovascular Exam: +S1, +S2 - GI/Abdominal Exam GI & Abdominal Exam: Soft. absent: Tenderness Assessment and Plan - Assessment and Plan (Free Text) Plan: Assessment Sepsis due to bilateral community-acquired pneumonia, clinically improving NSTEMI with CAD S/P PCI x 4 yesterday with intra-aortic balloon pump placement COPD significant smoking history Plan Continue Rocephin and doxycycline to complete 5-7 days of therapy (Day 7 today) - will d/c antibiotics today will continue to monitor clinically
--- NOTE | 2017-04-29 12:01 | CARD ---
APPROVED REPORT EKG Measurement Heart [id number] <Conclusion> Normal sinus rhythm Normal ECG
--- NOTE | 2017-04-29 15:51 | PN ---
DATE: REASON FOR CONSULTATION AND FOLLOWUP: Bilateral pneumonia, [id number] myocardial infarction, cardiogenic shock, multivessel PTCA, he is status post removal of the balloon pump. SUBJECTIVE: The patient is sitting at the bed, feels a lot better on 2 L nasal cannula, not in respiratory distress. Intraaortic balloon pump discontinued yesterday. OBJECTIVE: GENERAL: Not in distress, sitting and eating the breakfast, and texting to the family. VITAL SIGNS: As follows: Temperature afebrile, heart rate 91, and blood pressure 112/62. HEENT: PERRLA. Extraocular muscles intact. NECK: Supple. No carotid bruits or thyromegaly. CHEST: Clear to auscultation. HEART: S1 and S2 regular. ABDOMEN: Soft. EXTREMITIES: Clubbing and cyanosis negative. LABORATORY DATA: WBC 17.5, hemoglobin 13.3, hematocrit 39, and platelet count 235. Chemistry shows sodium 137, potassium 4.3, chloride 95, carbon dioxide 36, anion gap of 10, BUN 16, creatinine 0.6, troponin trended down to 2.79, magnesium 2, and phosphorus 4.9. IMPRESSION: Cardiogenic shock, dho-LA-wabychi myocardial infarction, multivessel coronary artery disease, he is status post multivessel percutaneous transluminal coronary angioplasty, residual circumflex stenosis untouched yet, cardiomyopathy ischemic, left anterior descending artery totally occluded, right coronary artery high grade stenosis, status post multivessel angioplasty, status post intraaortic balloon pump, status post removal of intraaortic balloon pump, diabetes, hypertension, hyperlipidemia, and bilateral pneumonia. RECOMMENDATIONS: We will discontinue Duo-nebulizer treatment, changed to Xopenex to prevent tachycardia. Continue SHAWNA inhibitor. Continue Coreg. Continue gentle diuretics. Change to p.o. from tomorrow. Get the MUGA scan and transfer out to Telemetry depending upon further clinical course. Consider PTCA of the circumflex probably by the end of the week and discussed with the patient. Continue atorvastatin. Repeat MUGA scan tomorrow. Discussed with . labor and employment paralegal. We will repeat another echo to see how much ejection fraction, as well as MR improved. Thank you Dr. Morgan for providing us the opportunity in taking care of the patient, Kim Linton. Louie Harding MD
--- NOTE | 2017-04-29 18:19 | PN ---
DATE: 04/29/2017 SUBJECTIVE: The patient is seen and examined at bedside. She is comfortable. She talks full sentences. She is not in respiratory or otherwise distress. PHYSICAL EXAMINATION VITAL SIGNS: Temperature 97.7, heart rate 92, blood pressure 117/77, respiratory 20, saturation 100% on nasal cannula. ENT: Head and neck atraumatic. LUNGS: Clear auscultation bilaterally. HEART: Regular rate and rhythm. S1 and S2 normal. ABDOMEN: Soft, nontender, nondistended. MUSCULOSKELETAL: No C/C/E. Trace bilateral pedal and ankle edema. NEURO: The patient moves all extremities spontaneously. SKIN: Moist. PSYCH: The patient is alert and oriented x3. LABORATORY DATA: WBC 17.5, hemoglobin 13.3, platelet count 235. Sodium 137, potassium 0.3, chloride 95, carbon dioxide 36, BUN 16, creatinine 0.6, glucose 266, AST 45, ALT 16. MEDICATION: Tylenol p.r.n., Mucomyst, DuoNeb p.r.n., Xanax p.r.n., aspirin, Lipitor, Coreg, Plavix, doxycycline, Lasix daily, Levemir, metformin, Solu-Medrol, Nicotine patch, norepinephrine, Protonix, Altace and Januvia. ASSESSMENT: This 57-year-old lady who presented initially to ICU with cardiogenic shock status post intraaortic balloon pump placement. Cardiogenic shock resolved. Hemodynamic stability achieved. Aortic balloon pump removed. Conservative fluid management instituted. Aspirin, Plavix, beta-blockers, statins are initiated. The patient's FIO2 requirement substantially decreased. She was transferred to nasal cannula. She is hemodynamically and respiratory marvin stable. Okay to downgrade to telemetry. ccm time 40 min Easton Pantoja MD JOSEY
[2017-04-29] MEDS: Albuterol-Ipratrop 3 mg / 0.5 (3 ml) UD IH PRN (21:15)
--- NOTE | 2017-04-29 23:13 | PN ---
DATE: 04/29/2017 PULMONARY PROGRESS NOTE REFERRING PHYSICIAN: Luke Morgan MD SUBJECTIVE: She is moved out of ICU, lying in the bed, feels okay, still have cough and shortness of breath. No nausea. No vomiting. No diarrhea. No leg pain or leg swelling. OBJECTIVE: GENERAL: In no acute distress. VITAL SIGNS: Temperature is 98, heart rate is 92, respiratory rate is 20, blood pressure 117/77, pulse oximetry 100% on nasal cannula. HEENT: Moist mucous membranes. Crowded airway. NECK: Supple. No JVD. LUNGS: Have bilateral crackles, but better airflow. HEART: S1 and S2. ABDOMEN: Soft and nontender. No organomegaly. EXTREMITIES: There is no edema. NEUROLOGIC: Awake and alert. Follows simple commands. MEDICATIONS: She is on Mucomyst 20% inhaled twice a day, Altace 1.25 mg daily, Coreg 3.125 mg twice a day, doxycycline 100 mg twice a day, DuoNeb q. 2 hours p.r.n., Ecotrin 81 mg daily, metformin 500 mg twice a day, insulin coverage, Januvia 100 mg daily, Lasix 40 mg daily, Levemir 15 units subcu twice a day, Lipitor 80 mg daily, Nicoderm patch daily, Plavix 75 mg daily, Protonix 40 mg daily, Solu-Medrol 20 mg q.12 hours, Tylenol p.r.n., and Xanax 0.5 mg at bedtime p.r.n., Xopenex inhaled q. 6 hours p.r.n. LABORATORY DATA: Shows hemoglobin 13.3, hematocrit 39.0, WBC 17.5, platelet count is 235. Sodium 137, potassium 4.3, chloride 95, bicarbonate 36, BUN 16, creatinine 0.6, glucose 222, calcium is 8.9, phosphorous 4.9, magnesium 2.0, AST 45, ALT 60, alkaline phosphatase is 88, albumin is 3.2, troponin 2.79. Microbiology; blood culture, sputum culture, urine culture, nasal, all unremarkable. Chest x-ray done today still shows residual infiltrates. IMPRESSION AND PLAN: Cardiomyopathy with multivessel coronary artery disease, status post coronary stent; pulmonary edema, slowly improving; chronic obstructive lung disease. I doubt there is any pneumonia, it is all from chronic passive congestion calling interstitial edema on the chest x-ray. May benefit from TICU type services before further coronary intervention. Continue bronchodilator. Will benefit from TICU again. Thank you and we will follow with you. Louie Denny MD
[2017-04-30] MEDS: Pantoprazole 40 mg EC Tab PO SCH (05:51)
[2017-04-30 07:04] LABS: BASO # 0.02 K/mm3 (0.0-2.0); BASO % 0.1 % (0.0-3.0); EOS % 0.2 % (1.5-5.0); GRAN # 14.72 (1.4-6.5); GRAN % 80.8 % (50.0-68.0); LYMPH # 2.6 (1.2-3.4); LYMPH % 14.1 % (22.0-35.0); MEAN CELL VOLUME 92.7 fl (80.0-105.0); MEAN CORPUSCULAR HEMOGLOBIN 31.8 pg (25.0-35.0); MEAN CORPUSCULAR HGB CONC 34.3 g/dl (31.0-37.0); MEAN PLATELET VOLUME 11.4 fl (7.0-11.0); MONO # 0.9 (0.1-0.6); MONO % 4.8 % (1.0-6.0); RBC 4.4 10^6/uL (3.5-6.1); RED CELL DISTRIBUTION WIDTH 12.7 % (11.5-14.5); WHITE BLOOD COUNT 18.2 10^3/ul (4.5-11.0)
[2017-04-30 07:16] LABS: BLOOD UREA NITROGEN 19 mg/dL (7-21); CALCIUM 9.5 mg/dL (8.4-10.5); GFR AFRICAN-AMERICAN > 60; GFR NON-AFRICAN AMERICAN > 60
--- NOTE | 2017-04-30 08:23 | PN ---
DATE: 04/28/2017 ADDENDUM REASON FOR ADDENDUM: Intraaortic balloon pump discontinued, pressure held for 15 to 20 minutes and pressure bandage applied and good distal pulse. Prior to that ECG was checked and found to be 96 seconds. PLAN: To continue aspirin. Continue Plavix. Change Lasix to p.o. Discontinue Levemir. We will also discontinue Ley catheter at 6:00 p.m. Ambulate after 6:00 p.m. Out of bed to chair after 6:00 p.m. If remained stable transfer to Telemetry tomorrow. Further recommendation after the hospital course. We will reassess LV function by either MUGA or echo tomorrow and assess the MRI as well and further planning for stage angioplasty circumflex during the hospital course. We will follow with you. In the interim, continue aggressive treatment for pneumonia. We will follow with you. Thank you Dr. Morgan for providing us the opportunity in taking care of the patient, Kim Linton. Louie Harding MD
[2017-04-30] MEDS: Insulin Reg-MEDIUM-Coverage SC SCH ×4 (08:51→22:00)
[2017-04-30] MEDS: MethylPREDNISolone 40 mg Vial IVP SCH (09:32)
[2017-04-30] MEDS: Insulin Detemir 100 units/ml Vial (Levemir) SC SCH ×2 (09:35→18:34)
--- NOTE | 2017-04-30 11:06 | PN ---
DATE: 04/29/2017 SUBJECTIVE: The patient on the floor, transferred to medical floor. She has no chest pain. Her breathing is much better. She is sitting comfortably. She is on the nasal cannula. The patient feels weak, otherwise, stable. PHYSICAL EXAMINATION: VITAL SIGNS: On 04/29/2017, temperature is 98.2, heart rate is 91, blood pressure is 111/70, respirations are 20, and saturations are 98%. HEAD AND NECK: Normal. No JVD. No thyromegaly. CHEST: There are few basal crackles, otherwise, much better exam before. CARDIAC: First sound and second sound normal. ABDOMEN: Soft and nontender. EXTREMITIES: No edema. NEUROLOGIC: Normal. LABORATORY DATA: Her laboratory studies show white count 17.5, hemoglobin , hematocrit 39.0, and platelets 235. Chemistry show sodium 137, potassium 4.3, chloride 95, bicarbonate 36, BUN 16, creatinine 0.6, blood sugar 222, calcium 8.9, phosphorus 4.9, magnesium 2, total bilirubin 0.7, AST 45, ALT 60, and alkaline phosphatase 88. CPK 404. Troponin is 2.79, which is coming down. IMPRESSION AND PLAN: 1. Status post cardiac catheterization. Non-ST elevation myocardial infarction. Code Heart was called during cardiac catheterization and the patient had a balloon pump taken out for more than 24 hours and she is doing well. We will continue current cardiac medications for now. The patient is otherwise doing well. 2. Coronary artery disease status post stenting for left anterior descending artery and right coronary artery. According to Dr. Harding, continue current therapy. Continue Plavix and continue other treatment. She also getting Altace, Coreg, and Lipitor 80 mg at night. Continue current medications. Followup clinically. 3. Severe ischemic cardiomyopathy: The patient has ejection fraction less than 30%. We will reevaluate after a month or two her LV function and see how she does. We will discuss further about the plan. 4. Bilateral pneumonia: She has multilobar pneumonia, both lungs upper and lower. She seems doing better than before. Continue doxycycline. Continue Rocephin. For underlying chronic obstructive pulmonary disease and history of smoking for years, we will continue slowly tapering Solu-Medrol. We will follow up with Dr. Denny. Continue inhaled bronchodilators, Mucomyst and Xopenex. We will follow on that. 5. Generalized weakness: evaluation. Continue physical therapy. 6. Continue gastrointestinal and deep venous thrombosis prophylaxis. Luke Morgan MD
[2017-04-30] MEDS: Enoxaparin 40 mg Syringe SC SCH (11:16)
[2017-04-30] MEDS: Acetylcysteine 20% Inhal Soln (4ml) IH SCH ×2 (12:12→22:00)
[2017-04-30] MEDS: Levalbuterol 0.63 MG/3 ML Inhal Soln UD IH PRN (12:12)
--- NOTE | 2017-04-30 15:49 | CARD ---
APPROVED REPORT INDICATION PNEUMONIA,S/P CARDIOGENIC SHOCK.S/P MULTI VESSEL PTCA,LV/R PROCEDURE The above named patient recieved 26.3 millicuries of Tc99m tagged red blood cells intravenously. After achieving equilibrium, gated imaging of 16/frame/cycle was performed utillizing Gamma camera interfaced with a digital computer and gated device. Gated imaging was then performed in the left anterior oblique, anterior, and the left lateral projections. Findings Left Ventricle: The quality of the study is good. The left ventricle is moderately enlarged. The right ventricle is normal in size. Wall motion study shows diffuse hypokinesis of the left ventricle. RV wall motion is normal. The right atrium is dynamic. The remainder of the study is unremarkable. Impressions Moderate to severe LV dysfunction with diffuse hypokinesis. LVEF = 28%. Normal RV wall motion.
--- NOTE | 2017-04-30 17:55 | CARD ---
APPROVED REPORT EXAM: Two-dimensional and M-mode echocardiogram with Doppler and color Doppler. INDICATION CAD,S/P MULTIVESSEL PTCA,LVFX 2D DIMENSIONS Left Atrium (2D)4.6 (1.6-4.0cm)IVSd0.9 (0.7-1.1cm) LVDd5.7 (3.9-5.9cm)PWd0.9 (0.7-1.1cm) LVDs5.0 (2.5-4.0cm)FS (%) 12.2 % LVEF (%)25.9 (>50%) M-Mode DIMENSIONS Aortic Root2.80 (2.2-3.7cm)Aortic Cusp Exc.1.60 (1.5-2.0cm) Aortic Valve AoV Peak Upwwwvku593.0cm/Bell Peak GR.6mmHg Mitral Valve MV E Kvibxqkf803.0cm/sMV A Esqipxpk37.5cm/sE/A ratio1.4 TDI Lateral E' Peak V9.46cm/sMedial E' Peak V6.82cm/sE/Lateral E'10.7 E/Medial E'14.8 Pulmonary Valve PV Peak Bgnuuywr23.7cm/sPV Peak Grad.2mmHg Tricuspid Valve TR Peak Uozudzlh648ng/sRAP [id number] Peak Gr.12mmHg [id number] LEFT VENTRICLE The Left Ventricle is borderline dilated. There is normal left ventricular wall thickness. The systolic function is moderately to severely impaired.EF-25-30% There is severe hypokinesis in the apical anterior wall. There is mild to moderate hypokinesis in the mid-inferolateral wall. Transmitral Doppler flow pattern is Grade II-pseudonormal filling dynamics. No left ventricle thrombus noted on this study. There is no ventricular septal defect visualized. There is no left ventricular aneurysm. There is no mass noted in the left ventricle. RIGHT VENTRICLE The right ventricle is normal size. There is normal right ventricular wall thickness. The right ventricular systolic function is normal. ATRIA The left atrium is mildly dilated. The right atrium size is normal. The interatrial septum is intact with no evidence for an atrial septal defect. AORTIC VALVE The aortic valve is thickened but opens well. No aortic regurgitation is present. There is no aortic valvular stenosis. There is no aortic valvular vegetation. MITRAL VALVE The mitral valve is thickened but opens well. Mitral regurgitation is moderate. There is no mitral valve stenosis. There is no evidence of mitral valve prolapse. TRICUSPID VALVE The tricuspid valve is normal in structure. There is trace tricuspid regurgitation. There is no tricuspid valve stenosis. There is no tricuspid valve prolapse or vegetation. PULMONIC VALVE The pulmonary valve is normal in structure. There is no pulmonic valvular regurgitation. There is no pulmonic valvular stenosis. GREAT VESSELS The aortic root is normal in size. The ascending aorta is normal in size. The pulmonary artery is normal. The IVC is normal in size and collapses >50% with inspiration. PERICARDIAL EFFUSION There is no pleural effusion. There is no pericardial effusion. There is no pericardial effusion. <Conclusion> The Left Ventricle is borderline dilated. There is normal left ventricular wall thickness. The systolic function is moderately to severely impaired.EF-25-30% Mitral regurgitation is moderate. There is trace tricuspid regurgitation. S/p cardiogenic Shock, S/p IABP, S/p Multivessel PTCA No tyhrombus noted.
--- NOTE | 2017-04-30 19:04 | PN ---
DATE: 04/30/2017 REASON FOR CONSULTATION AND FOLLOWUP: Bilateral pneumonia, noc-DB-gftetio myocardial infarction, cardiogenic shock, status post multivessel PTCA, status post intraaortic balloon, status post removal of intraaortic balloon pump. SUBJECTIVE: The patient feels a lot better, sitting at the bedside. OBJECTIVE: GENERAL: Not in apparent distress. VITAL SIGNS: Temperature afebrile, heart rate 89, blood pressure 110/68. HEENT: PERRLA. Extraocular muscles intact. NECK: Supple. No carotid bruits or thyromegaly. CHEST: Clear to auscultation. HEART: S1 and S2 regular. ABDOMEN: Soft. EXTREMITIES: Clubbing and cyanosis negative. LABORATORY DATA: Blood workup as follows. WBC 18.8, hemoglobin 14.2, hemoglobin 40.8, platelet count 243. Chemistry shows sodium 130, potassium 4.0, chloride 94, carbon dioxide 34, anion gap of 14, BUN 19, creatinine 0.6. IMPRESSION: Bilateral pneumonia, cardiogenic shock, status post multivessel PTCA, intraaortic balloon, status post removal of balloon pump yesterday, diabetes, hyperlipidemia, bilateral pneumonia. RECOMMENDATIONS: Continue aspirin, continue Plavix, continue SHAWNA inhibitor, continue atorvastatin, continue DVT prophylaxis, complete cessation of smoking. We will do the MUGA scan today and echo to assess LV function as well as mitral regurgitation. Further recommendations after the finding of this workup. We will follow with you. Depending on possibly by the end of this week, another angioplasty of circumflex. Depending upon the clinical course, we will follow with you. Thank you Dr. Morgan for providing us the opportunity in taking care of Shaila Alvarez. Louie Hardnig MD
[2017-04-30] MEDS: Albuterol-Ipratrop 3 mg / 0.5 (3 ml) UD IH PRN (22:00)
--- NOTE | 2017-04-30 22:45 | PN ---
DATE: 04/30/2017 REFERRING PHYSICIAN: Luke Morgan MD SUBJECTIVE: She is lying in the bed, head at 45 degrees. Feels better. Decreased cough and shortness of breath. No nausea. No vomiting or diarrhea. No leg pain or leg swelling. PHYSICAL EXAMINATION: GENERAL: In no acute distress. VITAL SIGNS: Temperature 98, heart rate 89, respiratory rate 18, blood pressure 110/68, pulse oximetry 99% on nasal cannula. HEENT: Moist mucous membranes. Crowded airway. NECK: Supple. No JVD. LUNGS: Have crackles at both lung hardin, but improved airflow. HEART: S1 and S2. ABDOMEN: Soft, nontender. No organomegaly. EXTREMITIES: There is no edema. NEUROLOGIC: Awake and alert. Follows simple commands. MEDICATIONS: She is on Altace 1.25 mg daily, also on Mucomyst inhaled twice a day, Coreg 3.125 mg twice a day, Duoneb q.6 hours, Ecotrin 81 mg daily, metformin 500 mg twice a day, insulin coverage, Januvia 100 mg daily, Lasix 40 mg daily, Levemir 15 units subcu twice a day, Lipitor 80 mg daily, Lovenox 40 mg daily, NicoDerm patch daily, Plavix 75 mg daily, Protonix 40 mg daily, Solu-Medrol 20 mg twice a day, Tylenol p.r.n., Xanax 0.5 mg at bedtime p.r.n., Xopenex inhaled q.6 hours. LABORATORY DATA: Shows hemoglobin 14.0, hematocrit 40.8, WBC 18.2, platelet count is 243. Sodium 138, potassium 4.2, chloride 94, bicarbonate 34, BUN 19, creatinine 0.6, glucose 227, calcium is 9.5. Microbiology: Blood cultures, urine cultures, sputum cultures have been negative, no growth. Nuclear scan done today shows [id number] LV dysfunction, LV ejection fraction about 28%. Normal RV wall motion. Also had echocardiogram done today, which shows right ventricular systolic pressure is 22, LV ejection fraction severely decreased to 25% to 30%. IMPRESSION AND PLAN: Cardiomyopathy with multivessel coronary artery disease, status post coronary stent, pulmonary edema, slowly improving chronic obstructive lung disease. Pulmonary point of view, doing much better. We will discontinue Solu-Medrol, place on prednisone 20 mg daily, continue inhaled bronchodilator, continue diuretics. I think the patient will benefit from transitional residential conditional use type of services. Thank you and we will follow with you. Louie Denny MD
[2017-05-01] MEDS: Pantoprazole 40 mg EC Tab PO SCH (06:29)
[2017-05-01] MEDS: Acetylcysteine 20% Inhal Soln (4ml) IH SCH ×2 (08:25→20:30)
[2017-05-01] MEDS: Levalbuterol 0.63 MG/3 ML Inhal Soln UD IH PRN ×2 (08:26→20:30)
[2017-05-01] MEDS: Insulin Reg-MEDIUM-Coverage SC SCH ×5 (08:28→22:00)
[2017-05-01] MEDS: Insulin Detemir 100 units/ml Vial (Levemir) SC SCH ×2 (12:02→18:05)
[2017-05-01] MEDS: Enoxaparin 40 mg Syringe SC SCH (12:02)
[2017-05-01] MEDS: Fluticasone Nasal 50 mcg/Spray NS SCH (12:03)
--- NOTE | 2017-05-01 16:10 | PN ---
DATE: 05/01/2017 REASON FOR CONSULTATION AND FOLLOWUP: Bilateral pneumonia, [id number] myocardial infarction, cardiogenic shock, status post multivessel PTCA, status post intraaortic balloon, status post removal of intraaortic balloon pump. PHYSICAL EXAMINATION GENERAL: Not in apparent distress. VITAL SIGNS: As follows: Temperature afebrile, heart rate 80, blood pressure 107/63. HEENT: PERRLA. Extraocular muscles intact. NECK: Supple. No carotid bruits or thyromegaly. CHEST: Clear to auscultation. HEART: S1 and S2 regular. ABDOMEN: Soft. EXTREMITIES: Clubbing and cyanosis negative. LABORATORY DATA: WBC 18.8, hemoglobin 14.2, hematocrit 40.8 and platelet count 243. Chemistry shows sodium 130, potassium 4.0, chloride 94, carbon dioxide 34, anion gap of 14, BUN 19 and creatinine 0.9. IMPRESSION: Cardiogenic shock, status post multivessel coronary artery disease, status post multivessel percutaneous transluminal coronary angioplasty of proximal and distal right coronary artery status post percutaneous transluminal coronary angioplasty of left anterior descending artery to stent status post intraaortic balloon pump. The patient has a repeat echocardiography done yesterday that shows significantly decreased mitral regurgitation, ejection fraction around 25% to 30%, [id number] mitral regurgitation, tricuspid regurgitation. The patient has MUGA scan done yesterday that showed ejection fraction of 28%. RECOMMENDATIONS: Continue aspirin. Continue ramipril. Continue Coreg. Continue DVT prophylaxis. We will start Brilinta. Discussed with Dr. Morgan who this morning that patient has so many high-risk Brilinta. The problem with Brilinta is most of the insurance does not approve, but the patient can get benefit at least while the patient is here. We will schedule repeat cardiac catheterization and possible angioplasty to circumflex on and we will look LAD as in the mid of the LAD, camera was broken and PTCA was completed with C-arm. So, we will look again into the LAD and most likely possible PTCA of the circumflex. Switch Plavix to Brilinta today and as mentioned PTCA on . Then, the patient can go to the rehab for a couple of days. We will monitor the patient closely. Repeat LV function evaluation 3 to 6 months; if remain below 35, consider AICD. Interim, continue Coreg. Continue SHAWNA inhibitors, p.o. Lasix, keep n.p.o. after Sunday morning for cardiac catheterization on . I discussed with the patient. We will check CBC, SMA-7. Thank you Dr. Morgan for providing us the opportunity in taking care of the patient, Kim Linton. Louie Harding MD
--- NOTE | 2017-05-02 02:04 | PN ---
DATE: 05/01/2017 PULMONARY PROGRESS NOTE REFERRING PHYSICIAN: Luke Morgan MD. SUBJECTIVE: The patient is sitting up in a bed. Family and friends at bedside. Feels better. Does not require oxygen today. No nausea. No vomiting. No diarrhea. No leg pain or leg swelling. OBJECTIVE: GENERAL: In no acute distress. VITAL SIGNS: Temperature is 98, heart rate is 97, respiratory rate is 20, blood pressure 109/67, pulse ox is 96% on room air. HEENT: Moist mucous membranes. Crowded airway. NECK: Supple. No JVD. LUNGS: Crackles are much improved, fair airflow. HEART: S1 and S2. ABDOMEN: Soft, nontender. No organomegaly. EXTREMITIES: No edema. NEUROLOGIC: Awake, alert, follows simple command. MEDICATIONS: She is on Mucomyst inhaler q. 12 hours, Altace 1.25 mg daily, Brilinta 90 mg twice a day, Coreg 3.125 mg twice a day, DuoNeb q. 2 hours p.r.n., Ecotrin 81 mg daily, Flonase one spray each nostril daily, metformin 500 mg twice a day, insulin coverage, Januvia 100 mg daily, Lasix 40 mg daily, Levemir 20 units subcu twice a day, Lipitor 80 mg daily, Lovenox 40 mg daily, Nicoderm patch daily, prednisone 20 mg daily, Protonix 40 mg daily, Tylenol p.r.n. basis, Xanax 0.5 mg at bedtime p.r.n., Xopenex inhaled q. 6 hours. LABORATORY DATA: Reviewed, shows blood sugar this morning 286. IMPRESSION AND PLAN: Cardiomyopathy with multivessel coronary artery disease status post coronary stent, pulmonary edema, chronic obstructive lung disease. Pulmonary point of view, doing well. Continue p.r.n. 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 Will benefit from TRCU type services. Thank you and we will follow with you. Louie Denny MD
[2017-05-02] MEDS: Pantoprazole 40 mg EC Tab PO SCH (05:52)
[2017-05-02 07:18] LABS: BASO # 0.02 K/mm3 (0.0-2.0); BASO % 0.1 % (0.0-3.0); EOS # 0.3 (0.0-0.7); EOS % 1.4 % (1.5-5.0); GRAN # 14.33 (1.4-6.5); GRAN % 61.4 % (50.0-68.0); HEMOGLOBIN 15.3 g/dL (12.0-16.0); LYMPH # 6.6 (1.2-3.4); LYMPH % 28.3 % (22.0-35.0); MEAN CELL VOLUME 92.3 fl (80.0-105.0); MEAN CORPUSCULAR HEMOGLOBIN 31.7 pg (25.0-35.0); MEAN CORPUSCULAR HGB CONC 34.4 g/dl (31.0-37.0); MEAN PLATELET VOLUME 10.6 fl (7.0-11.0); MONO # 2.1 (0.1-0.6); MONO % 8.8 % (1.0-6.0); RBC 4.82 10^6/uL (3.5-6.1); RED CELL DISTRIBUTION WIDTH 12.8 % (11.5-14.5); WHITE BLOOD COUNT 23.3 10^3/ul (4.5-11.0)
[2017-05-02 07:42] LABS: BLOOD UREA NITROGEN 20 mg/dL (7-21); CALCIUM 9.5 mg/dL (8.4-10.5); GFR AFRICAN-AMERICAN > 60; GFR NON-AFRICAN AMERICAN > 60
[2017-05-02] MEDS: Acetylcysteine 20% Inhal Soln (4ml) IH SCH (08:22)
[2017-05-02] MEDS: Albuterol-Ipratrop 3 mg / 0.5 (3 ml) UD IH PRN (08:23)
[2017-05-02] MEDS: Insulin Reg-MEDIUM-Coverage SC SCH ×4 (08:33→22:11)
[2017-05-02] MEDS: Insulin Detemir 100 units/ml Vial (Levemir) SC SCH ×2 (09:26→18:10)
[2017-05-02] MEDS: Enoxaparin 40 mg Syringe SC SCH (09:27)
[2017-05-02] MEDS: Fluticasone Nasal 50 mcg/Spray NS SCH (09:27)
--- NOTE | 2017-05-02 13:26 | PN ---
DATE: 05/01/2017 SUBJECTIVE: The patient is comfortable, off oxygen. There is no chest pain. No respiratory distress except with walking to the bathroom with assistance. She feels weak, not much of a dyspnea, more generalized weakness. No chest pain. PHYSICAL EXAMINATION: VITAL SIGNS: Temperature 98.2, heart rate 88, blood pressure 107/63, respirations 20, saturation 97% on room air. HEAD AND NECK: Normal. No JVD. No thyromegaly. CHEST: Few basilar crackles, otherwise clear. CARDIAC: First sound and second sound normal. ABDOMEN: Soft and nontender. EXTREMITIES: No edema. NEUROLOGICAL: She is normal. She moves all extremities. She is alert, awake, and oriented x3. LABORATORY DATA: Blood sugar 122-200s. IMPRESSION AND PLAN: 1. Bilateral pneumonia, multilobar community-acquired pneumonia. The patient is doing better than before. She seems stable. She is seen by the consult. Currently, she is off any antibiotics as per Infectious Disease. 2. Status post cardiac catheterization for cardiomyopathy status post stent placement, 2 stents to right coronary artery and 2 stents to left anterior descending artery. She did have [id number] myocardial infarction with rise of troponin, currently on Brilinta. We will continue current treatment. 3. Ischemic cardiomyopathy. Ejection fraction is low at 25%. Continue Coreg. Continue Altace, Lasix 40 p.o. daily, and we will monitor her cardiac conditions. She will need another cardiac catheterization for right coronary artery. 4. Chronic obstructive pulmonary disease, smoker. Continue Nicoderm, inhaled bronchodilators. Continue steroids at this time. 5. Diabetes, insulin and Januvia. The patient is on Levemir. We will increase the insulin to 20 units b.i.d. We will consider decreasing the steroids to lower dose. We will discuss with Dr. Denny. Continue current therapy. Continue Januvia, insulin coverage. , and we will follow up clinically. 6. Continue gastrointestinal and deep venous thrombosis prophylaxis, and continue physical therapy. Luke Morgan MD
--- NOTE | 2017-05-02 14:09 | RAD ---
HISTORY: Pneumonia. COMPARISON: 04/29/2017. TECHNIQUE: Chest PA and lateral FINDINGS: LUNGS: Improved aeration of the lungs. PLEURA: No significant pleural effusion identified. No pneumothorax apparent. CARDIOVASCULAR: No radiographic findings to suggest acute or significant cardiovascular disease. OSSEOUS STRUCTURES: No significant abnormalities. VISUALIZED UPPER ABDOMEN: Normal. OTHER FINDINGS: None. IMPRESSION: No active disease. Interval improvement in interstitial changes/interstitial compared to 04/29/2017.
--- NOTE | 2017-05-02 14:19 | PN ---
DATE: 04/30/2017 SUBJECTIVE: The patient is in bed. She is comfortable. Family members around. She has no respiratory distress. She is off oxygen most of the time and she feel better. She has no chest pain, no respiratory distress except with working or exertion. PHYSICAL EXAMINATION: GENERAL: The patient seems comfortable in no distress. VITAL SIGNS: Her temperature 97.7, heart rate is 85, blood pressure 116/64, respirations 16, and saturations 95%. HEAD AND NECK: Normal. No JVD. No thyromegaly. CHEST: Reveals bilateral basal rales. CARDIAC: First sound and second sound normal. ABDOMEN: Soft and nontender. EXTREMITIES: No edema. NEUROLOGIC: Normal. LABORATORY DATA: White count 18.2, hemoglobin 14, hematocrit 40.8, and platelets 243. Sodium 138, potassium 4.2, chloride 94, bicarbonate 34, BUN 19, creatinine 0.6, blood sugar 227, before that is 164. IMPRESSION AND PLAN: 1. Status post non-ST elevation myocardial infarction, status post cardiac catheterization with 4 stents put in to right coronary artery and left anterior descending artery 2 in each. The patient is stable, no chest pain. She is on Plavix. 2. Bilateral pneumonia. The patient had history of fever resolved now with underlying chronic obstructive pulmonary disease. Continue nebulizer treatment. Continue IV antibiotics. The patient is seen by Dr. Denny and she is currently on Mucomyst, inhaled bronchodilators, and steroids. Continue current therapy. 3. Hypercholesterolemia, new onset diabetes. The patient is on insulin 15 units b.i.d. Continue insulin. Continue Norvasc. We will hold off on metformin because of possible cardiac cath again for left circumflex. We will continue gastrointestinal and deep venous thrombosis prophylaxis. The patient seems to be doing well and repeat lab in the morning and continue current therapy and we will follow up with the other consultants. The patient will get physical therapy and possibly go to TCU for rehab and continuation of physical therapy. Continue Nicoderm, Xanax p.r.n., and Protonix and Lovenox for GI and DVT prophylaxis. Luke Morgan MD [facility] # [id number]
--- NOTE | 2017-05-02 19:30 | PN ---
DATE: 05/02/2017 LOCATION: The patient is in room 373, bed 3. REASON FOR CONSULTATION AND FOLLOWUP: Bilateral pneumonia, [id number] elevation myocardial infarction, cardiogenic shock, status post multivessel PTCA, status post intraaortic balloon, status post removal of intraaortic balloon pump. SUBJECTIVE: The patient is sitting in chair without any chest pain, shortness of breath, or palpitation. PHYSICAL EXAMINATION: VITAL SIGNS: Blood pressure 122/55, respirations 20, pulse 98, and temperature is 97.9. HEENT: Head is normocephalic. Eyes, pupils normal. Conjunctivae normal. Nose and throat normal. NECK: JVP low. Carotids equal. THORAX: AP diameter normal. LUNGS: Clear. CARDIOVASCULAR: S1 and S2. ABDOMEN: Soft. No tenderness. No organomegaly. Bowel sounds normal. EXTREMITIES: No clubbing. No cyanosis. LABORATORY DATA: WBC 23.3, hemoglobin 15.3, hematocrit 44.5, and platelets 263. Sodium 136, potassium 3.7, BUN 20, creatinine is 0.6, random sugar 227, calcium 9.5, phosphorus 4.3, and magnesium 2.0. DIAGNOSES: Cardiogenic shock status post multivessel coronary angioplasty of proximal and distal right coronary arteries and left anterior descending artery with stent insertion, status post intraaortic balloon pump. The patient had repeat echocardiogram done 2 days ago that showed significantly decreased mitral regurgitation, left ventricular ejection fraction 25% to 30%, [id number] mitral regurgitation, and [id number]-[id number] tricuspid regurgitation. The patient had MUGA scan done 2 days ago that shows left ventricular ejection fraction of 28%. PLAN: The patient is scheduled for repeat cardiac catheterization and possible angioplasty with circumflex on , at that time, we will also take a look at LAD because previously the cardiac cath camera was broken and PTCA was completed with C-arm, so we will take another look at the LAD. The patient is on Lovenox 40 mg subcutaneously daily, furosemide 40 p.o. daily, insulin as ordered, aspirin 81 mg daily, carvedilol 3.125 b.i.d., Brilinta 90 mg p.o. b.i.d., Brilinta is replacing Plavix, ramipril 1.25 mg p.o. daily, Januvia 100 mg daily, atorvastatin 80 mg daily, prednisone 50 mg p.o. daily, Protonix 40 mg daily, and norepinephrine 4 mg in 250 mL of sodium chloride 4 mcg per minute. We will follow with you. Louie Munoz MD
--- NOTE | 2017-05-03 03:21 | PN ---
DATE: 05/02/2017 PULMONARY PROGRESS NOTE REFERRING PHYSICIAN: Luke Morgan MD SUBJECTIVE: The patient is sitting up in a bed. Family is at bedside. Feels better. Decreased cough, decreased shortness of breath. No nausea. No vomiting. No diarrhea. No leg pain. No leg swelling. OBJECTIVE GENERAL: In no acute distress. VITAL SIGNS: Temperature is 98, heart rate is 97, respiratory rate is 20, blood pressure 112/67, pulse oximetry 94% on nasal cannula. HEENT: Moist mucous membrane. No ulcer or thrush noted. Crowded airway. LUNGS: Have better airflow. Improved crackles. HEART: S1 and S2 ABDOMEN: Soft, nontender. No organomegaly. EXTREMITIES: There is no edema. NEUROLOGIC: Awake and alert. Follows simple commands. MEDICATIONS: She is on Mucomyst 20% inhaled q. 12 hours, Altace 1.25 mg daily, Brilinta 90 mg twice a day, Coreg 3.125 mg twice a day, DuoNeb q. 6 hours, Ecotrin 81 mg daily, Flonase one spray to each nostril daily, metformin 500 mg twice a day, insulin coverage, Januvia 100 mg daily, Lasix 40 mg daily, Levemir 20 units subcu twice a day, Lipitor 80 mg daily, Lovenox 40 mg daily, Nicoderm patch daily, prednisone 50 mg daily, Protonix 40 mg daily, Tylenol p.r.n., Xanax 0.5 mg at bedtime p.r.n., Xopenex inhaler q. 6 hours p.r.n. LABORATORY DATA: Shows hemoglobin 15.3, hematocrit 44.5, WBC 23,000, and platelet count is 263. Sodium 136, potassium 3.7, chloride 92, bicarbonate 32, BUN 20, creatinine 0.6, glucose 203, calcium 9.5, phosphorus 4.3, magnesium 2.0. Chest x-ray done today shows improvement in the interstitial changes. IMPRESSION AND PLAN: Cardiomyopathy with multivessel coronary artery disease, status post coronary stent; pulmonary edema; chronic obstructive lung disease. From pulmonary point of view, doing well. Continue p.o. 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 Thank you and we will follow with you. Louie Denny MD [facility] # [id number]
[2017-05-03] MEDS: Pantoprazole 40 mg EC Tab PO SCH (06:10)
[2017-05-03] MEDS: Insulin Reg-MEDIUM-Coverage SC SCH ×4 (08:13→22:29)
[2017-05-03] MEDS: Acetylcysteine 20% Inhal Soln (4ml) IH SCH ×2 (09:06→22:10)
--- NOTE | 2017-05-03 12:46 | PN ---
DATE: 05/02/2017 SUBJECTIVE: A 57-year-old female. She is in medical floor. The patient seems doing better, breathing better. No chest pain, no short of breath. No other complaints. PHYSICAL EXAMINATION VITAL SIGNS: Temperature 98, heart rate 97, blood pressure 112/67, respiration 20, O2 saturation 94% on room air. HEAD AND NECK: Normal. No JVD. No thyromegaly. CHEST: Clear on the bases. Clear, good air entry. CARDIAC: First sound and second sound are normal. ABDOMEN: Soft, obese, nontender. EXTREMITIES: No edema. NEUROLOGIC: Normal. The patient has physical therapy done today. She did well. No dyspnea. LABORATORY DATA: White count , hemoglobin 15.3, hematocrit 44.4, platelets 263. Chemistry noted for sodium 136, potassium 3.7, chloride 92, bicarb 32, BUN 20 and creatinine 0.6. Blood glucose is 203. Calcium, phosphorus and magnesium is normal. IMPRESSION AND PLAN: 1. Bilateral community-acquired pneumonia, improved. Repeat x-ray shows improved variation. Continue current therapy. The patient being seen by Dr. Denny, Pulmonary, and Dr. Guerrero, Infectious Disease doctor. Currently, she is off antibiotics. She is only on inhaled bronchodilators, Mucomyst, Flonase and oxygen plus patient takes NicoDerm CQ because of history of smoking and p.o. prednisone will be decreased to 50 mg daily. Continue current therapy for underlying lung disease, doing better. 2. Coronary artery disease, ischemic cardiomyopathy, chronic systolic dysfunctions with non-ST elevation myocardial infarction. During cardiac catheterization, she had 2 stents to right coronary artery, 2 stents to left anterior descending by Dr. Harding. She is going to be going for tomorrow for circumflex; otherwise, stable. MUGA scan shows low ejection fraction. We will consider further assessment of left ventricular function after all stents placed in and we will see how is her cardiac status myocardium from recent myocardial infarctions, which could make the left ventricular function worse. At least, we will follow up as outpatient to assist her left ventricular functions, and we will consider, if no improvement, may be electrophysiology evaluations for implantable cardioverter-defibrillator. 3. Diabetes, new onset. Continue Levemir, continue Januvia. We will continue insulin coverage. Blood sugar was between 100 to 200s, stable. 4. Chronic anxiety due to . Continue Xanax p.r.n. 5. Continue gastrointestinal and deep venous thrombosis prophylaxis. The patient is getting Protonix, getting Lovenox. Follow up clinically. 6. Congestive heart failure. She is currently on Lasix 40 p.o. daily, and she is stable and continue Altace, continue Coreg, Ecotrin and Brilinta 90 mg b.i.d. for antiplatelet therapy and atorvastatin 80 mg p.o. at bedtime. Continue current therapy. Follow up clinically. Luke Morgan MD
[2017-05-03] MEDS: Midazolam 2 MG/2 ML VIAL ONE ×2 (13:09→14:28)
[2017-05-03] MEDS: Lidocaine 2% Inj (20ml) ONE ×2 (13:12→14:27)
[2017-05-03] MEDS: Eptifibatide 20 mg/10mL Inj IVP ONE ×2 (13:28→14:27)
[2017-05-03] MEDS ORDERED: Sodium Chloride 0.9% 1,000 ML IV SCH (14:15)
[2017-05-03] MEDS: HEPARIN SODIUM/NS 2,000 ML IV ONE (14:26)
[2017-05-03] MEDS: Phenylephrine 10 mg/ml Inj ONE ×2 (14:28→16:27)
[2017-05-03] MEDS: Iohexol 350mgl/ml 50 ML ONE (14:28)
[2017-05-03] MEDS: Iodixanol 320 MG/ML 200 ML BOTTLE IV ONE (14:28)
[2017-05-03] MEDS: Insulin Detemir 100 units/ml Vial (Levemir) SC SCH ×2 (14:31→18:01)
--- NOTE | 2017-05-03 14:31 | CP.PCM.PN ---
Subjective - Date & Time of Evaluation Date of Evaluation: 05/03/17 Time of Evaluation: 11:35 - Subjective Subjective: Comfortable, breathing better, no fevers. Objective - Vital Signs/Intake and Output Vital Signs (last 24 hours): Temp Pulse Resp BP Pulse Ox 97.7 F 98 H 20 105/62 97 05/03/17 06:00 05/03/17 06:00 05/03/17 06:00 05/03/17 06:00 05/03/17 06:00 Intake and Output: 05/03/17 05/03/17 06:59 18:59 Intake Total 900 0 Output Total 1800 300 Balance -900 -300 - Medications Medications: Current Medications Acetaminophen (Tylenol 325mg Tab) 650 mg PO Q6H PRN PRN Reason: Fever >100.4 F Last Admin: 04/25/17 10:48 Dose: 650 mg Acetylcysteine (Acetylcysteine 20%) 4 ml IH Q12 [facility] Last Admin: 05/03/17 09:06 Dose: Not Given Albuterol/Ipratropium (Duoneb 3 Mg/0.5 Mg (3 Ml) Ud) 3 ml IH Q2H PRN PRN Reason: Shortness of Breath Last Admin: 05/02/17 08:23 Dose: 3 ml Alprazolam (Xanax) 0.5 mg PO HS PRN; Protocol PRN Reason: Anxiety Aspirin (Ecotrin) 81 mg PO DAILY [facility] Last Admin: 05/03/17 08:14 Dose: 81 mg Atorvastatin Calcium (Lipitor) 80 mg PO DIN [facility] Last Admin: 05/02/17 17:18 Dose: 80 mg Carvedilol (Coreg) 3.125 mg PO BID [facility] Last Admin: 05/02/17 17:19 Dose: 3.125 mg Fluticasone Propionate (Flonase) 1 actuation NS DAILY [facility] Last Admin: 05/02/17 09:27 Dose: 1 spr Furosemide (Lasix) 40 mg PO DAILY [facility] Last Admin: 05/02/17 09:28 Dose: 40 mg NOREPINEPHRINE BIT/0.9 % NACL (Levophed 4 Mg/ 250 Ml Ns Premixed) 4 mg in 250 mls @ 15 mls/hr IV .[id number] PRN; Protocol; 4 MCG/MIN PRN Reason: TITRATE PER MD ORDER Insulin Detemir (Levemir) 20 unit SC BID [facility] Last Admin: 05/02/17 18:10 Dose: 20 unit Insulin Human Regular (Humulin R Med) 0 units SC ACHS [facility] PRN Reason: Protocol Last Admin: 05/03/17 08:13 Dose: Not Given Levalbuterol HCl (Xopenex) 0.63 mg IH [id number] PRN PRN Reason: Shortness of Breath Last Admin: 05/01/17 20:30 Dose: 0.63 mg Metformin HCl (Glucophage) 500 mg PO BID [facility] Last Admin: 04/25/17 17:28 Dose: 500 mg Nicotine (Nicoderm Cq) 1 patch TD DAILY [facility] Last Admin: 05/02/17 09:32 Dose: Not Given Pantoprazole Sodium (Protonix Ec Tab) 40 mg PO 0600 [facility] Last Admin: 05/03/17 06:10 Dose: Not Given Prednisone (Prednisone Tab) 15 mg PO DAILY [facility] Last Admin: 05/02/17 10:43 Dose: Not Given Ramipril (Altace) 1.25 mg PO DAILY [facility] Last Admin: 05/02/17 09:28 Dose: 1.25 mg Sitagliptin Phosphate (Januvia) 100 mg PO DAILY [facility] Last Admin: 05/02/17 09:28 Dose: 100 mg Ticagrelor (Brilinta) 90 mg PO BID [facility] Last Admin: 05/03/17 08:14 Dose: 90 mg - Labs Labs: 05/02/17 06:30 05/02/17 06:30 PT 13.9 SECONDS (9.4-12.5) H 04/22/17 14:30 INR 1.27 (0.93-1.08) H 04/22/17 14:30 APTT 71.9 Seconds (25.1-36.5) H 04/28/17 02:20 - Constitutional Appears: Non-toxic - Head Exam Head Exam: NORMAL INSPECTION - ENT Exam ENT Exam: Mucous Membranes Moist - Neck Exam Neck Exam: absent: Meningismus - Respiratory Exam Respiratory Exam: Decreased Breath Sounds - Cardiovascular Exam Cardiovascular Exam: +S1, +S2 - GI/Abdominal Exam GI & Abdominal Exam: Soft. absent: Tenderness Assessment and Plan - Assessment and Plan (Free Text) Plan: Assessment S/P Sepsis due to bilateral community-acquired pneumonia, clinically improved and S/P treatment NSTEMI with CAD S/P PCI x 4 S/P with intra-aortic balloon pump placement COPD significant smoking history Plan completed course of Rocephin and doxycycline - will continue to monitor off antibiotics since she is at risk for nosocomial infections
[2017-05-03] MEDS: Fluticasone Nasal 50 mcg/Spray NS SCH (14:32)
[2017-05-03] MEDS: Digoxin 250 mcg (0.25 mg) Tab PO SCH (15:06)
--- NOTE | 2017-05-03 17:40 | CARD ---
APPROVED REPORT EKG Measurement Heart [id number] VT [id number] <Conclusion> Normal sinus rhythm Inferior infarct, age undetermined Abnormal ECG
[2017-05-03 17:57] LABS: BASO # 0.03 K/mm3 (0.0-2.0); BASO % 0.1 % (0.0-3.0); EOS # 0.2 (0.0-0.7); EOS % 0.9 % (1.5-5.0); GRAN # 16.66 (1.4-6.5); GRAN % 67.7 % (50.0-68.0); HEMOGLOBIN 14.2 g/dL (12.0-16.0); LYMPH % 24.2 % (22.0-35.0); MEAN CELL VOLUME 92.1 fl (80.0-105.0); MEAN CORPUSCULAR HEMOGLOBIN 31.3 pg (25.0-35.0); MEAN CORPUSCULAR HGB CONC 34.1 g/dl (31.0-37.0); MONO # 1.7 (0.1-0.6); MONO % 7.1 % (1.0-6.0); RBC 4.53 10^6/uL (3.5-6.1); RED CELL DISTRIBUTION WIDTH 13.2 % (11.5-14.5); WHITE BLOOD COUNT 24.6 10^3/ul (4.5-11.0)
[2017-05-03 18:04] LABS: BLOOD UREA NITROGEN 21 mg/dL (7-21); CALCIUM 8.9 mg/dL (8.4-10.5); GFR AFRICAN-AMERICAN > 60; GFR NON-AFRICAN AMERICAN > 60
--- NOTE | 2017-05-03 19:34 | CARD ---
APPROVED REPORT Procedure(s) performed: Left Heart Catheterization PTCA with Stenting of Mid Circumflex PTCA with Balloon Angioplasty of Ostial OM! PTCA with Balloon Angioplasty of Distal CX HISTORY 25%. (EF Method: LVG), diabetes mellitus with insulin treatment , chronic lung disease, previous diagnostic cath, tobacco history() : The patient is a current smoker , previous PCI (The PCI date was 04/26/2017), hypertension , dyslipidemia . INDICATION The indication(s) include : For staged PTCA of CX after two vessel PTCA in Cardiogenic shock. CASE TECHNIQUE The patient was brought electively to the Cardiac Catheterization Laboratory in a fasting state and was prepped and draped in a sterile manner. The right femoral groin was infiltrated with 2% Lidocaine subcutaneous anesthesia. A 6 Fr x 11 cm Zoya sheath was inserted into the right femoral artery without difficulty. Coronary angiography was performed using coronary diagnostic catheters. The left coronary system was accessed and visualized with a 6 Fr XB 3 catheter. The right coronary system was accessed and visualized with a Diagnostic ,6 Fr JR 4 catheter. The left ventricle was accessed and visualized with a 6 Fr Pigtail catheter. Left ventricular/Aortic Valve gradient assessed on pullback. Left ventriculogram was performed in MELARA projection. Closure device was deployed with a 6 Fr / 7 Fr MynxGrip without any complications. The patient tolerated the procedure well and there were no complications associated with the procedure. Vessel Analysis The patient's coronary anatomy is right dominant. The left main coronary artery is a medium size vessel with diffuse calcification noted throughout this vessel and without significant stenosis. The left main bifurcates to the left anterior descending and circumflex. The left anterior descending artery is a medium size vessel with diffuse calcification noted throughout this vessel and without significant stenosis. Patent stents in proximal and Mid LAD The first diagonal branch is a medium size vessel with diffuse calcification noted throughout this vessel and without significant stenosis. The circumflex artery is a medium size vessel with diffuse calcification noted throughout this vessel and with significant stenosis. There is a 80% stenosis in the mid segment. 99% stenosis in distal segments The first obtuse marginal branch is a medium size vessel with diffuse calcification noted throughout this vessel and with significant stenosis. There is a 90% stenosis in the ostial segment. The right coronary artery is a medium size vessel with diffuse calcification noted throughout this vessel and without significant stenosis. Patent stent in proximal and Distal RCA The right posterior descending artery is a small size vessel with diffuse calcification noted throughout this vessel and without significant stenosis. Left Ventricle The left ventricle is enlarged in size with moderately decreased contractility. Ischemic cardiomyopathy. The left ventricular ejection fraction is estimated to be 30%. The left ventricular end diastolic pressure is 16-18 mmHg. There was no gradient across the aortic valve upon pullback. PCI Technique Lesion Anticoagulation was achieved with Heparin. Percutaneous coronary intervention was performed on the distal circumflex artery segment. The lesion stenosis prior to intervention was 95% with FERNANDO 1 flow. A 6 Fr XB 3 Guide Catheter was used to engage the ostium. BALLOON DILATION A Balloon catheter 2.0 x 12 mm Sprinter RX was inserted and inflated up to 5.00atm for 46seconds. Multiple POBA with 5-6 atmos for 2-3 minutes Final angiography reveals 10-20 % stenosis with FERNANDO 3 flow. PCI Technique Lesion 2 Percutaneous Coronary Intervention was performed on the first obtuse marginal branch segment. The lesion stenosis prior to intervention was 90% with FERNANDO 2 flow. A 6 Fr XB 3 Guide Catheter was used to engage the ostium. BALLOON DILATION A Balloon catheter 2.0 x 12 mm Sprinter RX was inserted and inflated up to 8.00atm for 59seconds. Final angiography reveals 0 % stenosis with FERNANDO 3 flow. PCI Technique Lesion 3 Percutaneous Coronary Intervention was performed on the mid circumflex artery segment. The lesion stenosis prior to intervention was 80% with FERNANDO 2 flow. A 6 Fr XB 3 Guide Catheter was used to engage the ostium. STENT DEPLOYMENT A drug-eluting stent 3.0 x 12 mm Resolute TOMASA was inserted and inflated up to 12atm for 20seconds. Final angiography reveals 0 % stenosis with FERNANDO 3 flow. Conclusion Success ful PTCA with TOMASA of Mid Cx Successful POBA of Distal CX and ostial OM1 Patent Stents in LAD/ RCA placed on week ago EF-30%, EDP-16-18 Recommendations Smoking Cessation Aggressive Medical Therapy Weight Loss Reduction Program ASA and Brilanta for one year Re assess LV Fx in 3-6 months if remained below 35% consider AICD Discussd with family (sister and neice) and Pt. CC; Dr. russ
--- NOTE | 2017-05-03 19:39 | PN ---
DATE: 05/03/2017 REASON FOR CONSULTATION AND FOLLOWUP: Bilateral pneumonia, non-ST segment myocardial infarction, multivessel PTCA. Today, the patient underwent cardiac catheterization and stenting of circumflex. SUBJECTIVE: The patient denies any chest pain, shortness of breath, any palpitation. OBJECTIVE: GENERAL: Not in apparent distress. VITAL SIGNS: Temperature afebrile, heart rate 60, and blood pressure 105/62. HEENT: PERRLA intact. NECK: Supple. No carotid bruits or thyromegaly. CHEST: Clear to auscultation. HEART: S1 and S2 regular. ABDOMEN: Soft. EXTREMITIES: Clubbing and cyanosis negative. LABORATORY DATA: WBC 23.3, hemoglobin 15, hematocrit 45.5, and platelet count 263. Chemistry shows sodium 136, potassium 3.7, chloride 92, bicarbonate 32, anion gap of 15, BUN 20, and creatinine 0.6. IMPRESSION: Bilateral pneumonia; non-ST segment myocardial infarction, multivessel coronary artery disease, status post cardiogenic shock, status post multivessel percutaneous transluminal coronary angioplasty, two stents in right coronary artery, two stents in left anterior descending, with intraaortic balloon pump on 04/26/2017. Today, the patient underwent catheterization that revealed two stents in right coronary artery, proximal and distal patent stent, and two proximal and mid in left anterior descending, circumflex with high-grade stenosis, so proximal drug-eluting stent was placed and did have plain balloon angioplasty in obtuse marginal 1, ejection fraction 30%. PLAN: Continue SHAWNA inhibitor, digoxin, diuretics, Coreg, ticagrelor that is Brilinta, and atorvastatin. Reassess the LV function in 3 to 6 months. If ejection fraction remains below 35%, consider AICD. Discussed with Dr. Morgan, discussed with the patient, discussed with the patient's niece, Tea Esparza. We will follow with you. Louie Harding MD
[2017-05-03] MEDS ORDERED: Potassium Chloride 20 mEq ER Tab PO ONE (19:42)
[2017-05-03] MEDS: Albuterol-Ipratrop 3 mg / 0.5 (3 ml) UD IH PRN (22:10)
--- NOTE | 2017-05-03 23:42 | PN ---
DATE: 05/03/2017 REFERRING PHYSICIAN: Luke Morgan MD SUBJECTIVE: She is lying in the bed, lying flat, status post cath and circumflex stent. No headache. No rhinitis. Breathing is okay. No nausea. No vomiting. No diarrhea. OBJECTIVE: GENERAL: In no acute distress. VITAL SIGNS: Temperature is 98, heart rate is 96, respiratory rate is 20, blood pressure 106/59, and pulse ox 96% on room air. HEENT: Moist mucous membranes. Crowded airway. Mallampati score is IV. NECK: Supple. No JVD. LUNGS: Have a scattered rhonchi. ____ expiratory phase. HEART: S1 and S2. ABDOMEN: Soft. Nontender. No organomegaly. EXTREMITIES: There is no edema. NEUROLOGIC: Awake and alert. Follows simple commands. MEDICATIONS: She is on Brilinta 90 mg twice a day, Coreg 3.125 mg twice a day, albuterol/Atrovent nebulizer q. 2 hours, metformin 500 mg twice a day, digoxin 0.25 mg daily, insulin coverage, Lipitor 80 mg daily, prednisone 15 mg daily, Protonix 40 mg daily, IV fluids normal saline 50 mL per hour, Tylenol p.r.n., Xanax 0.5 mg at bedtime p.r.n., and Xopenex inhaled q. 6 hours. LABORATORY DATA: Shows hemoglobin 14.2, hematocrit 41.7, WBC 24,000, and platelet is 254. Sodium 136, potassium 2.1, chloride 97, bicarbonate 27, BUN 21, and creatinine 0.5. Glucose is 132, and calcium is 8.9. IMPRESSION AND PLAN: Adenopathy with multivessel coronary artery disease, status post cath and circumflex stent resolving pulmonary edema, chronic obstructive lung disease, may have a component of sleep apnea syndrome. Spoke to family at bedside. All the questions answered. Spoke to nursing staff. Decrease prednisone to 10 mg daily. Continue inhaled bronchodilator. Sleep apnea precaution. On Brilinta after stents placement. The patient has to stop smoking. Thank you and we will follow with you. Louie Denny MD
[2017-05-04] MEDS: Pantoprazole 40 mg EC Tab PO SCH (06:33)
[2017-05-04 06:38] LABS: BASO # 0.02 K/mm3 (0.0-2.0); BASO % 0.1 % (0.0-3.0); EOS # 0.4 (0.0-0.7); EOS % 1.7 % (1.5-5.0); GRAN # 17.57 (1.4-6.5); LYMPH # 2.3 (1.2-3.4); LYMPH % 10.8 % (22.0-35.0); MEAN CELL VOLUME 93.1 fl (80.0-105.0); MEAN CORPUSCULAR HEMOGLOBIN 31.2 pg (25.0-35.0); MEAN CORPUSCULAR HGB CONC 33.5 g/dl (31.0-37.0); MEAN PLATELET VOLUME 10.8 fl (7.0-11.0); MONO # 1.2 (0.1-0.6); MONO % 5.4 % (1.0-6.0); RBC 4.49 10^6/uL (3.5-6.1); RED CELL DISTRIBUTION WIDTH 13.3 % (11.5-14.5); WHITE BLOOD COUNT 21.4 10^3/ul (4.5-11.0)
[2017-05-04 07:08] LABS: ALB/GLOB RATIO 1.1 (1.1-1.8); ALBUMIN 3.8 g/dL (3.0-4.8); ALT/SGPT 75 U/L (7-56); AST/SGOT 50 U/L (14-36); BLOOD UREA NITROGEN 14 mg/dL (7-21); GFR AFRICAN-AMERICAN > 60; GFR NON-AFRICAN AMERICAN > 60; MAGNESIUM 2.1 mg/dL (1.7-2.2)
[2017-05-04] MEDS: Levalbuterol 0.63 MG/3 ML Inhal Soln UD IH PRN (07:47)
[2017-05-04] MEDS: Acetylcysteine 20% Inhal Soln (4ml) IH SCH ×2 (07:47→10:37)
[2017-05-04] MEDS: Insulin Reg-MEDIUM-Coverage SC SCH ×4 (08:18→23:37)
[2017-05-04] MEDS: Insulin Detemir 100 units/ml Vial (Levemir) SC SCH ×2 (10:38→17:47)
[2017-05-04] MEDS: Fluticasone Nasal 50 mcg/Spray NS SCH (12:02)
--- NOTE | 2017-05-04 13:52 | CP.PCM.PN ---
Subjective - Date & Time of Evaluation Date of Evaluation: 05/04/17 Time of Evaluation: 10:05 - Subjective Subjective: Comfortable, no fevers, not in distress. Objective - Vital Signs/Intake and Output Vital Signs (last 24 hours): Temp Pulse Resp BP Pulse Ox 97.7 F 85 20 102/68 98 05/04/17 06:00 05/04/17 06:00 05/04/17 06:00 05/04/17 06:00 05/04/17 06:00 Intake and Output: 05/03/17 05/04/17 18:59 06:59 Intake Total 0 1120 Output Total 300 Balance -300 1120 - Medications Medications: Current Medications Acetaminophen (Tylenol 325mg Tab) 650 mg PO Q6H PRN PRN Reason: Fever >100.4 F Last Admin: 04/25/17 10:48 Dose: 650 mg Acetylcysteine (Acetylcysteine 20%) 4 ml IH Q12 [facility] Last Admin: 05/03/17 09:06 Dose: Not Given Albuterol/Ipratropium (Duoneb 3 Mg/0.5 Mg (3 Ml) Ud) 3 ml IH Q2H PRN PRN Reason: Shortness of Breath Last Admin: 05/03/17 22:10 Dose: 3 ml Alprazolam (Xanax) 0.5 mg PO HS PRN; Protocol PRN Reason: Anxiety Aspirin (Ecotrin) 81 mg PO DAILY [facility] Last Admin: 05/03/17 14:30 Dose: Not Given Atorvastatin Calcium (Lipitor) 80 mg PO DIN [facility] Last Admin: 05/03/17 18:05 Dose: 80 mg Carvedilol (Coreg) 3.125 mg PO BID [facility] Last Admin: 05/03/17 18:05 Dose: 3.125 mg Digoxin (Lanoxin) 0.25 mg PO 1400 [facility] Last Admin: 05/03/17 15:06 Dose: 0.25 mg Fluticasone Propionate (Flonase) 1 actuation NS DAILY [facility] Last Admin: 05/03/17 14:32 Dose: Not Given Furosemide (Lasix) 40 mg PO DAILY [facility] Last Admin: 05/03/17 14:33 Dose: Not Given Insulin Detemir (Levemir) 20 unit SC BID [facility] Last Admin: 05/03/17 18:01 Dose: 20 unit Insulin Human Regular (Humulin R Med) 0 units SC ACHS [facility] PRN Reason: Protocol Last Admin: 05/03/17 22:29 Dose: Not Given Levalbuterol HCl (Xopenex) 0.63 mg IH [id number] PRN PRN Reason: Shortness of Breath Last Admin: 05/01/17 20:30 Dose: 0.63 mg Metformin HCl (Glucophage) 500 mg PO BID [facility] Last Admin: 04/25/17 17:28 Dose: 500 mg Nicotine (Nicoderm Cq) 1 patch TD DAILY [facility] Last Admin: 05/03/17 14:33 Dose: Not Given Pantoprazole Sodium (Protonix Ec Tab) 40 mg PO 0600 [facility] Last Admin: 05/04/17 06:33 Dose: 40 mg Prednisone (Prednisone Tab) 10 mg PO DAILY [facility] Ramipril (Altace) 1.25 mg PO DAILY [facility] Last Admin: 05/03/17 14:32 Dose: Not Given Sitagliptin Phosphate (Januvia) 100 mg PO DAILY [facility] Last Admin: 05/03/17 14:33 Dose: Not Given Ticagrelor (Brilinta) 90 mg PO BID [facility] Last Admin: 05/03/17 18:05 Dose: 90 mg - Labs Labs: 05/04/17 06:00 05/03/17 17:45 PT 13.9 SECONDS (9.4-12.5) H 04/22/17 14:30 INR 1.27 (0.93-1.08) H 04/22/17 14:30 APTT 71.9 Seconds (25.1-36.5) H 04/28/17 02:20 - Constitutional Appears: Non-toxic, Chronically Ill - Head Exam Head Exam: NORMAL INSPECTION - Neck Exam Neck Exam: absent: Meningismus - Respiratory Exam Respiratory Exam: Decreased Breath Sounds - Cardiovascular Exam Cardiovascular Exam: +S1, +S2 - GI/Abdominal Exam GI & Abdominal Exam: Soft. absent: Tenderness Assessment and Plan - Assessment and Plan (Free Text) Plan: Assessment S/P Sepsis due to bilateral community-acquired pneumonia, clinically improved and S/P treatment NSTEMI with CAD S/P PCI x 4 S/P with intra-aortic balloon pump placement COPD significant smoking history Plan completed course of Rocephin and doxycycline - will continue to monitor off antibiotics since she is at risk for hospital-acquired infections
[2017-05-04] MEDS: Digoxin 250 mcg (0.25 mg) Tab PO SCH (14:35)
--- NOTE | 2017-05-04 19:58 | CARD ---
APPROVED REPORT EKG Measurement Heart [id number] [id number] <Conclusion> Normal sinus rhythm Inferior infarct, age undetermined Anterior infarct, age undetermined Abnormal ECG
--- NOTE | 2017-05-04 20:05 | CARD ---
APPROVED REPORT EKG Measurement Heart [id number] [id number] <Conclusion> Normal sinus rhythm Inferior infarct, age undetermined Abnormal ECG
[2017-05-04] MEDS: HEPARIN SODIUM/NS 2,000 ML IV ONE (21:30)
[2017-05-04] MEDS: Iohexol 350mgl/ml 50 ML ONE (21:31)
[2017-05-04] MEDS: Iodixanol 320 MG/ML 200 ML BOTTLE IV ONE (21:32)
[2017-05-05] MEDS: Acetylcysteine 20% Inhal Soln (4ml) IH SCH ×2 (01:25→09:30)
--- NOTE | 2017-05-05 02:54 | PN ---
DATE: 05/04/2017 REFERRING PHYSICIAN: Luke Morgan MD SUBJECTIVE: Patient is sitting up in the bed. Night was unremarkable. Feels much better, able to ambulate today without much shortness of breath. No nausea. No vomiting. No diarrhea. No leg pain or leg swelling. PHYSICAL EXAMINATION: GENERAL: In no acute distress. VITAL SIGNS: Temperature is 98, heart rate is 90, respiratory rate is 18, blood pressure 100/66, and pulse ox 97% on room air. HEENT: Moist mucous membranes. Crowded airway. NECK: Supple. No JVD. LUNGS: Have fair airflow with few rhonchi. HEART: S1 and S2. ABDOMEN: Soft. Nontender. No organomegaly. EXTREMITIES: There is no edema. NEUROLOGIC: Awake and alert. Follows simple commands. MEDICATIONS: She is on Altace 1.25 mg daily, Brilinta 90 mg twice a day, Coreg 3.125 mg twice a day, DuoNeb q. 2 hours p.r.n., Ecotrin 81 mg daily, Flonase one spray to each nostril daily, Glucophage 500 mg twice a day, which is on hold. Januvia 100 mg daily, digoxin 0.25 mg daily, Lasix 40 mg daily, Levemir 20 units subcutaneous twice a day, Lipitor 80 mg daily, Nicoderm patch daily, prednisone 5 mg daily and will taper off next day or so, Tylenol p.r.n., Xanax 0.5 mg at bedtime p.r.n., Xopenex inhaler q. 6 hours. LABORATORY DATA: Hemoglobin 14.0, hematocrit 41.8, WBC 21.4, and platelet is 264. Sodium 136, potassium 4.3, chloride 99, bicarbonate 27, BUN 14, and creatinine 0.5. Glucose is 208, calcium is 9.0, phosphorus 3.4, magnesium 2.1. AST 50, ALT 75, alkaline phosphatase is 86, albumin is 3.8. IMPRESSION AND PLAN: Cardiomyopathy with multivessel coronary artery disease status post multiple coronary stents, resolved pulmonary edema, chronic obstructive lung disease. May have sleep apnea syndrome. Patient is urged to stop smoking. Continue inhaled bronchodilator. Agree with tapering prednisone. Out of bed to chair, ambulate. Will benefit from therapy. We will follow with you. Louie Denny MD
[2017-05-05] MEDS: Pantoprazole 40 mg EC Tab PO SCH (06:55)
[2017-05-05] MEDS: Insulin Reg-MEDIUM-Coverage SC SCH ×4 (08:19→21:39)
[2017-05-05] MEDS: Insulin Detemir 100 units/ml Vial (Levemir) SC SCH ×2 (09:55→17:57)
[2017-05-05] MEDS: Fluticasone Nasal 50 mcg/Spray NS SCH (09:57)
--- NOTE | 2017-05-05 11:42 | PN ---
DATE: 05/04/2017 SUBJECTIVE: The patient seems doing better. She is in no respiratory distress, sitting in the bed, comfortable and discussed with her her medical conditions in detail. PHYSICAL EXAMINATION: VITAL SIGNS: Temperature 97.1, heart rate 93, blood pressure 112/72, respirations 20, saturation 97% on room air. HEAD AND NECK: Normal. No JVD. No thyromegaly. CHEST: Clear, good air entry. CARDIAC: First sound and second sound are normal. ABDOMEN: Soft, nontender. EXTREMITIES: No edema. NEUROLOGIC: Normal LABORATORY STUDIES: Sodium 136, potassium 4.2, chloride 99, bicarb 27, BUN 14, creatinine 0.5. Blood sugar is 208. Liver enzymes slightly elevated. Total bili is normal. AST slightly elevated at 50, ALT is 75. Hematology, CBC, white count went down to 21.4, hemoglobin 14, hematocrit 21.8, platelets 264. IMPRESSION AND PLAN: 1. Ishemic cardiomyopathy, severe, ejection fraction 20% to 30%, patient is status post cardiac cath, left anterior descending, right coronary artery, and recently left circumflex with angioplasty and stent placement. The patient did well. Continue current medications, Coreg, digoxin, Lasix, and monitor her blood pressure. The patient may consider an ICD in the future and will follow up clinically. Continue ARBs, SHAWNA inhibitor 1.25 mg daily. Will monitor her condition, her vitals, and will titrate the medication according to her clinical status. At this point, continue current medications at same dosage and follow up. 2. Diabetes type 2. We will continue current treatment right now. She is using Januvia. hold off on metformin for cardiac cath. She can go back and will monitor the patient clinically. 3. Bilateral community acquired pneumonia resolved, off antibiotics. 4. Nicotine smoking addiction, she uses Nicoderm. 5. Continue gastrointestinal and deep venous thrombosis prophylaxis. 6. Chronic obstructive pulmonary disease, tapered down steroids to 10 mg, then will taper it down to 5 mg. Continue inhaled bronchodilators. Continue Ventolin. The patient will be discharged in the morning. Luke Morgan MD [facility] # [id number]
[2017-05-05 13:30] VITALS: PULSE 90
[2017-05-05] MEDS: Digoxin 250 mcg (0.25 mg) Tab PO SCH (13:30)
--- NOTE | 2017-05-05 14:22 | PN ---
DATE: 05/05/2017 SUBJECTIVE: The patient is seen earlier this morning in room 274, bed 2. No fevers, no chills. Uneventful night. PHYSICAL EXAMINATION: VITAL SIGNS: Temperature is 98, blood pressure is 137/66, respiratory rate of 18, heart rate of 98. HEENT: Unremarkable. NECK: Supple. LUNGS: Have decreased breath sounds. HEART: Normal S1, S2. ABDOMEN: Soft, nontender. LABORATORY EXAMINATION: Reveals a white count of 21,400, hemoglobin of 14, platelets of 264. Coagulation is noted. Chemistries reveal a BUN of 21, creatinine of 0.5. Procalcitonin is 0.08. Urinalysis is noted. Serology; HIV is negative, influenza is negative, urine for Legionella antigen is negative. Microbiology reveals nasal MRSA is negative. Urine culture is negative. Blood cultures are negative. Review of orders reveals the patient to be on prednisone. ASSESSMENT AND PLAN: This is a 57-year-old female status post sepsis due to bilateral community-acquired pneumonia, clinically improved status post treatment. The patient with [id number] myocardial infarction with coronary artery disease, status post percutaneous coronary intervention x4 with intraaortic balloon pump placement, chronic obstructive lung disease, significant smoking history, and has completed a course of ceftriaxone and doxycycline. Currently, off of antibiotics, afebrile. The patient is at risk for developing nosocomial infection and we will follow with you. The patient with cardiomyopathy, multivessel coronary artery disease, coronary stents, resolved pulmonary edema, and chronic obstructive lung disease. Bobo Bess MD
--- NOTE | 2017-05-05 20:47 | PN ---
DATE: 05/05/2017 PULMONARY PROGRESS NOTE REFERRING PHYSICIAN: Dr. Morgan. SUBJECTIVE: The patient is sitting up in the bed. Night was unremarkable. Feels better. No cough or sputum production. No chest pain. No nausea. No vomiting or diarrhea. No leg pain or leg swelling. PHYSICAL EXAMINATION GENERAL: In no acute distress. VITAL SIGNS: Temperature is 98, heart rate is 90, respiratory rate is 18, blood pressure 114/79, and pulse ox 98% on room air. HEENT: Moist mucous membranes. Crowded airway. NECK: Supple. No JVD. LUNGS: Has a fair airflow. HEART: S1 and S2. ABDOMEN: Soft. Nontender. No organomegaly. EXTREMITIES: There is no edema. NEUROLOGIC: Awake and alert. Follows simple commands. MEDICATIONS: She is on Altace 1.25 mg daily, Brilinta 90 mg twice a day, Coreg 3.125 mg twice a day, DuoNeb q. 6 hours, Ecotrin 81 mg daily, Flonase one spray to each nostril daily, metformin 500 mg twice a day, insulin coverage Januvia 100 mg daily, digoxin 0.25 mg daily, Levemir 20 units subcutaneous twice a day, Lipitor 80 mg daily, Nicoderm patch daily, prednisone 5 mg daily and Protonix 40 mg daily, Tylenol p.r.n., Xanax 0.5 mg at bedtime p.r.n., Xopenex q. 8 hours. LABORATORY DATA: Reviewed. Blood sugar this morning 226. Microbiology; no new data available. IMPRESSION AND PLAN: Cardiomyopathy with multivessel coronary artery disease status post coronary stents, resolved pulmonary edema, chronic obstructive lung disease. May have sleep apnea syndrome. Pulmonary point of view, doing okay. On p.o. and inhaled bronchodilator. Diuretics, beta braulio, gastric prophylaxis, DVT prophylaxis. The patient should ambulate. Will benefit from therapy. Thank you and we will follow with you. Louie Denny MD
--- NOTE | 2017-05-05 22:48 | PN ---
DATE: 05/05/2017 LOCATION: The patient is in room #274, bed 2. REASON FOR CONSULTATION AND FOLLOWUP: Bilateral pneumonia, akl-PV-sstwhpa elevation myocardial infarction, multivessel PTCA. SUBJECTIVE: The patient is sitting in chair without any chest pain, shortness of breath, or palpitation. PHYSICAL EXAMINATION VITAL SIGNS: Blood pressure 114/79, respirations 20, pulse 90 and temperature 97.9. HEENT: Head is normocephalic. Eyes; pupils are normal. Conjunctivae are normal. Nose and throat are normal. NECK: JVP low. Carotids are equal. THORAX: AP diameter normal. LUNGS: Clear. CARDIOVASCULAR: S1 and S2. ABDOMEN: Soft. No tenderness. No organomegaly. Bowel sounds normal. EXTREMITIES: No clubbing. No cyanosis. LABORATORY DATA: WBC 21.4, hemoglobin 14.0, hematocrit 41.8, and platelets 264. Random sugar 226. Sodium 136, potassium 3.7, BUN 20, creatinine 0.6, calcium 9.5, phosphorus 4.3 and magnesium 2.0. DIAGNOSES: Bilateral pneumonia, tzz-OG-rwijghs elevation myocardial infarction, multivessel coronary artery disease, status post cardiogenic shock, status post two stents in the right coronary artery and two stents in left anterior descending with intraaortic balloon pump on 04/26/2017. On 05/03/2017, the patient underwent cardiac catheterization which showed previous two stents in right coronary artery and two in left anterior descending were patent. The patient had circumflex high-grade stenosis, so drug-eluting stent was put in proximal circumflex and a plain balloon angioplasty of obtuse marginal was done. The patient's left ventricular ejection fraction of 30%. PLAN: Continue Ramipril 1.25 p.o. daily, Brilinta 90 mg b.i.d., Coreg 3.125 b.i.d., aspirin 81 mg daily, metformin 500 b.i.d., Januvia 100 mg p.o. daily, digoxin 0.25 daily, furosemide 40 p.o. daily, insulin Levemir 20 units subcu b.i.d., Lipitor 80 mg daily, prednisone 5 mg daily and Protonix 40 daily. The patient's LV function will be reassessed in 3 to 6 months, if ejection fraction is still below 35%, then we will consider AICD insertion. We will continue to follow. Louie Munoz MD
[2017-05-06 00:18] VITALS: RESP 18
[2017-05-06 06:10] VITALS: TEMP 98.6; O2SAT 95
[2017-05-06] MEDS: Pantoprazole 40 mg EC Tab PO SCH (06:40)
[2017-05-06] MEDS: Insulin Reg-MEDIUM-Coverage SC SCH (08:07)
[2017-05-06] MEDS: Fluticasone Nasal 50 mcg/Spray NS SCH (09:38)
[2017-05-06 09:42] VITALS: BP 124/77; PULSE 76
[2017-05-06] MEDS: Insulin Detemir 100 units/ml Vial (Levemir) SC SCH (09:43)
[2017-05-06] MEDS: Acetylcysteine 20% Inhal Soln (4ml) IH SCH (10:00)
--- NOTE | 2017-05-06 10:34 | PN ---
DATE: 05/06/2017 SUBJECTIVE: The patient was seen earlier. Today, Ms. Kim Linton in 274, bed 2. No fevers and no chills. The patient is doing better. PHYSICAL EXAMINATION: VITAL SIGNS: Temperature is 98, blood pressure is 115/70, respiratory rate of 18, heart rate of 72. HEENT: Unremarkable. NECK: Supple. LUNGS: Have decreased breath sounds. HEART: Normal S1, S2. ABDOMEN: Soft, nontender. No organomegaly. No rebound or guarding. No masses. LABORATORY EXAMINATION: Reveals a white count of 21,000, hemoglobin of 14, platelets of 264. Chemistries reveal the BUN of 14, creatinine of 0.5. Procalcitonin is noted to be at 0.08, and urinalysis is noted. HIV is negative. Urine for Legionella is negative. Influenza is negative. Blood cultures, sputum cultures, urine cultures are negative. Review of orders reveals the patient to be on p.o. prednisone off of antibiotics. Dr. Denny's note from yesterday is reviewed. Dr. Munoz's cardiology note is also reviewed. ASSESSMENT/PLAN: This is a 57-year-old female status post sepsis due to bilateral community-acquired pneumonia, clinically improved, status post treatment and non-ST elevation myocardial infarction with coronary artery disease, status post percutaneous coronary intervention x4, intra-aortic balloon pump placement and chronic obstructive lung disease, significant smoking history. Has completed a course of antibiotics with ceftriaxone and doxycycline. Currently off of antibiotics, afebrile. The patient is at risk for developing nosocomial infections. Bobo Bess MD
--- NOTE | 2017-05-07 00:31 | PN ---
DATE: 05/06/2017 SUBJECTIVE: The patient clinically stable, comfortable, in no distress. She was walking without any commercial lending assistant to the bathroom. She has no chest pain, no respiratory distress. She just feel weak. PHYSICAL EXAMINATION: VITAL SIGNS: As follows; temperature is 98.3, heart rate 69, blood pressure 115/69, respirations 20, and O2 saturations 97%. HEAD AND NECK: Normal. No JVD. No thyromegaly. CHEST: Clear, good air entry. CARDIAC: First sound and second sounds are normal. ABDOMEN: Soft and nontender. EXTREMITIES: No edema. NEUROLOGIC: Normal. LABORATORY STUDIES: Sodium 136, potassium 4.3, chloride 99, bicarb 27, BUN 14, and creatinine 0.5. White count 21.4, hemoglobin 14, hematocrit 41.8, and platelets 264. IMPRESSION AND PLAN: 1. Acute chronic obstructive pulmonary disease exacerbation: Continue tapered steroid. We will discharge the patient on p.o. prednisone for four more days and could be discontinued. Continue inhaled bronchodilators. 2. Community-acquired pneumonia, multilobar pneumonia. She is improved, doing well, off antibiotic. We will follow up clinically. 3. Status post cardiac stenting. She had almost five stents total put in over two sessions of cardiac catheterization, complicated the first cath was non ST-elevation myocardial infarction. The patient's ejection fraction 25% to 30%. We will need an ICD. Repeat echocardiogram in three to six months period to monitor LV functions. Continue aspirin. Continue Brilinta. We will follow up clinically. 4. Diabetes type 2: The patient was educated about how to use the machine to check her sugar. She was given metformin, Januvia, and we will give Prandin 0.5 mg p.o. t.i.d. We will follow up as outpatient. 5. Smoking, nicotine dependence: Subsequently, we will give her NicoDerm CQ 14 mg p.o. daily. 6. Cardiomyopathy: Continue Lasix, Lenoxin, Coreg, and Altace, and follow up as outpatient. DISCHARGE MEDICATIONS: Prednisone 20 mg first day then 15, 10, 5 and then stop, metformin 500 mg 3 times a day, Brilinta 90 b.i.d., Januvia 100 once a day, Prandin 0.5 mg p.o. t.i.d., Altace 1.25 mg p.o. daily, Protonix 40 once a day, NicoDerm 14 mg, Lasix 40 p.o. daily, Lenoxin 0.25 mg p.o. daily, Coreg 3.125 mg b.i.d., Lipitor 80 at bedtime, aspirin 81 mg, Xanax 0.5 at bedtime p.r.n., and Ventolin two puffs t.i.d. We will see the patient in a week. The patient does not want to go to any far away rehab, but she will get physical therapy as outpatient and at home. Luke Morgan MD
--- NOTE | 2017-05-07 08:23 | PN ---
DATE: 05/04/2017 REASON FOR CONSULTATION AND FOLLOWUP: Bilateral pneumonia, non-ST segment myocardial infarction, status post multivessel PTCA. Yesterday, the patient underwent PTCA of the circumflex. SUBJECTIVE: The patient denies any chest pain, shortness of breath or any palpitation. OBJECTIVE: GENERAL: Not in apparent distress. VITAL SIGNS: As follows; temperature afebrile, heart rate 75, and blood pressure 111/75. HEENT: PERRLA. Extraocular muscles intact. NECK: Supple. No carotid bruits or thyromegaly. CHEST: Clear to auscultation. HEART: S1 and S2, regular. ABDOMEN: Soft. EXTREMITIES: Clubbing and cyanosis negative. LABORATORY DATA: Blood workup as follows; WBC 21.4, hemoglobin 14, and platelet count 264. Chemistry shows sodium 130, potassium 4.0, chloride 99, carbon dioxide 27, anion gap of 14, BUN of 14, and creatinine 0.5. IMPRESSION: Non-ST segment myocardial infarction, bilateral pneumonia, cardiogenic shock, status post multivessel percutaneous transluminal coronary angioplasty. Yesterday, the patient underwent left heart catheterization that revealed patent stent in the proximal and distal right coronary artery, patent stent, two stents in left anterior descending, and yesterday, the patient underwent successful percutaneous transluminal coronary angioplasty of the mid and distal circumflex, and obtuse marginal plain balloon angioplasty, ejection fraction 30%. RECOMMENDATIONS: Continue aspirin, continue Brilinta, continue ramipril 1.25 mg daily, continue metformin, continue digoxin, continue SHAWNA inhibitors, continue low-dose Coreg, ramipril, and gentle diuretics. Discussed with the patient, we will discontinue telemetry, possible transfer to TCU upon discharge. We will see the patient and reassess left ventricular function remain below 35 . Discussed with the patient, patient's niece, Tea Esparza, and patient's sister. puncture site looks nice healing and no hematoma or bruit noted. The patient is okay to go for TCU. Louie Harding MD
--- NOTE | 2017-05-07 09:11 | PN ---
DATE: 05/03/2017 SUBJECTIVE: Status post cardiac cath. She seems to have minimal chest pain, no palpitations. Afebrile . PHYSICAL EXAMINATION: VITAL SIGNS: Temperature is 98.3, heart rate is 94, blood pressure , saturating 98%. HEAD AND NECK: Normal. No JVD, no thyromegaly. CHEST: Clear. Few rales with rhonchi. CARDIAC: First sound and second sound normal. ABDOMEN: Soft and nontender. EXTREMITIES: No edema. NEUROLOGIC: Normal. LABORATORY DATA: white count 24.6, hemoglobin 14.2, hematocrit and platelets . Chemistries; sodium 136, potassium 3.1, chloride 97, bicarbonate , BUN 21, creatinine 0.5, blood sugar 132, and calcium 8.9. IMPRESSION AND PLAN: 1. Status post cardiac cath and stent to circumflex with angioplasty. Patient tolerated the procedure better. The patient feels better. Continue Brilinta. Continue aspirin. 2. Patient has ischemic cardiomyopathy with ejection fraction between 20-30%. She will need an ICD generator . We will repeat serial echo and will follow up clinically. Continue on Coreg 3.125 mg once a day, aspirin 81 mg once a day, Brilinta 90 mg p.o. b.i.d. The patient is also getting Lasix 40 mg p.o. daily, Lanoxin 0.25 mg once a day, and patch. The patient may take treatment in the future . Continue monitoring this patient clinically, she is stable . 3. Bilateral community-acquired pneumonia, resolved. Patient is doing much better. . 4. Anxiety. Xanax. . 5. Diabetes. Continue keep the patient on insulin coverage and Glucophage and the patient will be p.o. . Continue current therapy patient. Luke Morgan MD [facility] # [id number]
== END 2017-05-06 11:30 | disposition home or self-care (01) | DRG 853 ==
LOC: ED 12:45 → ERH 15:46 → 3RNO 17:25 → ICU 04-26 15:57 → 3RSO 04-29 11:42 → 2RSO 05-03 14:14
PROVIDERS: ADMIT Internal Medicine; ATTEND Internal Medicine
PROC: 027134Z Dilation of Coronary Artery, Two Arteries with Drug-eluting Intraluminal Device, Percutaneous Approach (ICD-10-PCS; principal; 2017-04-26)
PROC: 5A02210 Assistance with Cardiac Output using Balloon Pump, Continuous (ICD-10-PCS; 2017-04-26)
PROC: 4A023N7 Measurement of Cardiac Sampling and Pressure, Left Heart, Percutaneous Approach (ICD-10-PCS; 2017-04-26)
PROC: B2151ZZ Fluoroscopy of Left Heart using Low Osmolar Contrast (ICD-10-PCS; 2017-04-26)
PROC: B2111ZZ Fluoroscopy of Multiple Coronary Arteries using Low Osmolar Contrast (ICD-10-PCS; 2017-04-26)
PROC: 3E033PZ Introduction of Platelet Inhibitor into Peripheral Vein, Percutaneous Approach (ICD-10-PCS; 2017-04-26)
PROC: 027034Z Dilation of Coronary Artery, One Artery with Drug-eluting Intraluminal Device, Percutaneous Approach (ICD-10-PCS; 2017-05-03)
PROC: 4A023N7 Measurement of Cardiac Sampling and Pressure, Left Heart, Percutaneous Approach (ICD-10-PCS; 2017-05-03)
PROC: B2151ZZ Fluoroscopy of Left Heart using Low Osmolar Contrast (ICD-10-PCS; 2017-05-03)
PROC: B2111ZZ Fluoroscopy of Multiple Coronary Arteries using Low Osmolar Contrast (ICD-10-PCS; 2017-05-03)
DX: A41.9 Sepsis, unspecified organism (principal); J18.9 Pneumonia, unspecified organism; I21.4 Non-ST elevation (NSTEMI) myocardial infarction; R57.0 Cardiogenic shock; J44.1 Chronic obstructive pulmonary disease with (acute) exacerbation; J44.0 Chronic obstructive pulmonary disease with (acute) lower respiratory infection; I11.0 Hypertensive heart disease with heart failure; I50.9 Heart failure, unspecified; E11.65 Type 2 diabetes mellitus with hyperglycemia; F17.210 Nicotine dependence, cigarettes, uncomplicated; I25.10 Atherosclerotic heart disease of native coronary artery without angina pectoris; E78.00 Pure hypercholesterolemia, unspecified; I25.5 Ischemic cardiomyopathy; R06.03 Acute respiratory distress; I08.1 Rheumatic disorders of both mitral and tricuspid valves; E78.5 Hyperlipidemia, unspecified; F06.4 Anxiety disorder due to known physiological condition; E66.9 Obesity, unspecified; G47.33 Obstructive sleep apnea (adult) (pediatric); Z68.27 Body mass index [BMI] 27.0-27.9, adult; Z79.84 Long term (current) use of oral hypoglycemic drugs

== ENCOUNTER 2018-05-01 09:06 | Outpatient (CLI) | payer BC | END 2018-05-01 09:07 | disposition home or self-care (01) | LOC: CARDIO 09:06 | DX: I25.10 Atherosclerotic heart disease of native coronary artery without angina pectoris (principal); E11.9 Type 2 diabetes mellitus without complications; E78.00 Pure hypercholesterolemia, unspecified; Z79.82 Long term (current) use of aspirin; Z79.84 Long term (current) use of oral hypoglycemic drugs; Z79.899 Other long term (current) drug therapy ==

== ENCOUNTER 2018-07-18 12:49 | Outpatient (CLI) | payer BC | END 2018-07-18 12:50 | disposition home or self-care (01) | LOC: LAB 12:49 ==